=== PATIENT | female | born 1970 | race Caucasian/White ===

== ENCOUNTER 2020-04-19 13:46 | Emergency (ER) | payer OTHER, SELFPAY ==
[2020-04-19 15:34] VITALS: BP 130/84; PULSE 80; RESP 16; TEMP 36.7; O2SAT 99; BMI 40.0
--- NOTE | 2020-04-19 15:59 | ED.GENADULT ---
HPI - General Adult General Chief complaint: General Medical Stated complaint: covid symptoms Time Seen by Provider: 04/19/20 15:59 Source: patient Mode of arrival: ambulatory Limitations: no limitations History of Present Illness HPI narrative: 49-year-old female who presents the emergency room for evaluation of viral-like illness. The patient's son who is also a patient here in the emergency department tested positive for COVID-19 six days prior and received a result 2 days prior. She states she has been sick for approximately 2 days. She complains of right-sided chest pain which is worse with breathing, cough, diarrhea, headache, body aches. She states that she has shortness of breath mainly at night and some mild dyspnea on exertion. She states that she has been able to eat drink. Related Data Allergies Allergy/AdvReac Type Severity Reaction Status Date / Time No Known Allergies Allergy Unverified 01/10/20 16:09 [No Known Allergies*] Review of Systems Review of Systems: Yes all other systems are reviewed and are negative Constitutional: Constitutional: Reports as per HPI Eyes: Eyes: Reports as per HPI ENT: Reports as per HPI Cardiovascular: Cardiovascular: Reports as per HPI Respiratory: Respiratory: Reports as per HPI Gastrointestinal: Gastrointestinal: Reports as per HPI Genitourinary: Genitourinary: Reports as per HPI Musculoskeletal: Musculoskeletal: Reports as per HPI Integumentary/Breasts: Skin/Breast: Reports as per HPI Neurologic: Reports as per HPI and Reports Abnormal speech present Psychiatric: Psychiatric: Reports as per HPI Allergic/Immunologic: Allergic/Immunologic: Reports as per HPI [facility] Past Medical History Attestation statement: The following information was validated with the patient. [facility] Narrative: Patient has a history of hypertension, she states she had a myocardial infarction in the past approximately 10 years ago, she has hypothyroidism. She does smoke cigarettes, she denies alcohol drug use. Social History Social History Advance Directives: No Advance Directives Information Provided: No Physical Exam Vital Signs: Vital Signs: Last Vital Signs Temp 98.0 F 04/19/20 15:34 Pulse 80 04/19/20 15:34 Resp 16 04/19/20 15:34 BP 130/84 04/19/20 15:34 Pulse Ox 99 04/19/20 15:34 Body Mass Index 40.0 Const: General: cooperative and healthy appearing Nutritional Appearance: average body habitus Orientation/consciousness: oriented to person and oriented to place Limitations: no limitations HENMT: Head: Yes normal to inspection, Yes normocephalic and Yes atraumatic Ears: external ears normal General nose exam: Normal external nose present Face and sinus: Yes normal facial exam Mouth: Normal oral and palatal mucosa present Throat: Yes posterior oropharynx normal Eyes: General: appearance normal, both eyes and all related structures Alignment and Position: alignment normal Periorbital: periorbital findings normal Eyelids: Yes eyelids normal Conjunctivae: conjunctivae normal Sclerae: sclerae normal Pupils: Equal, round and reactive pupils present Direct Ophthalmoscopy: normal light reflex Neck: Neck: Yes normal visual inspection and Yes supple Thyroid: Thyroid normal Chest: Chest palpation & inspection: normal inspection of the chest and normal palpation of entire chest wall Resp: Effort & Inspection: normal respiratory effort and able to speak in complete sentences Auscultation: clear to auscultation bilaterally, no crackles, no rales and no rhonchi Cardio: Rate: regular rate Rhythm: regular rhythm Heart sounds: S1 normal heart sound present, S2 normal heart sound present and no murmurs GI: Inspection: Yes normal to inspection Palpation (GI): Soft to palpation, nontender and no guarding Auscultation: normal bowel sounds : General: Yes no CVA tenderness Back/Spine/Pelvis: Back: no CVA tenderness Cervical Spine: normal cervical lordosis Thoracic/Lumbar Spine: thoracic and lumbar spine normal to inspection Skin: General skin exam: no rashes or lesions noted Lesions: no lesions Rashes: no rashes Trauma: no lacerations or abrasions Neuro: General: oriented to person and oriented to place Cranial nerves: Yes CN's II-XII intact bilaterally and Yes Equal, round and reactive pupils present Cognition (Neuro): normal cognition Speech: Abnormal speech present Motor exam (neuro): 5/5 motor strength present throughout Extrem: General: Yes normal to inspection and Yes full ROM Psych: Appearance: grossly normal and well kempt Mental Status: mental status grossly normal Speech and movement: Normal speech and movement present Affect: normal affect Attitude: cooperative Thought process: Normal thought process present Thought content: Normal thought content present Insight: Good insight present (Psych) Judgement: Good judgement present (Psych) Course Course Course Narrative: 49-year-old female who presents emergency department with viral-like illness whose son tested COVID positive 2 days prior. The patient's vital signs reveal there is afebrile with a temperature of 98?, respiratory rate 16 and O2 saturation of 99% on room air. At this time, the patient's symptoms are consistent with COVID-19 infection but I do not think that she has a significant COVID-19 pneumonia or hypoxia and can continue to be managed as an outpatient. I did discuss this with the patient using a tea leaf reader. Discharge Plan Discharge Clinical Impression: COVID-19 virus infection Patient Disposition: Home, Self-Care Instructions: COVID-19 (Coronavirus Disease 2019) (ED) Additional Instructions: Your symptoms are consistent with COVID-19. You need to quarantine for 14 days. Take ibuprofen 200 mg pills, 3 pills every 6 hours as needed for pain. Take Tylenol (acetaminophen) 500 mg pills, 2 pills every 4 to 6 hours as needed for pain. Rest. Increase your fluid intake. Please return to emergency department if your symptoms get worse or if you develop any new symptoms that are concerning to you. Print Language: Korean
== END 2020-04-19 16:44 | disposition home or self-care (01) ==
PROVIDERS: Emergency Provider Emergency Medicine Emergency Medical Services
DX: B34.9 Viral infection, unspecified (principal); Z20.828 Contact with and (suspected) exposure to other viral communicable diseases; F17.210 Nicotine dependence, cigarettes, uncomplicated
CPT/HCPCS: 99283

== ENCOUNTER 2020-04-28 14:05 | Outpatient (REF) | payer OTHER, SELFPAY | END 2020-04-28 14:06 | disposition home or self-care (01) | LOC: HO.LAB 14:05 | PROVIDERS: Visit Provider Internal Medicine | DX: Z20.828 Contact with and (suspected) exposure to other viral communicable diseases (principal) | CPT/HCPCS: 36415; C9803; U0003 ==

== ENCOUNTER → 2020-05-20 10:51 | Outpatient (BNVA) | payer OTHER, SELFPAY | PROVIDERS: Visit Provider Orthopaedic Surgery | DX: M22.2X2 Patellofemoral disorders, left knee (principal); M54.16 Radiculopathy, lumbar region | CPT/HCPCS: 20610; 99212; J1040 ==

== ENCOUNTER → 2020-10-03 11:21 | Outpatient (BNVA) | payer OTHER, SELFPAY | PROVIDERS: Visit Provider Orthopaedic Surgery | DX: M22.2X2 Patellofemoral disorders, left knee (principal); M54.16 Radiculopathy, lumbar region | CPT/HCPCS: 99212; J1040 ==

== ENCOUNTER → 2021-06-09 09:39 | Outpatient (BNV) | payer MEDICAID, SELFPAY | PROVIDERS: PCP Family Medicine; Visit Provider Internal Medicine Medical Oncology | DX: D50.9 Iron deficiency anemia, unspecified (principal); N63.23 Unspecified lump in the left breast, lower outer quadrant; R23.3 Spontaneous ecchymoses | CPT/HCPCS: 99213; 99214 ==

== ENCOUNTER 2021-07-06 07:58 | Outpatient (REF) | payer MEDICAID, SELFPAY | END 2021-07-06 07:59 | disposition home or self-care (01) | LOC: HO.MDS 07:58 | PROVIDERS: PCP Family Medicine; Visit Provider Internal Medicine Medical Oncology | DX: D50.9 Iron deficiency anemia, unspecified (principal) | CPT/HCPCS: 96365; 96366; J1200; J1750; Q0163 ==

== ENCOUNTER 2021-07-09 13:33 | Outpatient (REF) | payer MEDICAID, SELFPAY ==
--- NOTE | ~2021-07-09 | MM_ITS ---
EXAMINATION: MM SCREENING DIGITAL BREAST TOMOSYNTHESIS, BILATERAL CLINICAL INFORMATION: Screening. Asymptomatic. The lifetime risk of breast cancer based on the Tyrer-Cuzick Model is 13%. COMPARISON: Mammography: 08/29/2017, 07/30/2016, 06/05/2015 TECHNIQUE: Digital mammography is performed in craniocaudal and mediolateral oblique views along with computer-aided detection (CAD). Digital breast tomosynthesis is performed in implant-displaced craniocaudal and implant-displaced mediolateral oblique views along with computer-aided detection (CAD). Synthesized 2D images are generated from the tomosynthesis. Additional implant displaced right MLO view is obtained. FINDINGS: There are scattered areas of fibroglandular density (ACR BI-RADS breast composition Category b). There are no significant masses, abnormal calcifications, or other abnormalities. There are bilateral implants. The implant contours are smooth and similar to prior studies. The parenchymal pattern is similar to prior exams. There is no developing density or interval architectural changes. No significant change from prior studies. MM/MM tomosynthesis screen imp BI IMPRESSION: No mammographic evidence of malignancy. ASSESSMENT: BI-RADS 1: Negative RECOMMENDATION: Routine annual mammography screening. This patient's information was entered into a reminder system with a target due date for their next mammogram.
== END 2021-07-09 13:34 | disposition home or self-care (01) ==
LOC: HO.MAMMO 13:33
PROVIDERS: Visit Provider Family Medicine
DX: Z12.31 Encounter for screening mammogram for malignant neoplasm of breast (principal)
CPT/HCPCS: 77063; 77067

== ENCOUNTER 2021-07-30 13:19 | Outpatient (REF) | payer MEDICAID, SELFPAY ==
--- NOTE | ~2021-07-30 | US_ITS ---
EXAMINATION: US THYROID CLINICAL INFORMATION: Nontoxic single thyroid nodule. COMPARISON: Thyroid ultrasound 01/30/2018. TECHNIQUE: Linear transducer grayscale and color Doppler examination with attention to the region of the thyroid. FINDINGS: SIZE: Measurements of the thyroid lobes and nodules are given in sagittal, anteroposterior and transverse dimensions respectively. Right Thyroid Lobe: 2.7 x 0.5 x 0.5 cm, volume 0.3 mL. Previously 3.3 x 1.0 x 0.8 cm, volume 1.4 mL. Parenchyma: The gland echotexture is homogeneous. Thyroid vascularity is normal. Left Thyroid Lobe: 2.5 x 0.8 x 1.0 cm, volume 1.0 mL. Previously 2.6 x 1.2 x 0.9 cm, volume 1.4 mL. Parenchyma: The gland echotexture is homogeneous. Thyroid vascularity is normal. Isthmus: 0.2 cm in maximum AP dimension. Previously 0.2 cm. Estimated total number of nodules greater than or equal to 1 cm: 0. Crusher And Binder Operator nodules are described as follows: 1. Location: Left lateral. Size: 0.3 x 0.4 x 0.5 cm, volume 0.03 mL. Previously: 0.3 x 0.2 x 0.3 cm, volume 0.001 mL. Nodule characteristics: Composition: Cystic(0). ACR TI-RADS total points: 0 ACR TI-RADS category: 1 Significant change in size (>/= 20% in 2 dimensions and minimal increase of 2 mm or 50% or greater increase in volume): No Change in features: No Change in ACR TI-RADS risk category: Not applicable NODES: No lymphadenopathy is seen in the tissue surrounding the thyroid gland. US/US thyroid IMPRESSION: Small thyroid gland. Stable small left thyroid nodule.. ACR TI-RADS RECOMMENDATION REFERENCE: Ultrasound-guided fine-needle aspiration, followup ultrasound, no further follow up. * TR1 (0 point) and TR 2 (2 points): No FNA or follow up * TR3 (3 points): FNA if more than or equal to 2.5 cm in maximum dimension, followup ultrasound in 1, 3 and 5 years if 1.5 to 2.4 cm in maximum dimension. * TR4 (4-6 points): FNA if more than or equal to 1.5 cm in maximum dimension, followup ultrasound in 1, 2, 3 and 5 years if 1 to 1.4 cm in maximum dimension. * TR5 (more than or equal to 7 points): FNA if more than or equal to 1 cm in maximum dimension, followup ultrasound every year for 5 years if 0.5 to 0.9 cm in maximum dimension. * TR3, TR4 or TR5 nodules that are below the size threshold for follow up receive no follow up.
== END 2021-07-30 13:20 | disposition home or self-care (01) ==
LOC: HO.US 13:19
PROVIDERS: Visit Provider Family Medicine
DX: E04.1 Nontoxic single thyroid nodule (principal)
CPT/HCPCS: 76536

== ENCOUNTER 2021-07-31 11:00 | Outpatient (RCR) | payer MEDICAID, SELFPAY | END 2021-09-09 14:39 | disposition home or self-care (01) | LOC: HO.PT 11:00 | PROVIDERS: PCP Family Medicine; Visit Provider Family Medicine | DX: Z98.890 Other specified postprocedural states (principal) | CPT/HCPCS: 97110; 97140; 97162; 97530 ==

== ENCOUNTER 2021-08-13 10:48 | Outpatient (REF) | payer MEDICAID, SELFPAY ==
--- NOTE | ~2021-08-13 | XR_ITS ---
EXAMINATION: XR lumbar spine 4V min CLINICAL INFORMATION: Reason for Exam OTHER SPONDYLOSIS, LUMBAR REGION COMPARISON: MR lumbar spine 02/12/2011 TECHNIQUE: 5 views of the lumbar spine XR/XR lumbar spine 4V min FINDINGS/IMPRESSION: Conventional lumbosacral anatomy with 5 nonrib-bearing lumbar-type vertebral bodies. Vertebral body heights are maintained. Levoconvex curvature of the lumbar spine. Grade 1 retrolisthesis of L3 on L4, new from prior. No pars defects. Lumbar disc space heights are maintained without significant degenerative change. There is mild degenerative disc disease visualized lower thoracic spine with mild loss of disc space height. Bilateral upper quadrant and right mid abdominal surgical clips.
--- NOTE | ~2021-08-13 | XR_ITS ---
EXAMINATION: XR knee LT 4V CLINICAL INFORMATION: Knee pain COMPARISON: Knee radiographs 03/14/2019 TECHNIQUE: 4 views of the knee XR/XR knee LT 4V FINDINGS/IMPRESSION: No acute fracture or dislocation. Moderate degenerative changes of the knee progressed from prior worst involving the medial compartment with there is loss of joint space with medial and patellofemoral compartment osteophytes. Question of an abandoned surgical screw tract through the medial tibial plateau. No joint effusion. Soft tissues are unremarkable.
== END 2021-08-13 10:49 | disposition home or self-care (01) ==
LOC: HO.XRAY 10:48
PROVIDERS: PCP Family Medicine; Visit Provider Physical Medicine & Rehabilitation
DX: M25.562 Pain in left knee (principal); M47.896 Other spondylosis, lumbar region; E66.01 Morbid (severe) obesity due to excess calories
CPT/HCPCS: 72110; 73564

== ENCOUNTER 2021-09-09 07:35 | Outpatient (REF) | payer MEDICAID, SELFPAY ==
[2021-09-09 09:05] LABS: MANUAL DIFF FLAG NO
[2021-09-09 10:20] LABS: Basophils Percent Auto 0.6 % (0-2); Eosinophils Absolute Auto 0.1 X10*3/uL (0.0-0.4); Eosinophils Percent Auto 1.3 % (0-4); Hematocrit 34.8 % (37.0-47.0); Imm Gran Abs Auto 0.02 X10*3/uL (0.00-0.03); Imm Gran Pct Auto 0.3 % (0.0-0.4); Lymphocytes Percent Auto 28.3 % (20-40); Mean Corpuscular HGB Conc 31.6 g/dl (31.0-35.0); Mean Corpuscular Hemoglobin 34.6 pg (27.0-33.0); Mean Corpuscular Volume 109.4 fL (80.0-98.0); Mean Platelet Volume 9.6 fL (9.4-12.3); Monocytes Absolute Auto 1.4 X10*3/uL (0.1-1.2); Monocytes Percent Auto 19.8 % (2-11); Neutrophils Absolute Auto 3.4 x10*3/uL (2.0-8.3); Neutrophils Percent Auto 49.7 % (45-73); Platelet Count 322 X10*3/uL (160-400); Red Blood Count 3.18 X10*6/uL (4.20-5.50); Red Cell Distribution Width 14.4 % (11.0-16.0); White Blood Count 6.9 X10*3/uL (4.8-10.8)
[2021-09-09 11:03] LABS: Alanine Aminotransferase 20 U/L (0-31); Albumin Level 4.1 g/dL (3.5-5.0); Alkaline Phosphatase 119 U/L (39-117); Anion Gap 11 (12-20); Aspartate Amino Transferase 20 U/L (5-31); Bilirubin Total 0.2 mg/dL (0.0-1.0); Blood Urea Nitrogen 23 mg/dL (9-16); Calcium 8.7 mg/dL (8.4-10.2); Carbon Dioxide 27 mmol/L (22-29); Chloride 105 mmol/L (96-108); Estimated Glomerular Filt Rate 58; Glucose Random 66 mg/dL (60-115); Iron 34 mcg/dL (30-160); Percent Iron Saturation 12 % (15-50); Potassium 4.3 mmol/L (3.3-5.1); Sodium 139 mmol/L (135-145); Total Iron Binding Capacity 291 mcg/dL (228-428); Total Protein 6.5 g/dL (6.5-8.0); Unsaturated Iron Binding 257 ug/dL
== END 2021-09-09 07:36 | disposition home or self-care (01) ==
LOC: HO.LAB 07:35
PROVIDERS: PCP Family Medicine; Referring Provider Family Medicine; Visit Provider Physician Assistant
DX: R10.13 Epigastric pain (principal); R11.2 Nausea with vomiting, unspecified; K59.09 Other constipation; K21.9 Gastro-esophageal reflux disease without esophagitis; Z86.010 Personal history of colon polyps
CPT/HCPCS: 36415; 80053; 83540; 85025; 99202

== ENCOUNTER 2021-09-11 10:46 | Outpatient (REF) | payer MEDICAID, SELFPAY ==
--- NOTE | ~2021-09-11 | CT_ITS ---
EXAMINATION: CT CHEST WITHOUT CONTRAST CLINICAL INFORMATION: Abnormal finding of lung field COMPARISON: Previous chest CTA June 2019 TECHNIQUE: Multidetector volumetric CT imaging of the chest was done. Axial MIP volume rendering provided. Sagittal and coronal reformatted images were obtained. This CT examination was performed using dose optimization techniques as appropriate, variously including the following: *Automated exposure control *Adjustment of mA and/or kV according to patient size (this includes techniques or standardized protocols for targeted exams where dose is matched to indication/reason for exam; i.e. extremities or head) *Use of iterative reconstruction technique DLP: 123 mGy-cm FINDINGS: MARKETING EDITOR: LUNGS: There is a 2 mm right upper lobe peripheral or subpleural nodule axial image series 7. There is a 3 mm peripheral or subpleural left lower lobe nodule axial image 354 series 7. The lungs are otherwise clear. No endobronchial or endotracheal lesion is seen. MEDIASTINUM: The mediastinum is normal. PLEURA: There is no pleural effusion. No pleural mass or thickening. AXILLA: Bilateral breast implants. No chest wall mass or enlarged axillary lymph nodes. UPPER ABDOMEN: There are postsurgical changes to the stomach. OSSEOUS STRUCTURES: Degenerative changes of the spine. CT/CT chest wo con IMPRESSION: Small pulmonary nodules probably representing peripheral or subpleural lymph nodes. These are not appreciated on previous June 2019 chest CTA. According to the UPDATED 2017 Fleischner Society recommendations, the advised follow-up imaging for less than 6 mm solid nodule: Low risk, no chest CT follow-up and high risk, optional chest CT follow-up in one year. Fleischner guidelines were followed.
== END 2021-09-11 10:47 | disposition home or self-care (01) ==
LOC: HO.CT 10:46
PROVIDERS: Visit Provider Family Medicine
DX: R91.8 Other nonspecific abnormal finding of lung field (principal)
CPT/HCPCS: 71250

== ENCOUNTER 2021-10-29 09:37 | Outpatient (REF) | payer MEDICAID, SELFPAY ==
--- NOTE | ~2021-10-29 | FL_ITS ---
EXAMINATION: FL BARIUM SWALLOW CLINICAL INFORMATION: Nausea with vomiting. COMPARISON: CT scan of the chest August 2021. Prior upper GI series with small bowel January 2019. TECHNIQUE: Barium swallow examination is performed using fluoroscopic evaluation in addition to multiple fluoroscopic spot views. The patient is imaged both upright and prone and using both thick and thin sulfate along with effervescent granules. FLUOROSCOPY TIME: 0.7 minutes IMAGES: 18 TOTAL: 18.201 mGy DAP: 5.465 Gy-cm2 FINDINGS: Findings consistent with prior gastric surgery. A hiatal hernia is noted as seen previously. No reflux. The swallowing mechanism appears normal. Normal passage of contrast through the esophagus with otherwise normal-appearing contraction. No filling defects or ulcerations or stricture. FL/FL barium swallow IMPRESSION: Persistent hiatal hernia without reflux. Additional findings are stable consistent with history of prior gastric surgery.
== END 2021-10-29 09:38 | disposition home or self-care (01) ==
LOC: HO.XRAY 09:37
PROVIDERS: PCP Family Medicine; Visit Provider Physician Assistant
DX: R10.13 Epigastric pain (principal); K21.9 Gastro-esophageal reflux disease without esophagitis; K59.09 Other constipation; R11.2 Nausea with vomiting, unspecified; Z98.84 Bariatric surgery status
CPT/HCPCS: 74220

== ENCOUNTER 2022-02-24 06:04 | Inpatient (IN) | payer MEDICAID, SELFPAY ==
[2022-02-24] VITALS (11 sets, daily range): BP systolic 95–118; BP diastolic 58–76; PULSE 76–108; RESP 15–28; TEMP 35.5–37.3; O2SAT 91–100; BMI 32.8
--- NOTE | ~2022-02-24 | XR_ITS ---
EXAMINATION: XR CHEST CLINICAL INFORMATION: Mental status change, rhonchi COMPARISON: 09/11/2021 TECHNIQUE: Frontal view of the chest was obtained. FINDINGS: The lungs are hypoinflated. Heterogeneous opacities are present in the suprahilar regions bilaterally. No appreciable pneumothorax or pleural effusion. The cardiomediastinal contour is unremarkable. No acute osseous findings are seen. XR/XR chest 1V IMPRESSION: Heterogeneous opacities in the suprahilar regions bilaterally, which could reflect pneumonia versus aspiration in the proper clinical setting.
[2022-02-24 06:12] LABS: Glucose, Whole Blood 197 mg/dL (60-115)
--- NOTE | 2022-02-24 06:16 | ECG_ITS ---
Test Reason : UNRESPONSIVE Blood Pressure : / mmHG Vent. Rate : 106 BPM Atrial Rate : 106 BPM P-R Int : 148 ms QRS Dur : 094 ms QT Int : 374 ms P-R-T Axes : 062 -05 039 degrees QTc Int : 496 ms Sinus tachycardia Otherwise normal ECG When compared with ECG of 12-JUL-2019 10:06, No significant change was found Heart rate has increased Referred By: John Sandy Electronically Signed By:PREETI CURIEL MD
--- NOTE | 2022-02-24 06:16 | ED.AMS ---
HPI - Altered Mental Status General Chief Complaint: Overdose Stated Complaint: unresponsive Time Seen by Provider: 02/24/22 06:15 Source: patient and EMS Mode of arrival: EMS Limitations: no limitations (Speaks some Maori, 1st language is Tamazight, vocational training instructor used.) and altered mental status History of Present Illness HPI narrative: 51-year-old female who presents emergency department for evaluation of altered mental status. According to the paramedics, the family was unable to wake the patient up this morning and they called 911. According to paramedics, the police were on the scene 1st in were assisting the patient's respirations with a bag-valve mask. Paramedics noted pinpoint pupils and the patient was given Narcan with little effect. However the patient did open her eyes but was nonverbal. In the emergency department she was able to tell me her name but did appear to be lethargic. She was given Narcan 2 mg IV in became awake and more responsive. The patient stated that she was anxious last night and her friend gave her till which she was told was lorazepam. The patient denies drug use. Related Data Home Medications Medication Instructions Recorded Confirmed amlodipine 10 mg tablet 1 tab PO DAILY 06/09/21 11/16/21 aspirin 81 mg tablet,delayed 1 tab PO DAILY 06/09/21 11/16/21 release carvedilol 3.125 mg tablet 1 tab PO BID 06/09/21 11/16/21 docusate sodium 100 mg capsule 2 cap PO DAILY PRN constipation 06/09/21 11/16/21 duloxetine 30 mg capsule,delayed 1 cap PO DAILY 06/09/21 11/16/21 release ferrous sulfate 325 mg (65 mg 1 tab PO TID 06/09/21 11/16/21 iron) tablet (FeroSul) furosemide 20 mg tablet 1 tab PO DAILY 06/09/21 11/16/21 isosorbide mononitrate 30 mg 1 tab PO QPM 06/09/21 09/09/21 tablet,extended release 24 hr meclizine 25 mg tablet 1 tab PO Q8H PRN dizziness 06/09/21 11/16/21 nitroglycerin 0.4 mg sublingual 0.4 mg sublingual NEEDED PRN 06/09/21 09/09/21 tablet Chest Pain sertraline 25 mg tablet 1 tab PO DAILY 06/09/21 11/16/21 levothyroxine 150 mcg tablet 1 tab PO DAILY 11/16/21 11/16/21 Previous Rx's Medication Instructions Recorded pantoprazole 20 mg tablet,delayed 20 mg PO BID 30 days #60 tabs 09/09/21 release polyethylene glycol 3350 17 17 g PO DAILY #510 grams 09/09/21 gram/dose oral powder (Miralax) sucralfate 1 gram tablet 1 g PO QID #90 tabs 11/24/21 Allergies Allergy/AdvReac Type Severity Reaction Status Date / Time No Known Allergies Allergy Unverified 06/09/21 09:54 [No Known Allergies*] Review of Systems Review of Systems: Yes Unobtainable due to mental status PMFSH Past Medical History Medical History Depression HTN (hypertension) Hx of chest pain Hyperlipidemia Iron deficiency anemia Osteoarthritis Surgical History History of knee surgery History of Ceci-en-Y gastric bypass (~2004) Hx of appendectomy Hx of colonoscopy Hx of esophagogastroduodenoscopy (~02/2018) Status post laparoscopic cholecystectomy Status post tonsillectomy Family History Family History Sister Breast cancer Social History Social History Household Members: None Housing: House Are you a primary insurance healthcare consultant to a significant other at home: No Do you presently have visiting nurse or other home services: No Patient Tobacco Use Status: Never used Tobacco Second Hand Smoke Exposure: No Advance Directives: No Advance Directives Information Provided: No service: No Current occupational status: employed Current occupation: daycare provider Physical Exam ED Vital Signs: Vital Signs - 24 hr 02/24/22 06:11 Temperature 95.9 F L Pulse Rate 108 H Respiratory Rate 28 H Blood Pressure 115/76 Pulse Oximetry 100 Oxygen Delivery Method Nasal Cannula BMI result Body Mass Index 32.8 Const Other: Lethargic but arousable, patient was much more responsive after receiving Narcan 2 mg IV HENMT Head: Yes normal to inspection, Yes normocephalic and Yes atraumatic Ears: external ears normal General nose exam: Normal external nose present Face and sinus: Yes normal facial exam Mouth: Normal oral and palatal mucosa present Throat: Yes posterior oropharynx normal Eyes General: appearance normal, both eyes and all related structures Neck Neck: Yes normal visual inspection, Yes no lymphadenopathy, Yes trachea midline and Yes supple Chest Chest palpation & inspection: normal inspection of the chest and normal palpation of entire chest wall Resp Auscultation: rhonchi (Diffuse rhonchorous sounds, no wheezing, no rales) Cardio Rate: regular rate Rhythm: regular rhythm Heart sounds: S1 normal heart sound present, S2 normal heart sound present and no murmurs GI Inspection: Yes normal to inspection Palpation (GI): Soft to palpation, nontender and no guarding Auscultation: normal bowel sounds General: Yes no CVA tenderness Back/Spine/Pelvis Back: no CVA tenderness Skin General skin exam: no rashes or lesions noted Neuro Other: Oriented to person, lethargic but more arousable after receiving Narcan, moves all extremities symmetrically, oriented to person and place Extrem General: Yes normal to inspection Psych Appearance: grossly normal Course Course Course Narrative: 51-year-old female who was unarousable this morning, her family was unable to wake her up in the called 911. Police and 1st responders and felt that the patient was not breathing appropriately and they assisted her breathing with a bag-valve mask. When the paramedics arrived in of patient's pupils were pinpoint and did give the patient Narcan with some improvement of her mental status. Emergency department she was given Narcan 2 mg IV with significant improvement of her mental status. She did tell us that a friend the 1st day for a pill last night for anxiety which she believes was lorazepam. She took this pill at around 21:00 hours. Patient's initial vital signs revealed elevated heart rate 108, elevated respiratory 28, hypothermia with a temperature of 95.9 degrees, O2 saturation was 100% on 4 L via nasal cannula. The patient's lung exam did reveal diffuse rhonchorous sounds. The patient had a another episode of lethargy or she became hypoxic requiring oxygen via OxyMask. I ordered a laboratory evaluation to include CBC, CMP, lipase COVID-19, urine drug screen, alcohol level, influenza, lactic acid, PT/INR, PTT, blood cultures x2. Patient was ordered to get another dose of Narcan 2 mg IV and Zosyn 4.5 g IV for possible aspiration pneumonia. In reviewing her previous tox screens from 07/12/2019 and 11/05/2019 she was positive for opiates, benzodiazepines, cocaine and cannabinoids. 0729: The patient's became somnolent again and required a 3rd dose of Narcan 2 mg IV. The patient's chest x-ray is consistent with bilateral aspiration pneumonia versus pulmonary edema. [place] [address] . She has a macrocytic anemia with an H&H of 11.737 with an MCV of 108.5-this is chronic. Elevated lactic acid 3.2. EKG did reveal a prolonged QTC interval of 496 milliseconds which could be secondary to long-acting opiates such as methadone or other medications. I will start the patient on a Narcan drip and discuss admission with covering asp net mvc developer. 0750: I did discuss the patient's present with the covering asp net mvc developer, Dr. Chairez who will come to the emergency department evaluate the patient. He agreed with starting the Narcan drip. He recommended the patient get a Mccord catheter, ABG, BNP, CK and troponin. Patient's laboratory evaluation is pending at shift, therefore the patient's care was turned over to my colleague, Dr. Linh Haney [facility] - Altered Mental Status Medical Records Attestation: I reviewed the patient's medical records. Lab Data Attestation: I reviewed the patient's lab results. Result diagrams: 02/24/22 07:20 02/24/22 07:20 Labs: Lab Results 02/24/22 02/24/22 02/24/22 Range/Units 06:08 06:58 06:58 WBC (4.8-10.8) X10*3/uL RBC (4.20-5.50) X10*6/uL Hgb (12.0-16.0) g/dl Hct (37.0-47.0) % MCV (80.0-98.0) fL MCH (27.0-33.0) pg MCHC (31.0-35.0) g/dl RDW (11.0-16.0) % Plt Count (160-400) X10*3/uL MPV (9.4-12.3) fL Immature Gran % (Auto) (0.0-0.4) % Neut % (Auto) (45-73) % Lymph % (Auto) (20-40) % [place] % (Auto) (2-11) % Eos % (Auto) (0-4) % Baso % (Auto) (0-2) % Lymph # (Auto) (1.2-4.9) X10*3/uL [place] # (Auto) (0.1-1.2) X10*3/uL Eos # (Auto) (0.0-0.4) X10*3/uL Baso # (Auto) (0.0-0.2) X10*3/uL Abs Immat Gran (auto) (0.00-0.03) X10*3/uL Absolute Neuts (auto) (2.0-8.3) x10*3/uL Absolute Nucleated RBC (0.0-0.012) X10*3/uL Nucleated RBC % (auto) (0.0-0.2) /100WBC PT (10.0-13.1) SEC INR (0.9-1.1) APTT (26.0-36.4) SEC Sodium (135-145) mmol/L Potassium (3.3-5.1) mmol/L Chloride (96-108) mmol/L Carbon Dioxide (22-29) mmol/L Anion Gap (12-20) BUN (9-16) mg/dL Creatinine (0.5-1.4) mg/dL Estim Creat Clear Calc Estimated GFR POC Glucose 197 H (60-115) mg/dL Random Glucose (60-115) mg/dL Lactic Acid 3.2 H* (0.5-2.0) mmol/L Calcium (8.4-10.2) mg/dL AST (5-31) U/L ALT (0-31) U/L Alkaline Phosphatase (39-117) U/L Total Protein (6.5-8.0) g/dL Albumin (3.5-5.0) g/dL Lipase (8-78) U/L COVID-19 (BRISA) Negative (Negative) COVID-19 Clin Com See Note 02/24/22 02/24/22 02/24/22 Range/Units 07:20 07:20 07:20 WBC 15.3 H (4.8-10.8) X10*3/uL RBC 3.41 L (4.20-5.50) X10*6/uL Hgb 11.7 L (12.0-16.0) g/dl Hct 37.0 (37.0-47.0) % MCV 108.5 H (80.0-98.0) fL MCH 34.3 H (27.0-33.0) pg MCHC 31.6 (31.0-35.0) g/dl RDW 14.2 (11.0-16.0) % Plt Count 357 (160-400) X10*3/uL MPV 9.1 L (9.4-12.3) fL Immature Gran % (Auto) 0.7 H (0.0-0.4) % Neut % (Auto) 86.1 H (45-73) % Lymph % (Auto) 3.3 L (20-40) % [place] % (Auto) 9.5 (2-11) % Eos % (Auto) 0.2 (0-4) % Baso % (Auto) 0.2 (0-2) % Lymph # (Auto) 0.5 L (1.2-4.9) X10*3/uL [place] # (Auto) 1.5 H (0.1-1.2) X10*3/uL Eos # (Auto) 0.0 (0.0-0.4) X10*3/uL Baso # (Auto) 0.0 (0.0-0.2) X10*3/uL Abs Immat Gran (auto) 0.11 H (0.00-0.03) X10*3/uL Absolute Neuts (auto) 13.2 H (2.0-8.3) x10*3/uL Absolute Nucleated RBC 0.000 (0.0-0.012) X10*3/uL Nucleated RBC % (auto) 0.0 (0.0-0.2) /100WBC PT 9.7 L (10.0-13.1) SEC INR 0.9 (0.9-1.1) APTT 25.8 L (26.0-36.4) SEC Sodium 138 (135-145) mmol/L Potassium 4.2 (3.3-5.1) mmol/L Chloride 104 (96-108) mmol/L Carbon Dioxide 19 L (22-29) mmol/L Anion Gap 19 (12-20) BUN 32 H (9-16) mg/dL Creatinine 1.29 (0.5-1.4) mg/dL Estim Creat Clear Calc 54.1 Estimated GFR 44 POC Glucose (60-115) mg/dL Random Glucose 68 (60-115) mg/dL Lactic Acid (0.5-2.0) mmol/L Calcium 8.7 (8.4-10.2) mg/dL AST 30 D (5-31) U/L ALT 24 (0-31) U/L Alkaline Phosphatase 119 H (39-117) U/L Total Protein 7.0 (6.5-8.0) g/dL Albumin 4.6 (3.5-5.0) g/dL Lipase 33 (8-78) U/L COVID-19 (BRISA) (Negative) COVID-19 Clin Com ECG Data ECG #1: Attestation: I personally reviewed and interpreted this ECG as follows: Interpretation: 0623: Sinus tachycardia with a rate of 106, normal LA interval, normal QRS interval with a prolonged QTC of [address] segment elevation, no ST segment depression, no PACs, no PVCs, no significant T-wave abnormalities Critical Care Time Critical Care Time Critical Care Time: Yes Total Critical Care Time: 45 Attestation: Critical Care: The patient was critically ill with a high probability of imminent or life threatening deterioration. I spent greater than 30 minutes of discontinuous time evaluating the patient,delivering critical care at the bedside, discussing and evaluating pertinent data with consultants. Critical care time does not include time spent performing separately billable procedures or teaching. Total time spent performing critical care was 45 minutes. Discharge Plan Discharge Clinical Impression: Opiate overdose, Hypoxia, Aspiration pneumonia Prescriptions: No Action sucralfate 1 gram tablet 1 g PO QID Qty: 90 0RF levothyroxine 150 mcg tablet 1 tab PO DAILY isosorbide mononitrate 30 mg tablet extended release 24 hr 1 tab PO QPM aspirin 81 mg tablet,delayed release (DR/EC) 1 tab PO DAILY carvedilol 3.125 mg tablet 1 tab PO BID meclizine 25 mg tablet 1 tab PO Q8H PRN (Reason: dizziness) amlodipine 10 mg tablet 1 tab PO DAILY ferrous sulfate [FeroSul] 325 mg (65 mg iron) tablet 1 tab PO TID nitroglycerin 0.4 mg tablet, sublingual 0.4 mg sublingual NEEDED PRN (Reason: Chest Pain) docusate sodium 100 mg capsule 2 cap PO DAILY PRN (Reason: constipation) sertraline 25 mg tablet 1 tab PO DAILY furosemide 20 mg tablet 1 tab PO DAILY duloxetine 30 mg capsule,delayed release(DR/EC) 1 cap PO DAILY pantoprazole 20 mg tablet,delayed release (DR/EC) 20 mg PO BID 30 Days Qty: 60 6RF polyethylene glycol 3350 [Miralax] 17 gram/dose powder 17 g PO DAILY Qty: 510 2RF
[2022-02-24] MEDS: Naloxone HCl 2 MG/2 ML SYRINGE IVPUSH ×2 (06:25→07:23)
--- NOTE | 2022-02-24 06:28 | PC.NURSE ---
heating blanket on pt.
--- NOTE | 2022-02-24 06:36 | PC.NURSE ---
pt placed on 100% non rebreather due to o2 dropped to 80's pt became sleepy difficult to arrouse. provider at bedside resp on their way. hob elevated. xray at bedside lungs sound wet.
[2022-02-24] MEDS: Piperacillin Sodium/Tazobactam 4.5 GM in 0.9 % Sodium Chloride 100 ML IV (07:25)
[2022-02-24 07:26] LABS: MANUAL DIFF FLAG NO
[2022-02-24 07:28] LABS: Basophils Percent Auto 0.2 % (0-2); Eosinophils Percent Auto 0.2 % (0-4); Hemoglobin 11.7 g/dl (12.0-16.0); Imm Gran Abs Auto 0.11 X10*3/uL (0.00-0.03); Imm Gran Pct Auto 0.7 % (0.0-0.4); Lymphocytes Absolute Auto 0.5 X10*3/uL (1.2-4.9); Lymphocytes Percent Auto 3.3 % (20-40); Mean Corpuscular HGB Conc 31.6 g/dl (31.0-35.0); Mean Corpuscular Hemoglobin 34.3 pg (27.0-33.0); Mean Corpuscular Volume 108.5 fL (80.0-98.0); Mean Platelet Volume 9.1 fL (9.4-12.3); Monocytes Absolute Auto 1.5 X10*3/uL (0.1-1.2); Monocytes Percent Auto 9.5 % (2-11); Neutrophils Absolute Auto 13.2 x10*3/uL (2.0-8.3); Neutrophils Percent Auto 86.1 % (45-73); Platelet Count 357 X10*3/uL (160-400); Red Blood Count 3.41 X10*6/uL (4.20-5.50); Red Cell Distribution Width 14.2 % (11.0-16.0); White Blood Count 15.3 X10*3/uL (4.8-10.8)
[2022-02-24 07:34] LABS: Lactic Acid 3.2 mmol/L (0.5-2.0)
[2022-02-24 07:34] LABS: INTERNATIONAL NORM RATIO 0.9 (0.9-1.1); Prothrombin Time 9.7 SEC (10.0-13.1)
[2022-02-24 07:37] LABS: Partial Thromboplastin Time 25.8 SEC (26.0-36.4)
[2022-02-24 07:43] LABS: COVID-19 Test Negative (Negative); IDNOW Serial# 16C4AD1C
[2022-02-24 07:46] LABS: Alanine Aminotransferase 24 U/L (0-31); Albumin Level 4.6 g/dL (3.5-5.0); Alkaline Phosphatase 119 U/L (39-117); Anion Gap 19 (12-20); Aspartate Amino Transferase 30 U/L (5-31); Blood Urea Nitrogen 32 mg/dL (9-16); Calcium 8.7 mg/dL (8.4-10.2); Carbon Dioxide 19 mmol/L (22-29); Chloride 104 mmol/L (96-108); Creatinine Clr Calc Pharmacy 54.1; Estimated Glomerular Filt Rate 44; Glucose Random 68 mg/dL (60-115); Lipase 33 U/L (8-78); Potassium 4.2 mmol/L (3.3-5.1); Sodium 138 mmol/L (135-145)
[2022-02-24 07:49] LABS: IDNOW Serial# 16C4AD1C; Influenza A Negative (Negative); Influenza B2 Negative (Negative)
[2022-02-24 07:52] LABS: Ethanol < 10 mg/dL
[2022-02-24 07:55] LABS: Bilirubin Total < 0.2 mg/dL (0.0-1.0)
[2022-02-24 08:38] LABS: ABG Base Excess -6.8 mmol/L; ABG HCO3 18 mmol/L (22-26); ABG pCO2 34 mmHg (32-45); ABG pH 7.32 (7.35-7.45); ABG pO2 68 mmHg (83-108)
[2022-02-24 09:04] LABS: Reflex Lactate? Lactic Acid Added
[2022-02-24 09:09] LABS: Appearance Urine Clear; Color Urine Yellow; Glucose Urine UA Negative (Negative); Leukocyte Esterase Urine Negative (Negative); Nitrite Urine Negative (Negative); PH 5.5 (5.0-9.0); UMIC TRIGGER UACC YES; Urine Blood Negative (Negative); Urine Ketones 15 mg/dL (Negative); Urine Protein 30 (1+) mg/dL (Neg-Trace)
[2022-02-24 09:12] LABS: Amphetamine Screen Urine Not Detected (Not Detect); Barbiturates, Urine Not Detected (Not Detect); Benzodiazepines Screen Urine Not Detected (Not Detect); Cannabinoid Screen Urine Not Detected (Not Detect); Cocaine Screen Urine POSITIVE (Not Detect); Fentanyl, urine POSITIVE (Not Detect); Opiate Screen Urine POSITIVE (Not Detect); Phencyclidine Screen Urine Not Detected (Not Detect)
[2022-02-24 09:19] LABS: B Type Natriuretic Peptide 35 pg/mL (<100); Troponin-I High Sensitivity 12.9 ng/L (<3.5-17.0)
[2022-02-24 09:22] LABS: Bacteria Urine None Seen (None Seen); RBC Urine 0-2 /HPF (0-2); WBC Urine 0-5 /HPF (0-5)
--- NOTE | 2022-02-24 09:28 | PHA.MEDREC ---
Pharmacy Consult ? Medication Reconciliation Pharmacy has completed the medication reconciliation. Unable to speak with patient.Claim history used for med rec
--- NOTE | 2022-02-24 09:58 | P.CONCC_ITS ---
History of Present Illness Data of Consult Service Date: 02/24/22 Requesting physician: John Sandy Primary Care Provider: [facility] Reason for consult: Altered mental status 51-year-old female moderately obese but status post gastric bypass surgery in the past with background of COVID-19 infection a year and half ago and history of polysubstance abuse who was found by family to be 89 this morning no apparent witnessed seizure activity but unarousable with pinpoint pupils and him having partial responses to transnasal Narcan and was called to come see her because of changes on chest x-ray with hypoxemic respiratory failure and when we saw her she was sleeping quietly with respiratory rate of 21 good tidal volumes clinically comfortable end-tidal CO2 oxygen saturation compensated at 95% chest x-ray consistent with interstitial edema certainly could not rule out the possibility of outpatient aspiration but in all likelihood noncardiogenic pulmonary edema and then sure enough the toxicology screen revealed fentanyl opiates and cocaine take her choices as far as the lung findings are concerned with normal BNP normal troponin and normal 12 lead EKG and a bedside echo showing globally normal systolic wall motion of the left ventricle without primary valve or pericardial disease and normal right ventricular size and dimension and function No respiratory distress no use of accessory muscles no diaphragmatic effort On blood gas there was a negative base excess of 6.8 but a lactate level of only 3.2 so it was a mixed metabolic acidosis which was mild with a pH of 7.3 to and I do not believe this all to be a septic mechanism I believe this is just ref lecting circulatory in adequacy which currently looks again better compensated and at this point needs to have a Mccord catheter in to demonstrate urine output as a feature of a recovered circulation Review of Systems Review of Systems: Yes Unobtainable due to mental status PMFSH Past Medical History Medical History (Updated 02/24/22 @ 10:07 by Say Chairez MD) Cocaine abuse Depression Fentanyl use disorder, severe HTN (hypertension) Hx of chest pain Hyperlipidemia Iron deficiency anemia Osteoarthritis Family History Family History Sister Breast cancer Surgical History Surgical History History of knee surgery History of Ceci-en-Y gastric bypass (~2004) Hx of appendectomy Hx of colonoscopy Hx of esophagogastroduodenoscopy (~02/2018) Status post laparoscopic cholecystectomy Status post tonsillectomy Social History Social History Household Members: None Housing: House Are you a primary health careers instructor to a significant other at home: No Do you presently have visiting nurse or other home services: No Patient Tobacco Use Status: Never used Tobacco Second Hand Smoke Exposure: No Advance Directives: No Advance Directives Information Provided: No service: No Current occupational status: employed Current occupation: daycare provider Meds Allergies Allergy/AdvReac Type Severity Reaction Status Date / Time No Known Allergies Allergy Unverified 06/09/21 09:54 [No Known Allergies*] Active Medications: Current Medications Naloxone HCl 5 mg/ Dextrose 100 mls @ 40 mls/hr IV .Q2H30M SHIRA Lactated Ringer's (Lr) 1,000 mls @ 125 mls/hr IV .Q8H SHIRA Stop: 02/24/22 12:56 Pharmacy Consult (Consult Rx Perform Med Rec) 1 each MISCELLANE ONCE PRN PRN Reason: Consult order Home Medications Medication Instructions Recorded Confirmed Last Taken Type amlodipine 10 mg tablet 1 tab PO DAILY 06/09/21 02/24/22 Unknown History aspirin 81 mg tablet,delayed 1 tab PO DAILY 06/09/21 02/24/22 Unknown History release carvedilol 3.125 mg tablet 1 tab PO BID 06/09/21 02/24/22 Unknown History docusate sodium 100 mg capsule 2 cap PO DAILY PRN constipation 06/09/21 02/24/22 Unknown History furosemide 20 mg tablet 1 tab PO DAILY 06/09/21 02/24/22 Unknown History isosorbide mononitrate 30 mg 1 tab PO QPM 06/09/21 02/24/22 Unknown History tablet,extended release 24 hr nitroglycerin 0.4 mg sublingual 0.4 mg sublingual Q5M PRN Chest 06/09/21 02/24/22 Unknown History tablet Pain levothyroxine 150 mcg tablet 1 tab PO DAILY@0630 11/16/21 02/24/22 Unknown History buspirone 7.5 mg tablet 1 tab PO TID 02/24/22 02/24/22 Unknown History diclofenac potassium 50 mg tablet 1 tab PO BID PRN moderate pain 02/24/22 02/24/22 Unknown History duloxetine 60 mg capsule,delayed 1 cap PO DAILY 02/24/22 02/24/22 Unknown History release fluoxetine 20 mg capsule 1 cap PO DAILY 02/24/22 02/24/22 Unknown History hydroxyzine pamoate 25 mg capsule 1 cap PO TID PRN Anxiety 02/24/22 02/24/22 Unknown History lidocaine 5 % topical patch 1 patch topical DAILY PRN PAIN 02/24/22 02/24/22 Unknown History (Lidoderm) pantoprazole 20 mg tablet,delayed 20 mg PO BID@0630,1630 02/24/22 02/24/22 Unknown History release sucralfate 1 gram tablet 1 tab PO QID 02/24/22 02/24/22 Unknown History tramadol 50 mg tablet 1 tab PO Q8H PRN pain 02/24/22 02/24/22 Unknown History trazodone 50 mg tablet 1 tab PO BEDTIME PRN insomnia 02/24/22 02/24/22 Unknown History Physical Exam Vital Signs: Vital Signs: Last Vital Signs Temp 99.1 F 02/24/22 08:47 Pulse 95 02/24/22 08:47 Resp 19 02/24/22 08:47 BP 97/59 L 02/24/22 08:47 Pulse Ox 95 02/24/22 08:47 O2 Del Method 02/24/22 08:47 O2 Flow Rate 7 02/24/22 08:47 Oxygen Flow Rate 5 02/24/22 06:11 BMI result Body Mass Index 32.8 Currently sleeping arousable to painful stimuli Bedside echo demonstrates class 1 LV function and RV function Lungs without adventitious sounds Abdomen soft without organomegaly Skin and peripheral no acrocyanosis no livedo warm well perfused mildly hypothermic Results Labs CBC & Chem 7: 02/24/22 07:20 02/24/22 07:20 Labs: Short CBC 02/24/22 Range/Units 07:20 WBC 15.3 H (4.8-10.8) X10*3/uL Hgb 11.7 L (12.0-16.0) g/dl Hct 37.0 (37.0-47.0) % Plt Count 357 (160-400) X10*3/uL BMP 02/24/22 07:20 Sodium 138 Potassium 4.2 Chloride 104 Carbon Dioxide 19 L BUN 32 H Creatinine 1.29 Calcium 8.7 Cardiac Enzymes 02/24/22 Range/Units 07:20 Total Creatine Kinase 170 H (26-140) U/L Liver Function 02/24/22 Range/Units 07:20 Total Bilirubin < 0.2 (0.0-1.0) mg/dL AST 30 D (5-31) U/L ALT 24 (0-31) U/L Alkaline Phosphatase 119 H (39-117) U/L Albumin 4.6 (3.5-5.0) g/dL Urine 02/24/22 Range/Units 08:42 Urine Color Yellow Urine Appearance Clear Urine pH 5.5 (5.0-9.0) Ur Specific [place] 1.020 (1.005-1.025) Urine Protein 30 (1+) H (Neg-Trace) mg/dL Urine Glucose (UA) Negative (Negative) mg/dL Assessment and Plan (1) Cocaine abuse: Status: Acute (2) Fentanyl use disorder, severe: Status: Acute (3) History of Ceci-en-Y gastric bypass: Status: Acute (4) Aspiration pneumonia: Status: Acute (5) Hypoxia: Status: Acute (6) Opiate overdose: Status: Acute (7) Acid reflux: Status: Acute (8) COVID-19 virus infection: Status: Acute (9) Pulmonary edema: Status: Acute Plan So we have a polysubstance abuser who did it again and comes in with altered mental status but no features of delirium or agitation currently sleeping quietly with adequate respiration arousable the no to painful stimuli who therefore does not require a Narcan drip breathing comfortably presumably the LV airway protection and the appearance of chest x-ray is that of a noncardiogenic form of pulmonary edema and take you pick of which 1 of the above drugs on her all the above in combination causing it which should all spontaneously resolve and the elevated lactate in all likelihood when she was in the more depressed state before the fluid in the Narcan etc. and she was given probably represented a feature of circulatory inadequacy I do not believe that this is a septic individual
[2022-02-24] MEDS: Lactated Ringers 1,000 ML 125 ML IV (10:06)
--- NOTE | 2022-02-24 10:10 | PC.NURSE ---
PT ON SHIFT CHANGE THIS MORNING, UNRESPONSIVE EXCEPT PAINFUL STIMULATION. HYPOXIC, HYPOTHERMIC, ON OXYMASK AND BEAR HUGGER. GIVEN 2MG IV NARCAN BECAME SLIGHTLY RESPONSIVE QUICKLY FELL BACK TO SLEEP. ED PROVIDER CONSULTED ICU PROVIDER, ADDITIONAL LABS OBTAINED TEMP PARTH PLACED. CURRENTLY PT IS RESPONSIVE AWAKE AND TALKING WITH FAMILY MEMBER.
[2022-02-24 10:44] LABS: ~Lactic Acid-LAB USE ONLY 0.5 mmol/L (0.5-2.0)
[2022-02-24 11:24] LABS: VBG Base Excess -8.4 mmol/L; VBG HCO3 16 mmol/L (22-26); VBG pCO2 33 mmHg; VBG pO2 94 mmHg
[2022-02-24 11:25] LABS: Venous Blood Gas Refer to POC result
[2022-02-24 11:34] LABS: Lactic Acid 0.5 mmol/L (0.5-2.0)
--- NOTE | 2022-02-24 11:54 | P.HPHOSP_ITS ---
History of Present Illness Date of Service: 02/24/22 Attending physician on admission: Andreea Crocker Chief Complaint: unresponsive, opiate OD 51 year old female with history of history polysubstance abuse including cocaine, depression, hypertension, hyperlipidemia, chest pain with negative cardiac cath, iron deficiency anemia, h/o gastric bypass, and osteoarthritis presented to the ED this am via EMS after being found unresponsive, unarousable, by her family. According to paramedics, the police were on the scene 1st in were assisting the patient's respirations with a bag-valve mask.? Paramedics noted pinpoint pupils and the patient was given Narcan with little effect.? However the patient did open her eyes but was nonverbal.? In the emergency department initially oriented to self only but lethargic.? She was given Narcan 2 mg IV in became awake and more responsive. Patient has two subsequent episodes of lethargy requiring IV narcan. Pt has WBC 15,000, chronic stable anemia. Renal function baseline. Electrolytes nrmal except for CO2 19. VBG with pH 7.30, HCO3 16. ABG pH 7.32, HCO3 18, pO2 68. Place on xymask at 3L. Lactic acid initially elevated 3.2, improved to 0.5. Temp on arrival 95.9, placed under bear hugger improved to 99.0. Initially tachy to 108 with RR 28. EKG showed prolonged QTc. Glue Specialty Supervisor advised rodriguez catheter which was placed. CXR showed bilateral aspiration pneumonia va pulmonary edema. Bedside echo performed showing normal systolic LV function, no valvular or pericardial disease. Case discussed with Dr. Ramirez in intensive care. narcan drip initially considered but patient clinically improving breathing comfortably. The patient states that she has had uncontrolled pain r/t her arthritis and purchased [address] and took 1/2 tab yesterday afternoon and a full tab last night. However has told ED staff it was a Lorazepam from a friend because she was anxious. She states she is not a regular illicit drug user and hazel any ongoing cocaine abuse. UTox positive for fentanyl, opiates, cocaine. She states that Tuesday was the one yeat anniversary of her brothers and has felt more depressed as a result but denies any SI/HI. Given IV zosyn and LR. Pt to be admitted for acute hypoxemic respiratory failure following opiate overdose with aspiration pneumonia. Review of Systems Review of Systems: General: +generalized weakness. No fevers, malaise, unintentional weight loss Cardiovascular: +left sided chest pain. No palpitations, or leg edema Respiratory: No shortness of breath, wheezing, cough GI: No abdominal pain, nausea, vomiting, diarrhea, constipation, melena, hematochezia : No dysuria, hematuria, increased urinary frequency MSK: +hip and knee pain Neuro: +headache. No weakness, paresthesias Skin: No rashes or lesions [facility] Medical History (Updated 02/24/22 @ 12:33 by SOFI Slade) Cocaine abuse Depression Fentanyl use disorder, severe Fibromyalgia HTN (hypertension) Hx of chest pain Hyperlipidemia Iron deficiency anemia Osteoarthritis Family History Sister Breast cancer Father Alzheimer disease Mother HTN (hypertension) Brother Respiratory failure Surgical History History of knee surgery History of Ceci-en-Y gastric bypass (~2004) Hx of appendectomy Hx of colonoscopy Hx of esophagogastroduodenoscopy (~02/2018) Status post laparoscopic cholecystectomy Status post tonsillectomy Social History Household Members: None Housing: House Are you a primary director career services to a significant other at home: No Do you presently have visiting nurse or other home services: No Patient Tobacco Use Status: Never used Tobacco Second Hand Smoke Exposure: No Advance Directives: No Advance Directives Information Provided: No service: No Current occupational status: employed Current occupation: daycare provider Meds Allergies Allergy/AdvReac Type Severity Reaction Status Date / Time No Known Allergies Allergy Unverified 06/09/21 09:54 [No Known Allergies*] Active Medications: Current Medications Naloxone HCl 5 mg/ Dextrose 100 mls @ 40 mls/hr IV [facility] Last Admin: 02/24/22 10:39 Dose: Not Given Lactated Ringer's (Lr) 1,000 mls @ 125 mls/hr IV [facility]8H [facility] Stop: 02/24/22 12:56 Last Admin: 02/24/22 10:06 Dose: 125 mls/hr Pharmacy Consult (Consult Rx Perform Med Rec) 1 each MISCELLANE ONCE PRN PRN Reason: Consult order Home Medications Medication Instructions Recorded Confirmed Last Taken Type amlodipine 10 mg tablet 1 tab PO DAILY 06/09/21 02/24/22 Unknown History aspirin 81 mg tablet,delayed 1 tab PO DAILY 06/09/21 02/24/22 Unknown History release carvedilol 3.125 mg tablet 1 tab PO BID 06/09/21 02/24/22 Unknown History docusate sodium 100 mg capsule 2 cap PO DAILY PRN constipation 06/09/21 02/24/22 Unknown History furosemide 20 mg tablet 1 tab PO DAILY 06/09/21 02/24/22 Unknown History isosorbide mononitrate 30 mg 1 tab PO QPM 06/09/21 02/24/22 Unknown History tablet,extended release 24 hr nitroglycerin 0.4 mg sublingual 0.4 mg sublingual Q5M PRN Chest 06/09/21 02/24/22 Unknown History tablet Pain levothyroxine 150 mcg tablet 1 tab PO DAILY@0630 11/16/21 02/24/22 Unknown History buspirone 7.5 mg tablet 1 tab PO TID 02/24/22 02/24/22 Unknown History diclofenac potassium 50 mg tablet 1 tab PO BID PRN moderate pain 02/24/22 02/24/22 Unknown History duloxetine 60 mg capsule,delayed 1 cap PO DAILY 02/24/22 02/24/22 Unknown History release fluoxetine 20 mg capsule 1 cap PO DAILY 02/24/22 02/24/22 Unknown History hydroxyzine pamoate 25 mg capsule 1 cap PO TID PRN Anxiety 02/24/22 02/24/22 Unknown History lidocaine 5 % topical patch 1 patch topical DAILY PRN PAIN 02/24/22 02/24/22 Unknown History (Lidoderm) pantoprazole 20 mg tablet,delayed 20 mg PO BID@0630,1630 02/24/22 02/24/22 Unknown History release sucralfate 1 gram tablet 1 tab PO QID 02/24/22 02/24/22 Unknown History tramadol 50 mg tablet 1 tab PO Q8H PRN pain 02/24/22 02/24/22 Unknown History trazodone 50 mg tablet 1 tab PO BEDTIME PRN insomnia 02/24/22 02/24/22 Unknown History Physical Exam Vital Signs and Narrative: Vital Signs: Last Vital Signs Temp 99.1 F 02/24/22 10:32 Pulse 97 02/24/22 10:32 Resp 18 02/24/22 10:32 BP 95/58 L 02/24/22 10:32 Pulse Ox 96 02/24/22 10:32 O2 Del Method 02/24/22 10:32 O2 Flow Rate 3 02/24/22 10:32 Oxygen Flow Rate 5 02/24/22 06:11 BMI result Body Mass Index 32.8 Constitutional - Awake and lethargic, No apparent distress Eyes - PERRLA, EOMI Cardiovascular - S1S2, RRR, No edema Respiratory - BIlateral lower love rhonchi. Normal lung expansion, Normal respiratory effort, No respiratory distress Gastrointestinal - NT / ND; +BS; No rebound or guarding - rodriguez catheter draining yellow urine Extremities - no calf tenderness bilaterally, no swelling Skin - Warm/Dry Neurological - Alert & oriented x3, CN II-Xii in tact, 5/5 strength BUE and BLE Psychological - depressed mood Results Labs CBC and Chem 7: 02/24/22 07:20 02/24/22 07:20 Labs: Laboratory Results - last 24 hr 02/24/22 02/24/22 02/24/22 06:08 06:58 06:58 MCV MCH MCHC RDW Plt Count MPV Immature Gran % (Auto) Neut % (Auto) Lymph % (Auto) [place] % (Auto) Eos % (Auto) Baso % (Auto) Lymph # (Auto) [place] # (Auto) Eos # (Auto) Baso # (Auto) Abs Immat Gran (auto) Absolute Neuts (auto) Absolute Nucleated RBC Nucleated RBC % (auto) PT INR APTT O2 Saturation ABG pH at Pt Temp ABG pCO2 at Pt Temp ABG pO2 at Pt Temp ABG HCO3 ABG Base Excess (Actual) VBG pH VBG pCO2 VBG pO2 VBG HCO3 VBG O2 Saturation VBG Base Excess Anion Gap Estim Creat Clear Calc Estimated GFR POC Glucose 197 H Random Glucose Lactic Acid 3.2 H* Lactic Acid F/U @ 2Hr Calcium Total Bilirubin AST ALT Alkaline Phosphatase Total Creatine Kinase Troponin I High Sens B-Natriuretic Peptide Total Protein Albumin Lipase Urine Color Urine Appearance Urine pH Ur Specific [place] Urine Protein Urine Glucose (UA) Urine Ketones Urine Blood Urine Nitrite Ur Leukocyte Esterase Urine RBC Urine WBC Ur Squamous Epith Cells Urine Bacteria Hyaline Casts Urine Opiates Screen Urine Fentanyl Screen Ur Barbiturates Screen Ur Phencyclidine Scrn Ur Amphetamines Screen U Benzodiazepines Scrn Urine Cocaine Screen U Marijuana (THC) Screen Ethyl Alcohol COVID-19 (BRISA) Negative COVID-19 Clin Com See Note Influenza Type A (KATARINA) Influenza Type B (KATARINA) Influenza A & B Note 02/24/22 02/24/22 02/24/22 07:20 07:20 07:20 MCV 108.5 H MCH 34.3 H MCHC 31.6 RDW 14.2 Plt Count 357 MPV 9.1 L Immature Gran % (Auto) 0.7 H Neut % (Auto) 86.1 H Lymph % (Auto) 3.3 L [place] % (Auto) 9.5 Eos % (Auto) 0.2 Baso % (Auto) 0.2 Lymph # (Auto) 0.5 L [place] # (Auto) 1.5 H Eos # (Auto) 0.0 Baso # (Auto) 0.0 Abs Immat Gran (auto) 0.11 H Absolute Neuts (auto) 13.2 H Absolute Nucleated RBC 0.000 Nucleated RBC % (auto) 0.0 PT 9.7 L INR 0.9 APTT 25.8 L O2 Saturation ABG pH at Pt Temp ABG pCO2 at Pt Temp ABG pO2 at Pt Temp ABG HCO3 ABG Base Excess (Actual) VBG pH VBG pCO2 VBG pO2 VBG HCO3 VBG O2 Saturation VBG Base Excess Anion Gap 19 Estim Creat Clear Calc 54.1 Estimated GFR 44 POC Glucose Random Glucose 68 Lactic Acid Lactic Acid F/U @ 2Hr Calcium 8.7 Total Bilirubin < 0.2 AST 30 D ALT 24 Alkaline Phosphatase 119 H Total Creatine Kinase 170 H Troponin I High Sens B-Natriuretic Peptide Total Protein 7.0 Albumin 4.6 Lipase 33 Urine Color Urine Appearance Urine pH Ur Specific [place] Urine Protein Urine Glucose (UA) Urine Ketones Urine Blood Urine Nitrite Ur Leukocyte Esterase Urine RBC Urine WBC Ur Squamous Epith Cells Urine Bacteria Hyaline Casts Urine Opiates Screen Urine Fentanyl Screen Ur Barbiturates Screen Ur Phencyclidine Scrn Ur Amphetamines Screen U Benzodiazepines Scrn Urine Cocaine Screen U Marijuana (THC) Screen Ethyl Alcohol COVID-19 (BRISA) COVID-19 Clin Com Influenza Type A (KATARINA) Influenza Type B (KATARINA) Influenza A & B Note 02/24/22 02/24/22 02/24/22 07:21 07:37 08:33 MCV MCH MCHC RDW Plt Count MPV Immature Gran % (Auto) Neut % (Auto) Lymph % (Auto) [place] % (Auto) Eos % (Auto) Baso % (Auto) Lymph # (Auto) [place] # (Auto) Eos # (Auto) Baso # (Auto) Abs Immat Gran (auto) Absolute Neuts (auto) Absolute Nucleated RBC Nucleated RBC % (auto) PT INR APTT O2 Saturation 90.0 ABG pH at Pt Temp 7.32 L ABG pCO2 at Pt Temp 34 ABG pO2 at Pt Temp 68 L ABG HCO3 18 L ABG Base Excess (Actual) -6.8 VBG pH VBG pCO2 VBG pO2 VBG HCO3 VBG O2 Saturation VBG Base Excess Anion Gap Estim Creat Clear Calc Estimated GFR POC Glucose Random Glucose Lactic Acid Lactic Acid F/U @ 2Hr Calcium Total Bilirubin AST ALT Alkaline Phosphatase Total Creatine Kinase Troponin I High Sens B-Natriuretic Peptide Total Protein Albumin Lipase Urine Color Urine Appearance Urine pH Ur Specific [place] Urine Protein Urine Glucose (UA) Urine Ketones Urine Blood Urine Nitrite Ur Leukocyte Esterase Urine RBC Urine WBC Ur Squamous Epith Cells Urine Bacteria Hyaline Casts Urine Opiates Screen Urine Fentanyl Screen Ur Barbiturates Screen Ur Phencyclidine Scrn Ur Amphetamines Screen U Benzodiazepines Scrn Urine Cocaine Screen U Marijuana (THC) Screen Ethyl Alcohol < 10 COVID-19 (BRISA) COVID-19 Clin Com Influenza Type A (KATARINA) Negative Influenza Type B (KATARINA) Negative Influenza A & B Note See Note 02/24/22 02/24/22 02/24/22 08:42 08:42 08:42 MCV MCH MCHC RDW Plt Count MPV Immature Gran % (Auto) Neut % (Auto) Lymph % (Auto) [place] % (Auto) Eos % (Auto) Baso % (Auto) Lymph # (Auto) [place] # (Auto) Eos # (Auto) Baso # (Auto) Abs Immat Gran (auto) Absolute Neuts (auto) Absolute Nucleated RBC Nucleated RBC % (auto) PT INR APTT O2 Saturation ABG pH at Pt Temp ABG pCO2 at Pt Temp ABG pO2 at Pt Temp ABG HCO3 ABG Base Excess (Actual) VBG pH VBG pCO2 VBG pO2 VBG HCO3 VBG O2 Saturation VBG Base Excess Anion Gap Estim Creat Clear Calc Estimated GFR POC Glucose Random Glucose Lactic Acid Lactic Acid F/U @ 2Hr Calcium Total Bilirubin AST ALT Alkaline Phosphatase Total Creatine Kinase Troponin I High Sens 12.9 B-Natriuretic Peptide 35 Total Protein Albumin Lipase Urine Color Yellow Urine Appearance Clear Urine pH 5.5 Ur Specific [place] 1.020 Urine Protein 30 (1+) H Urine Glucose (UA) Negative Urine Ketones 15 Urine Blood Negative Urine Nitrite Negative Ur Leukocyte Esterase Negative Urine RBC 0-2 Urine WBC 0-5 Ur Squamous Epith Cells 3-5 Urine Bacteria None Seen Hyaline Casts 6-10 Urine Opiates Screen POSITIVE H Urine Fentanyl Screen POSITIVE H Ur Barbiturates Screen Not Detected Ur Phencyclidine Scrn Not Detected Ur Amphetamines Screen Not Detected U Benzodiazepines Scrn Not Detected Urine Cocaine Screen POSITIVE H U Marijuana (THC) Screen Not Detected Ethyl Alcohol COVID-19 (BRISA) COVID-19 Clin Com Influenza Type A (KATARINA) Influenza Type B (KATARINA) Influenza A & B Note 02/24/22 02/24/22 02/24/22 09:51 11:16 11:19 MCV MCH MCHC RDW Plt Count MPV Immature Gran % (Auto) Neut % (Auto) Lymph % (Auto) [place] % (Auto) Eos % (Auto) Baso % (Auto) Lymph # (Auto) [place] # (Auto) Eos # (Auto) Baso # (Auto) Abs Immat Gran (auto) Absolute Neuts (auto) Absolute Nucleated RBC Nucleated RBC % (auto) PT INR APTT O2 Saturation ABG pH at Pt Temp ABG pCO2 at Pt Temp ABG pO2 at Pt Temp ABG HCO3 ABG Base Excess (Actual) VBG pH 7.30 L VBG pCO2 33 VBG pO2 94 VBG HCO3 16 L VBG O2 Saturation 95.0 VBG Base Excess -8.4 Anion Gap Estim Creat Clear Calc Estimated GFR POC Glucose Random Glucose Lactic Acid 0.5 Lactic Acid F/U @ 2Hr 0.5 Calcium Total Bilirubin AST ALT Alkaline Phosphatase Total Creatine Kinase Troponin I High Sens B-Natriuretic Peptide Total Protein Albumin Lipase Urine Color Urine Appearance Urine pH Ur Specific [place] Urine Protein Urine Glucose (UA) Urine Ketones Urine Blood Urine Nitrite Ur Leukocyte Esterase Urine RBC Urine WBC Ur Squamous Epith Cells Urine Bacteria Hyaline Casts Urine Opiates Screen Urine Fentanyl Screen Ur Barbiturates Screen Ur Phencyclidine Scrn Ur Amphetamines Screen U Benzodiazepines Scrn Urine Cocaine Screen U Marijuana (THC) Screen Ethyl Alcohol COVID-19 (BRISA) COVID-19 Clin Com Influenza Type A (KATARINA) Influenza Type B (KATARINA) Influenza A & B Note Imaging Radiologist's Impressions: Impressions Chest X-Ray 02/24/22 06:40 IMPRESSION: Heterogeneous opacities in the suprahilar regions bilaterally, which could reflect pneumonia versus aspiration in the proper clinical setting. Assessment and Plan (1) Acute hypoxemic respiratory failure: Status: Acute (2) Opiate overdose: Status: Acute (3) Aspiration pneumonia: Status: Acute (4) Pulmonary edema: Status: Acute Plan 51 year old female with history of hsitory polysubstance abuse including cocaine, depression, hypertension, hyperlipidemia, chest pain with negative cardiac cath, iron deficiency anemia, h/o gastric bypass, and osteoarthritis admitted to the hospital for an accidental opiate overdose with acute hypoxemic respiratory failure and aspiration pneumonia. #Acute hypoxemic respiratory failure secondary to opiate overdose -Required 6mg narcan total with improvement in breathing though still somewhat lethargic -Mixed metabolic acidosis. See below -Evaluated by identity access management architect. Not felt to require higher level of care -Continue supplemental O2 -Admit to telemetry. #Opiate overdose -Reports purchasing [address] and took 1/2 tab yesterday afternoon and 1 tab yesterday evening -Denies recurrent use -Tox screen positive for fentanyl, opiates, cocaine -Received 6mg total narcan -Addiction consult placed #Acute aspiration pneumonia vs pulmonary edema -Per identity access management architect, possible noncardiogrenic pulmonary edema which should resolve spontaneously -IV unasyn to cover for aspiration pneumonia -No severe sepsis. Hypothermia, tachycardia, tachypnea, elevated lactic acid secondary to circulatory compromise from combination of drugs #Mixed metabolic acidosis -ABG with pH 7.32, HCO3 18, pO2 68 -Reflects circulatory inadequacy following combination of drugs ingested per UTox screen. Not severe sepsis -Clinically appears to be compensating -Follow VBG #History cocaine abuse -Denies recent use -Addiction consult #Depression- not well controlled -Care team consult -Denies SI/HI -Overdose was unintentional -Continue home meds #Htn-bp soft -Hold home meds at this time #HLD -continue statin #Chest pain -Reporting atypical left-sided chest pain, similar to prior episodes -EKG mildly prolonged QTC 496 with Sinus tachycardia, rate 106, no st/t wave abnormalities -Troponin negative -Bedside echo normal #BETZAIDA -continue ferrous sulfate -Fibromyalgia/chronic pain -Hold tramadol at this time d/t overdose -Continue nsaids and lidocaine patch DVT prophylaxis- lovenox Full code Pt requires inpt stay at least 2 midnights due to acute hypoxemic respiratory failure following opiate overdose requiring supplemental O2 and close monitoring to prevent further cardiopulmonary decompensation. Quality Stroke Does the patient have a stroke diagnosis?: No VTE Prior VTE?: No VTE Risk Level:: Medical - moderate - high VTE Device Contraindication: Treatment Not Indicated VTE Drug Contraindication: N/A - Med Ordered
[2022-02-24] MEDS: Ampicillin Sodium/Sulbactam Na 3 GM in 0.9 % Sodium Chloride 100 ML IV ×2 (13:31→20:27)
[2022-02-24] MEDS: Enoxaparin Sodium 40 MG/0.4 ML SYRINGE SUBCUT (13:32)
[2022-02-24] MEDS: busPIRone HCl 5 MG TABLET 7.5 MG PO ×2 (13:32→21:21)
[2022-02-24] MEDS: Acetaminophen 325 MG TABLET 650 MG PO (13:34)
[2022-02-24] MEDS: Sucralfate 1 GM TABLET PO ×3 (13:34→20:27)
[2022-02-24] MEDS: 0.9 % Sodium Chloride Flush 3 ML SYRINGE IVFLUSH ×2 (17:17→20:29)
--- NOTE | 2022-02-24 17:18 | HO.ADDICT_ITS ---
History of Present Illness Date of Service: 02/24/2022 Chief Complaint: opiate OD, respiratory failure, aspiration pneumon Reason for Consult: opioid overdose HPI Narrative: Patient is a Croatian speaking female currently medically admitted after presenting to ED via EMS following opioid overdose. Patient seen in room 4 of ED while she is awaiting transfer to medical floor. Patient awake, engaged in interview. Reporting that she does not usually use illicit opioids however, she was having worsening pain and had asked a fried to buy her percocet. She took two pills PO (now known to be pressed pills) and she woke up here . She initially denied any previous use, then stated that she had used yesterday. She denies any history of withdrawal sx, including anxiety, restlessness, chills, nausea. Review of Systems Constitutional: Reports as per HPI and Reports no additional constitutional complaints Diagnostics Vital Signs (24Hr): Vital Signs - 24 hr 02/24/22 06:11 02/24/22 08:47 02/24/22 10:32 Temperature 95.9 F L 99.1 F 99.1 F Pulse Rate 108 H 95 97 Respiratory Rate 28 H 19 18 Blood Pressure 115/76 97/59 L 95/58 L Pulse Oximetry 100 95 96 Oxygen Delivery Method Nasal Cannula Oxymask Oxymask Oxygen Flow Rate 7 3 02/24/22 12:26 02/24/22 14:07 02/24/22 14:23 Temperature 99.0 F 98.7 F Pulse Rate 93 83 Respiratory Rate 20 15 Blood Pressure 98/60 105/59 L Pulse Oximetry 98 94 94 Oxygen Delivery Method Oxymask Oxymask Room Air Oxygen Flow Rate 3 3 BMI result Body Mass Index 32.8 Labs Results: 02/25/22 05:54 02/25/22 05:54 Labs: Laboratory Results - last 48 hr 02/24/22 02/24/22 02/24/22 06:08 06:58 06:58 WBC RBC Hgb Hct MCV MCH MCHC RDW Plt Count MPV Immature Gran % (Auto) Neut % (Auto) Lymph % (Auto) [place] % (Auto) Eos % (Auto) Baso % (Auto) Lymph # (Auto) [place] # (Auto) Eos # (Auto) Baso # (Auto) Abs Immat Gran (auto) Absolute Neuts (auto) Absolute Nucleated RBC Nucleated RBC % (auto) PT INR APTT O2 Saturation ABG pH at Pt Temp ABG pCO2 at Pt Temp ABG pO2 at Pt Temp ABG HCO3 ABG Base Excess (Actual) VBG pH VBG pCO2 VBG pO2 VBG HCO3 VBG O2 Saturation VBG Base Excess Sodium Potassium Chloride Carbon Dioxide Anion Gap BUN Creatinine Estim Creat Clear Calc Estimated GFR POC Glucose 197 H Random Glucose Lactic Acid 3.2 H* Lactic Acid F/U @ 2Hr Calcium Total Bilirubin AST ALT Alkaline Phosphatase Total Creatine Kinase Troponin I High Sens B-Natriuretic Peptide Total Protein Albumin Lipase Urine Color Urine Appearance Urine pH Ur Specific [place] Urine Protein Urine Glucose (UA) Urine Ketones Urine Blood Urine Nitrite Ur Leukocyte Esterase Urine RBC Urine WBC Ur Squamous Epith Cells Urine Bacteria Hyaline Casts Urine Opiates Screen Urine Fentanyl Screen Ur Barbiturates Screen Ur Phencyclidine Scrn Ur Amphetamines Screen U Benzodiazepines Scrn Urine Cocaine Screen U Marijuana (THC) Screen Ethyl Alcohol COVID-19 (BRISA) Negative COVID-19 Clin Com See Note Influenza Type A (KATARINA) Influenza Type B (KATARINA) Influenza A & B Note 02/24/22 02/24/22 02/24/22 07:20 07:20 07:20 WBC 15.3 H RBC 3.41 L Hgb 11.7 L Hct 37.0 MCV 108.5 H MCH 34.3 H MCHC 31.6 RDW 14.2 Plt Count 357 MPV 9.1 L Immature Gran % (Auto) 0.7 H Neut % (Auto) 86.1 H Lymph % (Auto) 3.3 L [place] % (Auto) 9.5 Eos % (Auto) 0.2 Baso % (Auto) 0.2 Lymph # (Auto) 0.5 L [place] # (Auto) 1.5 H Eos # (Auto) 0.0 Baso # (Auto) 0.0 Abs Immat Gran (auto) 0.11 H Absolute Neuts (auto) 13.2 H Absolute Nucleated RBC 0.000 Nucleated RBC % (auto) 0.0 PT 9.7 L INR 0.9 APTT 25.8 L O2 Saturation ABG pH at Pt Temp ABG pCO2 at Pt Temp ABG pO2 at Pt Temp ABG HCO3 ABG Base Excess (Actual) VBG pH VBG pCO2 VBG pO2 VBG HCO3 VBG O2 Saturation VBG Base Excess Sodium 138 Potassium 4.2 Chloride 104 Carbon Dioxide 19 L Anion Gap 19 BUN 32 H Creatinine 1.29 Estim Creat Clear Calc 54.1 Estimated GFR 44 POC Glucose Random Glucose 68 Lactic Acid Lactic Acid F/U @ 2Hr Calcium 8.7 Total Bilirubin < 0.2 AST 30 D ALT 24 Alkaline Phosphatase 119 H Total Creatine Kinase 170 H Troponin I High Sens B-Natriuretic Peptide Total Protein 7.0 Albumin 4.6 Lipase 33 Urine Color Urine Appearance Urine pH Ur Specific [place] Urine Protein Urine Glucose (UA) Urine Ketones Urine Blood Urine Nitrite Ur Leukocyte Esterase Urine RBC Urine WBC Ur Squamous Epith Cells Urine Bacteria Hyaline Casts Urine Opiates Screen Urine Fentanyl Screen Ur Barbiturates Screen Ur Phencyclidine Scrn Ur Amphetamines Screen U Benzodiazepines Scrn Urine Cocaine Screen U Marijuana (THC) Screen Ethyl Alcohol COVID-19 (BRISA) COVID-19 Clin Com Influenza Type A (KATARINA) Influenza Type B (KATARINA) Influenza A & B Note 02/24/22 02/24/22 02/24/22 07:21 07:37 08:33 WBC RBC Hgb Hct MCV MCH MCHC RDW Plt Count MPV Immature Gran % (Auto) Neut % (Auto) Lymph % (Auto) [place] % (Auto) Eos % (Auto) Baso % (Auto) Lymph # (Auto) [place] # (Auto) Eos # (Auto) Baso # (Auto) Abs Immat Gran (auto) Absolute Neuts (auto) Absolute Nucleated RBC Nucleated RBC % (auto) PT INR APTT O2 Saturation 90.0 ABG pH at Pt Temp 7.32 L ABG pCO2 at Pt Temp 34 ABG pO2 at Pt Temp 68 L ABG HCO3 18 L ABG Base Excess (Actual) -6.8 VBG pH VBG pCO2 VBG pO2 VBG HCO3 VBG O2 Saturation VBG Base Excess Sodium Potassium Chloride Carbon Dioxide Anion Gap BUN Creatinine Estim Creat Clear Calc Estimated GFR POC Glucose Random Glucose Lactic Acid Lactic Acid F/U @ 2Hr Calcium Total Bilirubin AST ALT Alkaline Phosphatase Total Creatine Kinase Troponin I High Sens B-Natriuretic Peptide Total Protein Albumin Lipase Urine Color Urine Appearance Urine pH Ur Specific [place] Urine Protein Urine Glucose (UA) Urine Ketones Urine Blood Urine Nitrite Ur Leukocyte Esterase Urine RBC Urine WBC Ur Squamous Epith Cells Urine Bacteria Hyaline Casts Urine Opiates Screen Urine Fentanyl Screen Ur Barbiturates Screen Ur Phencyclidine Scrn Ur Amphetamines Screen U Benzodiazepines Scrn Urine Cocaine Screen U Marijuana (THC) Screen Ethyl Alcohol < 10 COVID-19 (BRISA) COVID-19 Clin Com Influenza Type A (KATARINA) Negative Influenza Type B (KATARINA) Negative Influenza A & B Note See Note 02/24/22 02/24/22 02/24/22 08:42 08:42 08:42 WBC RBC Hgb Hct MCV MCH MCHC RDW Plt Count MPV Immature Gran % (Auto) Neut % (Auto) Lymph % (Auto) [place] % (Auto) Eos % (Auto) Baso % (Auto) Lymph # (Auto) [place] # (Auto) Eos # (Auto) Baso # (Auto) Abs Immat Gran (auto) Absolute Neuts (auto) Absolute Nucleated RBC Nucleated RBC % (auto) PT INR APTT O2 Saturation ABG pH at Pt Temp ABG pCO2 at Pt Temp ABG pO2 at Pt Temp ABG HCO3 ABG Base Excess (Actual) VBG pH VBG pCO2 VBG pO2 VBG HCO3 VBG O2 Saturation VBG Base Excess Sodium Potassium Chloride Carbon Dioxide Anion Gap BUN Creatinine Estim Creat Clear Calc Estimated GFR POC Glucose Random Glucose Lactic Acid Lactic Acid F/U @ 2Hr Calcium Total Bilirubin AST ALT Alkaline Phosphatase Total Creatine Kinase Troponin I High Sens 12.9 B-Natriuretic Peptide 35 Total Protein Albumin Lipase Urine Color Yellow Urine Appearance Clear Urine pH 5.5 Ur Specific [place] 1.020 Urine Protein 30 (1+) H Urine Glucose (UA) Negative Urine Ketones 15 Urine Blood Negative Urine Nitrite Negative Ur Leukocyte Esterase Negative Urine RBC 0-2 Urine WBC 0-5 Ur Squamous Epith Cells 3-5 Urine Bacteria None Seen Hyaline Casts 6-10 Urine Opiates Screen POSITIVE H Urine Fentanyl Screen POSITIVE H Ur Barbiturates Screen Not Detected Ur Phencyclidine Scrn Not Detected Ur Amphetamines Screen Not Detected U Benzodiazepines Scrn Not Detected Urine Cocaine Screen POSITIVE H U Marijuana (THC) Screen Not Detected Ethyl Alcohol COVID-19 (BRISA) COVID-19 Clin Com Influenza Type A (KATARINA) Influenza Type B (KATARINA) Influenza A & B Note 02/24/22 02/24/22 02/24/22 09:51 11:16 11:19 WBC RBC Hgb Hct MCV MCH MCHC RDW Plt Count MPV Immature Gran % (Auto) Neut % (Auto) Lymph % (Auto) [place] % (Auto) Eos % (Auto) Baso % (Auto) Lymph # (Auto) [place] # (Auto) Eos # (Auto) Baso # (Auto) Abs Immat Gran (auto) Absolute Neuts (auto) Absolute Nucleated RBC Nucleated RBC % (auto) PT INR APTT O2 Saturation ABG pH at Pt Temp ABG pCO2 at Pt Temp ABG pO2 at Pt Temp ABG HCO3 ABG Base Excess (Actual) VBG pH 7.30 L VBG pCO2 33 VBG pO2 94 VBG HCO3 16 L VBG O2 Saturation 95.0 VBG Base Excess -8.4 Sodium Potassium Chloride Carbon Dioxide Anion Gap BUN Creatinine Estim Creat Clear Calc Estimated GFR POC Glucose Random Glucose Lactic Acid 0.5 Lactic Acid F/U @ 2Hr 0.5 Calcium Total Bilirubin AST ALT Alkaline Phosphatase Total Creatine Kinase Troponin I High Sens B-Natriuretic Peptide Total Protein Albumin Lipase Urine Color Urine Appearance Urine pH Ur Specific [place] Urine Protein Urine Glucose (UA) Urine Ketones Urine Blood Urine Nitrite Ur Leukocyte Esterase Urine RBC Urine WBC Ur Squamous Epith Cells Urine Bacteria Hyaline Casts Urine Opiates Screen Urine Fentanyl Screen Ur Barbiturates Screen Ur Phencyclidine Scrn Ur Amphetamines Screen U Benzodiazepines Scrn Urine Cocaine Screen U Marijuana (THC) Screen Ethyl Alcohol COVID-19 (BRISA) COVID-19 Clin Com Influenza Type A (KATARINA) Influenza Type B (KATARINA) Influenza A & B Note Imaging Radiology Impressions: ITS Impressions Chest X-Ray 02/24/22 06:40 IMPRESSION: Heterogeneous opacities in the suprahilar regions bilaterally, which could reflect pneumonia versus aspiration in the proper clinical setting. Mental Status Exam Mental Status Exam Patient Appearance: Appropriate (NC, somewhat drowsy) Mood Description: Calm Affect Description: Calm Speech Pattern: Clear Judgement: Fair Medications Medications Current Medications Acetaminophen (Acetaminophen 325 Mg Tablet) 650 mg PO Q6H PRN PRN Reason: Pain, Mild, headache Last Admin: 02/24/22 13:34 Dose: 650 mg Aspirin (Aspirin Enteric Coated 81 Mg Tablet.) 81 mg PO DAILY [facility] Buspirone HCl (Buspirone Hcl 5 Mg Tablet) 7.5 mg PO TID SHIRA Last Admin: 02/24/22 13:32 Dose: 7.5 mg Diclofenac Sodium (Diclofenac Sodium Delayed Rel 50 Mg Tablet.) 50 mg PO BID PRN PRN Reason: Pain, Moderate (Pain Scale 4-6 Docusate Sodium (Docusate Sodium 100 Mg Capsule) 100 mg PO DAILY PRN PRN Reason: Constipation Duloxetine HCl (Duloxetine Hcl 60 Mg Capsule.) 60 mg PO DAILY [facility] Enoxaparin Sodium (Enoxaparin Sodium 40 Mg/0.4 Ml Syringe) 40 mg SUBCUT Q24H [facility] [place] Last Admin: 02/24/22 13:32 Dose: 40 mg Fluoxetine HCl (Fluoxetine Hcl 20 Mg Capsule) 20 mg PO DAILY [facility] [place] Hydroxyzine HCl (Hydroxyzine Hcl 25 Mg Tablet) 25 mg PO TID PRN PRN Reason: Anxiety Ampicillin Sodium/Sulbactam (Sodium 3 gm/ Sodium Chloride) 100 mls @ 200 mls/hr IV Q6H [facility] Stop: 02/28/22 01:29 EST Last Infusion: 02/24/22 17:13 Dose: Infused Levothyroxine Sodium (Levothyroxine Sodium 150 Mcg Tablet) 150 mcg PO DAILY@0600 [facility] Lidocaine (Lidocaine 4 % Patch Adh..Patch) 1 patch TRANSDERMA DAILY PRN PRN Reason: PAIN Omeprazole (Omeprazole 20 Mg Capsule.) 20 mg PO BID@0630,1630 [facility] Ondansetron HCl (Ondansetron Hcl 4 Mg/2 Ml Vial) 4 mg IVPUSH Q8H PRN PRN Reason: Nausea and Vomiting Pharmacy Consult (Consult Rx Perform Med Rec) 1 each MISCELLANE ONCE PRN PRN Reason: Consult order Polyethylene Glycol (Polyethylene Glycol 3350 17 Gm Powd.Pack) 17 gm PO DAILY [facility] Sodium Chloride (0.9 % Sodium Chloride Flush 3 Ml Syringe) 3 ml IVFLUSH QSHIFT [facility] [place] Last Admin: 02/24/22 17:17 Dose: 3 ml Sucralfate (Sucralfate 1 Gm Tablet) 1 gm PO QID [facility] [place] Last Admin: 02/24/22 13:34 Dose: 1 gm Trazodone HCl (Trazodone Hcl 50 Mg Tablet) 50 mg PO BEDTIME PRN PRN Reason: insomnia Allergies Allergies Allergy/AdvReac Type Severity Reaction Status Date / Time No Known Allergies Allergy Unverified 06/09/21 09:54 [No Known Allergies*] Assessment & Plan Assessment & Plan (1) Opiate overdose: Status: Inactive Code(s): T40.601A - Poisoning by unspecified narcotics, accidental (unintentional), initial encounter Assessment and Plan: * will follow up in AM * interested in overdose prevention education I spent __25____ minutes with the patient and/or on the patient floor today, greater than?50% of which was spent counseling/coordinating care. [facility] Past Medical History Medical History (Updated 03/05/22 @ 00:03 by Bambi Villa) Acid reflux Cocaine abuse COVID-19 virus infection Depression Fentanyl use disorder, severe Fibromyalgia HTN (hypertension) Hx of chest pain Hyperlipidemia Iron deficiency anemia Opiate overdose Osteoarthritis Family History Family History Sister Breast cancer Father Alzheimer disease Mother HTN (hypertension) Brother Respiratory failure Surgical History Surgical History History of knee surgery History of Ceci-en-Y gastric bypass (~2004) Hx of appendectomy Hx of colonoscopy Hx of esophagogastroduodenoscopy (~02/2018) Status post laparoscopic cholecystectomy Status post tonsillectomy Social History Social History Household Members: Family Housing: House Are you a primary child care sitter to a significant other at home: No Do you presently have visiting nurse or other home services: No Patient Tobacco Use Status: Never used Tobacco Second Hand Smoke Exposure: No service: No Current occupational status: employed Current occupation: daycare provider
[2022-02-24] MEDS: Omeprazole 20 MG CAPSULE.DR PO (17:32)
[2022-02-24] MEDS: Ketorolac Tromethamine 15 MG/ML VIAL IVPUSH (21:18)
[2022-02-25] MEDS: Ampicillin Sodium/Sulbactam Na 3 GM in 0.9 % Sodium Chloride 100 ML IV ×2 (01:54→05:54)
[2022-02-25] MEDS: Acetaminophen 325 MG TABLET 650 MG PO ×2 (02:10→09:16)
[2022-02-25 03:19] VITALS: BP 115/72; PULSE 78; RESP 14; TEMP 36.7; O2SAT 93
[2022-02-25] MEDS: Omeprazole 20 MG CAPSULE.DR PO (05:54)
[2022-02-25] MEDS: Levothyroxine Sodium 150 MCG TABLET PO (05:54)
[2022-02-25 06:42] LABS: MANUAL DIFF FLAG NO
[2022-02-25 06:47] LABS: Basophils Percent Auto 0.3 % (0-2); Eosinophils Absolute Auto 0.1 X10*3/uL (0.0-0.4); Hematocrit 26.8 % (37.0-47.0); Hemoglobin 8.7 g/dl (12.0-16.0); Imm Gran Abs Auto 0.05 X10*3/uL (0.00-0.03); Imm Gran Pct Auto 0.6 % (0.0-0.4); Lymphocytes Absolute Auto 1.5 X10*3/uL (1.2-4.9); Lymphocytes Percent Auto 17.7 % (20-40); Mean Corpuscular HGB Conc 32.5 g/dl (31.0-35.0); Mean Corpuscular Hemoglobin 34.5 pg (27.0-33.0); Mean Corpuscular Volume 106.3 fL (80.0-98.0); Mean Platelet Volume 9.4 fL (9.4-12.3); Monocytes Absolute Auto 0.7 X10*3/uL (0.1-1.2); Monocytes Percent Auto 8.5 % (2-11); Neutrophils Absolute Auto 6.2 x10*3/uL (2.0-8.3); Neutrophils Percent Auto 71.9 % (45-73); Platelet Count 259 X10*3/uL (160-400); Red Blood Count 2.52 X10*6/uL (4.20-5.50); Red Cell Distribution Width 14.6 % (11.0-16.0); White Blood Count 8.6 X10*3/uL (4.8-10.8)
[2022-02-25 07:12] LABS: Anion Gap 13 (12-20); Blood Urea Nitrogen 11 mg/dL (9-16); Carbon Dioxide 24 mmol/L (22-29); Chloride 109 mmol/L (96-108); Creatinine Clr Calc Pharmacy 131.8; Estimated Glomerular Filt Rate > 60; Glucose Random 94 mg/dL (60-115); Potassium 4.2 mmol/L (3.3-5.1); Sodium 142 mmol/L (135-145)
[2022-02-25 07:28] VITALS: BP 113/75; PULSE 89; RESP 20; TEMP 36.4; O2SAT 95
--- NOTE | 2022-02-25 08:35 | MHC.CM.PN ---
CM met with Patient at bedside. Patient lives in an apartment with her Brother and her and she is functionally independent and working. Home self care vs Care Team intervention r/t Polysubstance Abuse & Opiate Overdose is the tentative dc plan and CM has initiated and will follow for dc planning. Patient has received Covid/Moderna vax X2 and her PCP is from [facility].
[2022-02-25] MEDS: 0.9 % Sodium Chloride Flush 3 ML SYRINGE IVFLUSH (09:05)
[2022-02-25] MEDS: busPIRone HCl 5 MG TABLET 7.5 MG PO (09:05)
[2022-02-25] MEDS: Aspirin Enteric Coated 81 MG TABLET.DR PO (09:06)
[2022-02-25] MEDS: DULoxetine HCl 60 MG CAPSULE.DR PO (09:06)
[2022-02-25] MEDS: FLUoxetine HCl 20 MG CAPSULE PO (09:06)
[2022-02-25] MEDS: Sucralfate 1 GM TABLET PO ×2 (09:06→13:39)
--- NOTE | 2022-02-25 10:01 | P.DS_ITS ---
DS: Providers Provider Date of Service: 02/25/22 Date of admission: 02/24/22 12:42 Primary care physician: [facility] Consults: 02/24/22 12:43 Addiction Medicine Routine Consulting Provider: Addiction Covering Reason for consultation: opiate overdose, polysubstance use Consult to Care Team Routine Comment: Reason for consultation: depression (anniversay brother ), substance use DS: Diagnosis Discharge Diagnosis (1) Opiate overdose: Status: Acute (2) Aspiration pneumonia: Status: Acute DS: Summary Hospital Course Hospital Course: HPI: 51 year old female with history of history polysubstance abuse including cocaine, depression, hypertension, hyperlipidemia, chest pain with negative cardiac cath, iron deficiency anemia, h/o gastric bypass, and osteoarthritis presented to the ED this am via EMS after being found unresponsive, unarousable, by her family. According to paramedics, the police were on the scene 1st in were assisting the patient's respirations with a bag-valve mask.? Paramedics noted pinpoint pupils and the patient was given Narcan with little effect.? However the patient did open her eyes but was nonverbal.? In the emergency department initially oriented to self only but lethargic.? She was given Narcan 2 mg IV in became awake and more responsive. Patient has two subsequent episodes of lethargy requiring IV narcan.? Pt has WBC 15,000, chronic stable anemia. Renal function baseline. Electrolytes nrmal except for CO2 19. VBG with pH 7.30, HCO3 16. ABG pH 7.32, HCO3 18, pO2 68. Place on xymask at 3L. Lactic acid initially elevated 3.2, improved to 0.5. Temp on arrival 95.9, placed under bear hugger improved to 99.0. Initially tachy to 108 with RR 28. EKG showed prolonged QTc. Vertical Roll Operator advised rodriguez catheter which was placed. CXR showed bilateral aspiration pneumonia va pulmonary edema. Bedside echo performed showing normal systolic LV function, no valvular or pericardial disease. Case discussed with Dr. Ramirez in intensive care. narcan drip initially considered but patient clinically improving breathing comfortably. The patient states that she has had uncontrolled pain r/t her arthritis and purchased [address] and took 1/2 tab yesterday afternoon and a full tab last night. However has told ED staff it was a Lorazepam from a friend because she was anxious.? She states she is not a regular illicit drug user and hazel any ongoing cocaine abuse. UTox positive for fentanyl, opiates, cocaine. She states that Tuesday was the one yeat anniversary of her brothers and has felt more depressed as a result but denies any SI/HI. Given IV zosyn and LR. Pt to be admitted for acute hypoxemic respiratory failure following opiate overdose with aspiration pneumonia. Hospital course: Patient was admitted and initiated on empiric antibiotics for aspiration pneumonia. Oxygen was weaned down and patient was maintaining normal oxygen saturation on room air prior to discharge. The patient is stable to be discharged with p.o. antibiotics to complete antibiotic course. Addiction team consulted and saw the patient during hospital course Status at Discharge Functional status at discharge: independent ambulation Overall status at discharge: patient is back to baseline Time Spent with Patient Time attestation: Total time spent providing and/or coordinating discharge services: Discharge coordination time: Less than 30 minutes Quality: Safe Use of Opioids Does Pt have an Active Cancer Diagnosis on the Problem List?: No Quality: Stroke Does the patient have a stroke diagnosis?: No Physical Exam Vital Signs: Vital Signs: Last Vital Signs Temp 97.6 F 02/25/22 07:28 Pulse 89 02/25/22 07:28 Resp 20 02/25/22 07:28 BP 113/75 02/25/22 07:28 Pulse Ox 95 02/25/22 07:28 O2 Del Method 02/25/22 07:28 O2 Flow Rate 3 02/24/22 14:07 Oxygen Flow Rate 5 02/24/22 06:11 BMI result Body Mass Index 32.8 Middle-aged female lying in bed in no distress Neck supple, no JVD Regular rate and rhythm, S1-S2 heard Regular breath sounds bilaterally, no wheezing or crackles appreciated Abdomen soft nontender, no guarding, no rigidity Patient is awake, alert and oriented to self, place, time and person ; no focal motor deficit Psych: Normal mood No pedal edema DS: Data Data Completed and Pending Labs on day of discharge: Laboratory Results - last 24 hr 02/24/22 02/24/22 02/24/22 09:51 11:16 11:19 WBC RBC Hgb Hct MCV MCH MCHC RDW Plt Count MPV Immature Gran % (Auto) Neut % (Auto) Lymph % (Auto) [place] % (Auto) Eos % (Auto) Baso % (Auto) Lymph # (Auto) [place] # (Auto) Eos # (Auto) Baso # (Auto) Abs Immat Gran (auto) Absolute Neuts (auto) Absolute Nucleated RBC Nucleated RBC % (auto) VBG pH 7.30 L VBG pCO2 33 VBG pO2 94 VBG HCO3 16 L VBG O2 Saturation 95.0 VBG Base Excess -8.4 Sodium Potassium Chloride Carbon Dioxide Anion Gap BUN Creatinine Estim Creat Clear Calc Estimated GFR Random Glucose Lactic Acid 0.5 Lactic Acid F/U @ 2Hr 0.5 Calcium 02/25/22 02/25/22 05:54 05:54 WBC 8.6 RBC 2.52 L D Hgb 8.7 L D Hct 26.8 L D MCV 106.3 H MCH 34.5 H MCHC 32.5 RDW 14.6 Plt Count 259 D MPV 9.4 Immature Gran % (Auto) 0.6 H Neut % (Auto) 71.9 Lymph % (Auto) 17.7 L [place] % (Auto) 8.5 Eos % (Auto) 1.0 Baso % (Auto) 0.3 Lymph # (Auto) 1.5 [place] # (Auto) 0.7 Eos # (Auto) 0.1 Baso # (Auto) 0.0 Abs Immat Gran (auto) 0.05 H Absolute Neuts (auto) 6.2 Absolute Nucleated RBC 0.000 Nucleated RBC % (auto) 0.0 VBG pH VBG pCO2 VBG pO2 VBG HCO3 VBG O2 Saturation VBG Base Excess Sodium 142 Potassium 4.2 Chloride 109 H Carbon Dioxide 24 Anion Gap 13 BUN 11 D Creatinine 0.53 Estim Creat Clear Calc 131.8 Estimated GFR > 60 Random Glucose 94 Lactic Acid Lactic Acid F/U @ 2Hr Calcium 8.0 L D Preliminary micro results at discharge 02/24/22 07:37 Blood Culture - Preliminary Blood - Venous No growth after 24 hours. 02/24/22 07:21 Blood Culture - Preliminary Blood - Venous No growth after 24 hours. Imaging Chest x-ray: Radiologist's impression: ITS Impressions Chest X-Ray 02/24/22 06:40 IMPRESSION: Heterogeneous opacities in the suprahilar regions bilaterally, which could reflect pneumonia versus aspiration in the proper clinical setting. Discharge Plan Discharge Anticipated Discharge Date/Time: 02/25/22 11:08 Patient Disposition: Home, Self-Care Discharge Diagnosis: Aspiration PNA in the setting of opioid use disorder Referrals: [facility] [Primary Care Provider] - 1 Week Discharge Medications: New amoxicillin-pot clavulanate [Augmentin] 500-125 mg tablet 1 tab PO Q12H Qty: 8 0RF Continued levothyroxine 150 mcg tablet 1 tab PO DAILY@0630 trazodone 50 mg tablet 1 tab PO BEDTIME PRN (Reason: insomnia) tramadol 50 mg tablet 1 tab PO Q8H PRN (Reason: pain) lidocaine [Lidoderm] 5 % adhesive patch,medicated 1 patch topical DAILY PRN (Reason: PAIN) diclofenac potassium 50 mg tablet 1 tab PO BID PRN (Reason: moderate pain) buspirone 7.5 mg tablet 1 tab PO TID fluoxetine 20 mg capsule 1 cap PO DAILY hydroxyzine pamoate 25 mg capsule 1 cap PO TID PRN (Reason: Anxiety) duloxetine 60 mg capsule,delayed release(DR/EC) 1 cap PO DAILY sucralfate 1 gram tablet 1 tab PO QID pantoprazole 20 mg tablet,delayed release (DR/EC) 20 mg PO BID@0630,1630 isosorbide mononitrate 30 mg tablet extended release 24 hr 1 tab PO QPM aspirin 81 mg tablet,delayed release (DR/EC) 1 tab PO DAILY carvedilol 3.125 mg tablet 1 tab PO BID amlodipine 10 mg tablet 1 tab PO DAILY nitroglycerin 0.4 mg tablet, sublingual 0.4 mg sublingual Q5M PRN (Reason: Chest Pain) docusate sodium 100 mg capsule 2 cap PO DAILY PRN (Reason: constipation) polyethylene glycol 3350 [Miralax] 17 gram/dose powder 17 g PO DAILY Qty: 510 2RF Discontinued furosemide 20 mg tablet 1 tab PO DAILY Discharge Orders: Discharge Order (Routine); Ordered 02/25/22 Ordered By: Andreea Crocker Diet: Low salt diet Activity on Discharge: As tolerated Stand Alone Forms: Patient Portal Discharge page Care Plan Goals: Follow up with PCP in one week Health Concerns: Opioid use disorder Cocaine use disorder Plan of Treatment: Augmetin BID x 4 days Assessment: as per summary
--- NOTE | 2022-02-25 10:21 | MHC.CM.PN ---
Patient has been medically cleared for dc to home today, self care.
--- NOTE | 2022-02-25 10:48 | PC.NURSE ---
Mccord was removed at 9:[address] Crocker. Pt due to void [id number]. pt awared
[2022-02-25] MEDS: Naloxone HCl Nasal TAKE HOME 4 MG SPRAY NOSTRILALT (13:15)
== END 2022-02-25 14:10 | disposition home or self-care (01) | DRG 812 ==
LOC: HO.ED 07:20 → HO.EDOVER 13:03 → HO.IMC 14:22
PROVIDERS: Internal Medicine Cardiovascular Disease; Admitting Provider Physician Assistant; Emergency Provider Emergency Medicine Emergency Medical Services; PCP Family Medicine; Visit Provider Student in an Organized Health Care Education/Training Program
DX: T40.2X1A Poisoning by other opioids, accidental (unintentional), initial encounter (principal); J96.01 Acute respiratory failure with hypoxia; J69.0 Pneumonitis due to inhalation of food and vomit; E87.4 Mixed disorder of acid-base balance; F14.10 Cocaine abuse, uncomplicated; E66.9 Obesity, unspecified; D50.9 Iron deficiency anemia, unspecified; E78.5 Hyperlipidemia, unspecified; F32.A Depression, unspecified; I10 Essential (primary) hypertension; M79.7 Fibromyalgia; M19.90 Unspecified osteoarthritis, unspecified site; G89.29 Other chronic pain; Z20.822 Contact with and (suspected) exposure to COVID-19; Z68.32 Body mass index [BMI] 32.0-32.9, adult; Z86.16 Personal history of COVID-19; Z23 Encounter for immunization; Z98.84 Bariatric surgery status; Z79.82 Long term (current) use of aspirin; Z79.899 Other long term (current) drug therapy
CPT/HCPCS: 36415; 71045; 80048; 80053; 80307; 81001; 81003; 82077; 82550; 82803; 82947; 83605; 83690; 83880; 84484; 85025; 85610; 85730; 87040; 87502; 87635; 90686; 93005; 99285; C1758; J0295; J1650; J1885; J2543

== ENCOUNTER 2023-01-24 12:39 | Outpatient (REF) | payer MEDICAID, SELFPAY ==
--- NOTE | ~2023-01-24 | US_ITS ---
EXAMINATION: MM DIAGNOSTIC DIGITAL BREAST TOMOSYNTHESIS, BILATERAL US BREAST LIMITED, LEFT MAMMOGRAPHY: CLINICAL INFORMATION: Patient complaining of palpable focus of concern left breast at the 4:00 axis, but can no longer feel. Bilateral silicone implants in place. Patient also due for routine annual screening. COMPARISON: Mammography: 06/11/2021, 08/29/2017, 07/30/2016, 06/05/2015, 05/02/2014. MRI breasts bilateral 10/20/2012. TECHNIQUE: Digital mammography is performed in craniocaudal and mediolateral oblique views. Digital breast tomosynthesis is performed in implant-displaced craniocaudal and implant-displaced mediolateral oblique views. Synthesized 2D images are generated from the tomosynthesis. Computer-aided detection (CAD) is performed for this exam. A second right implant displaced 3-D MLO view was included. FINDINGS: There are scattered areas of fibroglandular density (ACR BI-RADS breast composition Category b). There are bilateral silicone implants in place, without definite complication. There is a 1.0 cm calcification abutting the mid to inferior left lateral silicone implant, likely within the pseudocapsule, which may be what the patient repeatedly is feeling. In reviewing the prior MRI, this could also be seen in the left breast in a cleft within the left implant. The patient may be feeling this calcification on the surface of the implant and moving it around. Otherwise, There are no suspicious masses, suspicious grouped calcifications, or areas of architectural distortion. The parenchymal pattern is stable from prior exams. ULTRASOUND: CLINICAL INFORMATION: As above. COMPARISON: None contributory. TECHNIQUE: Targeted sonographic evaluation left breast was performed using a high frequency linear transducer. The patient could not currently locate the palpable focus, some of the breast was scanned spanning the 1:00 to 6:00 locations. Selected archived documentation. FINDINGS: LEFT BREAST: There is a mixture of fatty and fibroglandular tissue. No suspicious mass is seen. There is no pathologic acoustic shadowing. There is a macrocalcification abutting the fibrous capsule of the left implant seen on ultrasound series 1, image 1 of 10. This is likely the source of the palpable focus. Otherwise, no additional abnormalities seen. The implants have a somewhat wavy contour but are otherwise normal. US/US breast LT limited mamm only IMPRESSION: 1.0 cm macrocalcification on the surface of the left silicone implant, most likely accounting for the area of palpable concern, of which the patient is may be palpating and moving into different locations. This can be seen on prior exams and the prior MRI. Otherwise, no findings suspicious for malignancy in either breast. No additional explanation for palpable focus left breast at the 4:00 axis. No evidence of implant rupture. In light of these findings, recommend continued clinical management. Otherwise, recommend return to routine mammographic screening. OVERALL ASSESSMENT: Mammography: BI-RADS 2 - Benign Findings Ultrasound: BI-RADS 2 - Benign Findings RECOMMENDATION: 1. Patient should be managed based on the clinical impression. Decision to proceed with biopsy should be based on clinical grounds and degree of clinical concern. 2. Otherwise, routine annual screening mammography. This patient's information was entered into a reminder system with a target due date for their next mammogram.
== END 2023-01-24 12:40 | disposition home or self-care (01) ==
LOC: HO.MAMMO 12:39
PROVIDERS: Absent Provider Physical Medicine & Rehabilitation; PCP Family Medicine; Visit Provider Internal Medicine Medical Oncology
DX: R92.1 Mammographic calcification found on diagnostic imaging of breast (principal); N63.23 Unspecified lump in the left breast, lower outer quadrant; M25.561 Pain in right knee; M25.562 Pain in left knee
CPT/HCPCS: 73564; 76642; 77062; 77066

== ENCOUNTER → 2023-01-24 14:30 | Outpatient (BNV) | payer MEDICAID, SELFPAY | PROVIDERS: Absent Provider Physical Medicine & Rehabilitation; PCP Family Medicine; Visit Provider Radiology Diagnostic Radiology | DX: R92.323 Mammographic fibroglandular density, bilateral breasts (principal); R92.1 Mammographic calcification found on diagnostic imaging of breast; R92.312 Mammographic fatty tissue density, left breast; R92.322 Mammographic fibroglandular density, left breast | CPT/HCPCS: 76642; 77062; 77066 ==

== ENCOUNTER 2023-01-26 08:19 | Outpatient (REF) | payer MEDICAID, SELFPAY | END 2023-01-26 08:20 | disposition home or self-care (01) | LOC: HO.MDS 08:19 | PROVIDERS: Visit Provider Internal Medicine Medical Oncology | DX: D50.8 Other iron deficiency anemias (principal) | CPT/HCPCS: 96365; J1756 ==

== ENCOUNTER 2023-02-01 13:38 | Outpatient (AMB) | payer MEDICAID, SELFPAY ==
--- NOTE | 2023-02-01 13:40 | MHC.OFFVIS ---
Intake Vital Signs 02/01/23 13:51 Height 5 ft 2 in Weight 196 lb BMI 35.8 BP 139/80 Blood Pressure Location Lt brachial Position Sitting Pulse 77 Intake Visit Reasons: left breast pain/tenderness Intake Note: Patient is seen in office for evaluation and treatment of left breast pain and tenderness. Patient c/o: onset 3 months, started out as discomfort in the left breast, had breast augmentation on 2006, no prior breast infections or concerns, no breast feeding Flipping Machine Operator Required: Yes Flipping Machine Operator Language: Patient Ombudsperson Name: Elen LAZO Information Interpreted: non-clinical & clinical Machine Shop Inspector: Machine Shop Inspector Present Accompanied by: Self / Same As Patient Allergies No Known Allergies [No Known Allergies*] Allergy (Unverified 02/01/23 13:50) HPI HPI Comments History of Present Illness Details 52-year-old female patient presenting for evaluation of left breast pain. She has a previous history of bilateral breast augmentation with silicone implants performed at [facility] in 2006. She had an open wound on the right side which eventually closed without evidence of infection. She denies previous problems with her breast or other breast surgery. Her family history is significant for her sister developing breast cancer at the age of 42. She mainly complains of pain in the upper outer quadrant of the left breast. Subsequent mammogram and ultrasound performed on 01/24/2023 at the [facility] revealed a 1 cm benign calcification corresponding to the area of tenderness. This is directly adjacent to the silicone implant. [facility] Medical History Fibromyalgia Fentanyl use disorder, severe Cocaine abuse Opiate overdose Hx of chest pain Osteoarthritis Iron deficiency anemia Depression Hyperlipidemia HTN (hypertension) Acid reflux COVID-19 virus infection Surgical History History of knee surgery History of Ceci-en-Y gastric bypass (~2004) Hx of esophagogastroduodenoscopy (~02/2018) Hx of colonoscopy Status post laparoscopic cholecystectomy Status post tonsillectomy Hx of appendectomy Family History Sister Breast cancer, Onset Age: 42 Father Alzheimer disease Mother HTN (hypertension) Brother Respiratory failure Social History Household Members: Family Housing: House Are you a primary care manager to a significant other at home: No Do you presently have visiting nurse or other home services: No Patient Tobacco Use Status: Never used Tobacco Second Hand Smoke Exposure: No service: No Current occupational status: employed Current occupation: daycare provider Female Reproductive History Menstrual Age of Menarche: 14 Age of menopause: 42 Total pregnancies: 3 Number of Living Children: 3 Review of Systems Const All systems reviewed & are unremarkable except as noted in HPI and below Denies nipple discharge Skin/Breast Reports breast pain, Reports breast mass, Denies change in pigmentation and Denies nipple discharge Physical Exam Const General: cooperative and no acute distress Nutritional Appearance: well nourished Orientation/consciousness: patient oriented x3 Limitations: no limitations HEENT Head: Yes normocephalic and Yes atraumatic Ears: hearing grossly normal bilaterally Chest Other: Previous bilateral breast implants. Left breast: No skin change, no nipple retraction, no nipple discharge, faintly palpable nodule in the upper outer quadrant at approximately 02:00 o'clock location corresponding to the calcification seen on mammogram. This is the site of tenderness for patient. There are no enlarged lymph nodes. Right breast: No skin change, no nipple retraction, no nipple discharge, no palpable mass, no enlarged lymph nodes Resp Effort & Inspection: normal respiratory effort, no audible wheezes, no cough and no respiratory distress Cardio Jugular venous distension: no JVD GI Inspection: Yes normal to inspection Skin Other: Warm, dry, no rash Neuro General: patient oriented x3 Extrem General: Yes no clubbing, cyanosis or edema Assessment & Plan Assessment & Plan (1) Breast mass, left: Code(s): N63.20 - Unspecified lump in the left breast, unspecified quadrant Qualifiers: Breast mass location: upper outer quadrant Qualified Code(s): N63.21 - Unspecified lump in the left breast, upper outer quadrant Plan 52-year-old female patient with a strong family history of breast cancer found to have a palpable nodule in the left breast with tenderness at the upper outer quadrant. She has a prior history of breast implants and is noted to have a calcification corresponding to the palpable nodule in the left breast. This was previously seen on CT scan of the chest several years ago and has not changed significantly. The calcification appears to be directly adjacent to the implant and would be best left alone. I recommended follow-up examination in 6 months for clinical breast examination. She is welcome to call sooner for any new concerns. Coding Level of Care Code New Pt Level 4 (19567) Diagnoses Mass of upper outer quadrant of left breast N63.21 Breast mass location: upper outer quadrant
[2023-02-01 13:51] VITALS: BP 139/80; PULSE 77; BMI 35.8
== END 2023-02-01 14:06 | disposition home or self-care (01) ==
PROVIDERS: PCP Family Medicine; Referring Provider Internal Medicine Medical Oncology; Visit Provider Surgery
DX: N63.21 Unspecified lump in the left breast, upper outer quadrant (principal)
CPT/HCPCS: 99204

== ENCOUNTER → 2023-02-01 13:38 | Outpatient (BNVA) | payer MEDICAID, SELFPAY | PROVIDERS: PCP Family Medicine; Referring Provider Internal Medicine Medical Oncology; Visit Provider Surgery ==

== ENCOUNTER 2023-02-04 08:31 | Outpatient (REF) | payer MEDICAID, SELFPAY | END 2023-02-04 08:32 | disposition home or self-care (01) | LOC: HO.MDS 08:31 | PROVIDERS: Visit Provider Internal Medicine Medical Oncology | DX: D50.8 Other iron deficiency anemias (principal) | CPT/HCPCS: 96374; J1756 ==

== ENCOUNTER 2023-02-11 09:56 | Outpatient (REF) | payer MEDICAID, SELFPAY | END 2023-02-11 09:57 | disposition home or self-care (01) | LOC: HO.MDS 09:56 | PROVIDERS: Visit Provider Internal Medicine Medical Oncology | DX: D50.8 Other iron deficiency anemias (principal) | CPT/HCPCS: 96365; J1756 ==

== ENCOUNTER 2023-02-14 14:14 | Outpatient (AMB) | payer MEDICAID, SELFPAY ==
--- NOTE | 2023-02-14 14:20 | MHC.OFFVIS ---
Intake Vital Signs 02/14/23 14:21 Height 5 ft 2 in Weight 198 lb BMI 36.2 BP 114/70 Blood Pressure Location Lt brachial Position Sitting Pulse 79 Intake Visit Reasons: Follow up after Bar Swallow Intake Note: Patient follow up for Barium swallow and lab results. Patient cc: abdominal pain after eating , patient said she is feeling a little ball on her stomach, acid reflex with burning sensation, some dysphagia and constipation. Metal Annealer Required: Yes Accompanied by: Self / Same As Patient Allergies No Known Allergies [No Known Allergies*] Allergy (Verified 02/14/23 14:19) Medication List - Last Reconciled 02/14/23 by Vinita Jurado PA-C amlodipine 1 tab PO DAILY aspirin 1 tab PO DAILY buspirone 1 tab PO TID carvedilol 1 tab PO BID diclofenac potassium 1 tab PO BID PRN docusate sodium (Colace) 200 mg (2 x 100 mg) PO BEDTIME PRN duloxetine 1 cap PO DAILY fluoxetine 1 cap PO DAILY hydroxyzine pamoate 1 cap PO TID PRN isosorbide mononitrate ER 1 tab PO QPM levothyroxine 1 tab PO DAILY@0630 lidocaine 5% (Lidoderm) 1 patch topical DAILY PRN nitroglycerin 0.4 mg sublingual Q5M PRN pantoprazole 20 mg PO QAM 30 days polyethylene glycol 3350 (Miralax) 17 grams PO DAILY tramadol 1 tab PO Q8H PRN trazodone 1 tab PO BEDTIME PRN HPI HPI Comments History of Present Illness Details A 52-year-old female follows up after her barium swallow from October. She has since been scheduled for a colonoscopy for polyp surveillance in which she admits she did not show for. She presents today acid reflux, she had undergone EGD previously with Dr. Barksdale back in 2018 showed esophageal dysmotility recommended barium swallow to follow-up. Pantoprazole for acid reflux is fairly good response however she has not had any refills Reviewed imaging report She complains mostly of constipation has been ongoing she does not follow a regimen typically had been taking MiraLax as well as Colace however she ran out has been able to buy it. She does have a good appetite She has no nausea, vomiting, hematemesis, hematochezia fever chills . [facility] Medical History (Updated 02/14/23 @ 15:00 by Vinita Jurado PA-C) Acid reflux Fibromyalgia Fentanyl use disorder, severe Cocaine abuse Opiate overdose Hx of chest pain Osteoarthritis Iron deficiency anemia Depression Hyperlipidemia HTN (hypertension) COVID-19 virus infection Surgical History History of knee surgery History of Ceci-en-Y gastric bypass (~2004) Hx of esophagogastroduodenoscopy (~02/2018) Hx of colonoscopy Status post laparoscopic cholecystectomy Status post tonsillectomy Hx of appendectomy Family History Sister Breast cancer, Onset Age: 42 Father Alzheimer disease Mother HTN (hypertension) Brother Respiratory failure Social History Household Members: Family Housing: House Are you a primary college and career counselor to a significant other at home: No Do you presently have visiting nurse or other home services: No Patient Tobacco Use Status: Never used Tobacco Second Hand Smoke Exposure: No service: No Current occupational status: employed Current occupation: daycare provider Female Reproductive History Menstrual Age of Menarche: 14 Review of Systems Const All systems reviewed & are unremarkable except as noted in HPI and below ENT Denies dysphagia Card Denies chest pain and Denies dyspnea Resp Denies dyspnea GI Denies abdominal pain, Denies hematochezia, Reports constipation, Denies dysphagia, Reports heartburn, Denies nausea and Denies vomiting Physical Exam Vital Signs: Last Vital Signs Pulse 79 02/14/23 14:21 BP 114/70 02/14/23 14:21 BMI result Body Mass Index 36.2 Const General: cooperative, healthy appearing, comfortable and no acute distress Limitations: no limitations Resp Effort & Inspection: normal respiratory effort and able to speak in complete sentences Skin General skin exam: no rashes or lesions noted Extrem General: Yes full ROM Psych Appearance: grossly normal Mental Status: mental status grossly normal Speech and movement: Normal speech and movement present Affect: normal affect Attitude: cooperative Thought process: Normal thought process present Thought content: Normal thought content present Results Reviewed Results Reviewed: FINDINGS: Findings consistent with prior gastric surgery. A hiatal hernia is noted as seen previously. No reflux. The swallowing mechanism appears normal. Normal passage of contrast through the esophagus with otherwise normal-appearing contraction. No filling defects or ulcerations or stricture. FL/FL barium swallow IMPRESSION: Persistent hiatal hernia without reflux. Additional findings are stable consistent with history of prior gastric surgery. Assessment & Plan Assessment & Plan (1) Hiatal hernia: Code(s): K44.9 - Diaphragmatic hernia without obstruction or gangrene Plan: Reviewed precautions Small portions Remain upright after eating (2) History of colon polyps: Comment: Due for polyp surveillance however constipation needs to be resolved to ensure an adequate prep Code(s): Z86.010 - Personal history of colonic polyps Plan: Consistent bowel regimen Hopefully successful will schedule colonoscopy next next visit (3) Acid reflux: Comment: pantoprazole 20 mg reflux precautions Barium swallow-reviewed hiatal hernia Code(s): K21.9 - Gastro-esophageal reflux disease without esophagitis (4) Chronic constipation: Comment: Consistent bowel regimen Code(s): K59.09 - Other constipation Plan Consistent bowel regimen Maintain high-fiber diet Reflux precautions reviewed PPI Will follow-up for progress and schedule for colonoscopy Medications: New docusate sodium (Colace) 200 mg (2 x 100 mg) PO BEDTIME PRN 60 caps 5RF constipation pantoprazole 20 mg PO QAM 30 tabs 6RF 30 days Refilled polyethylene glycol 3350 (Miralax) 17 grams PO DAILY 510 grams 2RF Patient Instructions: Consistent bowel regimen Maintain high-fiber diet Reflux precautions reviewed PPI Encouraged to call questions or concerns Follow-up 1 month for progress Coding Level of Care Code Est Pt Level 3 (31012) Diagnoses Hiatal hernia K44.9 History of colon polyps Z86.010 Acid reflux K21.9 Chronic constipation K59.09 Time Spent (min) 25 Comment Metal Annealer
[2023-02-14 14:21] VITALS: BP 114/70; PULSE 79; BMI 36.2
== END 2023-02-14 14:48 | disposition home or self-care (01) ==
PROVIDERS: PCP Family Medicine; Visit Provider Physician Assistant
DX: K44.9 Diaphragmatic hernia without obstruction or gangrene (principal); Z86.010 Personal history of colon polyps; K21.9 Gastro-esophageal reflux disease without esophagitis; K59.09 Other constipation
CPT/HCPCS: 99213

== ENCOUNTER → 2023-02-14 14:14 | Outpatient (BNVA) | payer MEDICAID, SELFPAY | PROVIDERS: PCP Family Medicine; Visit Provider Physician Assistant | DX: K59.09 Other constipation (principal); K21.9 Gastro-esophageal reflux disease without esophagitis; K44.9 Diaphragmatic hernia without obstruction or gangrene; Z86.010 Personal history of colon polyps | CPT/HCPCS: 99212 ==

== ENCOUNTER 2023-02-18 10:22 | Outpatient (REF) | payer MEDICAID, SELFPAY ==
[2023-02-18 10:59] LABS: MANUAL DIFF FLAG NO
[2023-02-18 11:05] LABS: Basophils Percent Auto 0.7 % (0-2); Eosinophils Absolute Auto 0.1 X10*3/uL (0.0-0.4); Eosinophils Percent Auto 3.1 % (0-4); Hemoglobin 11.4 g/dl (12.0-16.0); Imm Gran Abs Auto 0.03 X10*3/uL (0.00-0.03); Imm Gran Pct Auto 0.7 % (0.0-0.4); Lymphocytes Absolute Auto 1.1 X10*3/uL (1.2-4.9); Lymphocytes Percent Auto 24.7 % (20-40); Mean Corpuscular HGB Conc 32.6 g/dl (31.0-35.0); Mean Corpuscular Hemoglobin 32.1 pg (27.0-33.0); Mean Corpuscular Volume 98.6 fL (80.0-98.0); Mean Platelet Volume 8.8 fL (9.4-12.3); Monocytes Absolute Auto 0.7 X10*3/uL (0.1-1.2); Monocytes Percent Auto 14.3 % (2-11); Neutrophils Absolute Auto 2.6 x10*3/uL (2.0-8.3); Neutrophils Percent Auto 56.5 % (45-73); Platelet Count 314 X10*3/uL (160-400); Red Blood Count 3.55 X10*6/uL (4.20-5.50); Red Cell Distribution Width 14.5 % (11.0-16.0); White Blood Count 4.5 X10*3/uL (4.8-10.8)
[2023-02-18 11:40] LABS: Ferritin 146 ng/mL (10-250)
== END 2023-02-18 10:23 | disposition home or self-care (01) ==
LOC: HO.MDS 10:22
PROVIDERS: Visit Provider Internal Medicine Medical Oncology
DX: D50.8 Other iron deficiency anemias (principal)
CPT/HCPCS: 36415; 82728; 85025; 96365; J1756

== ENCOUNTER 2023-02-25 10:45 | Outpatient (REF) | payer MEDICAID, SELFPAY | END 2023-02-25 10:46 | disposition home or self-care (01) | LOC: HO.MDS 10:45 | PROVIDERS: Visit Provider Internal Medicine Medical Oncology | DX: D50.8 Other iron deficiency anemias (principal) | CPT/HCPCS: 96365; J1756 ==

== ENCOUNTER 2023-03-04 11:47 | Outpatient (REF) | payer MEDICAID, SELFPAY | END 2023-03-04 11:48 | disposition home or self-care (01) | LOC: HO.MDS 11:47 | PROVIDERS: Visit Provider Internal Medicine Medical Oncology | DX: D50.8 Other iron deficiency anemias (principal) | CPT/HCPCS: 96365; J1756 ==

== ENCOUNTER 2023-03-11 11:42 | Outpatient (REF) | payer MEDICAID, SELFPAY | END 2023-03-11 11:43 | disposition home or self-care (01) | LOC: HO.MDS 11:42 | PROVIDERS: Visit Provider Internal Medicine Medical Oncology | DX: D50.8 Other iron deficiency anemias (principal) | CPT/HCPCS: 96365; J1756 ==

== ENCOUNTER 2023-03-16 13:11 | Outpatient (REF) | payer MEDICAID, SELFPAY ==
[2023-03-16 14:33] LABS: Basophils Absolute Auto 0.1 X10*3/uL (0.0-0.2); Basophils Percent Auto 0.9 % (0-2); Eosinophils Absolute Auto 0.1 X10*3/uL (0.0-0.4); Eosinophils Percent Auto 2.3 % (0-4); Hematocrit 34.7 % (37.0-47.0); Hemoglobin 11.3 g/dl (12.0-16.0); Imm Gran Abs Auto 0.01 X10*3/uL (0.00-0.03); Imm Gran Pct Auto 0.2 % (0.0-0.4); Lymphocytes Absolute Auto 1.6 X10*3/uL (1.2-4.9); Lymphocytes Percent Auto 29.3 % (20-40); MANUAL DIFF FLAG SCAN; Mean Corpuscular HGB Conc 32.6 g/dl (31.0-35.0); Mean Corpuscular Hemoglobin 31.7 pg (27.0-33.0); Mean Corpuscular Volume 97.2 fL (80.0-98.0); Monocytes Absolute Auto 0.7 X10*3/uL (0.1-1.2); Monocytes Percent Auto 11.8 % (2-11); Neutrophils Absolute Auto 3.1 x10*3/uL (2.0-8.3); Neutrophils Percent Auto 55.5 % (45-73); PLT CLUMP 1; Red Blood Count 3.57 X10*6/uL (4.20-5.50); Red Cell Distribution Width 13.5 % (11.0-16.0); SCAN SMEAR FLAG 1
[2023-03-16 14:57] LABS: White Blood Count 5.6 X10*3/uL (4.8-10.8)
[2023-03-16 14:58] LABS: Platelet Count 237 X10*3/uL (160-400); SLIDE REVIEW VERIFIED
[2023-03-16 15:01] LABS: Ferritin 263 ng/mL (10-250)
== END 2023-03-16 13:12 | disposition home or self-care (01) ==
LOC: HO.MDS 13:11
PROVIDERS: Visit Provider Internal Medicine Medical Oncology
DX: D50.8 Other iron deficiency anemias (principal)
CPT/HCPCS: 36415; 82728; 85025; 96365; J1756

== ENCOUNTER 2023-08-03 12:25 | Outpatient (REF) | payer MEDICAID, SELFPAY ==
[2023-08-03 14:24] LABS: B Type Natriuretic Peptide 12 pg/mL (<100)
[2023-08-03 14:35] LABS: Anion Gap 10 (12-20); Blood Urea Nitrogen 19 mg/dL (9-16); Calcium 8.4 mg/dL (8.4-10.2); Carbon Dioxide 27 mmol/L (22-29); Chloride 108 mmol/L (96-108); Estimated Glomerular Filt Rate > 60; Glucose Random 92 mg/dL (60-115); Potassium 4.4 mmol/L (3.3-5.1); Sodium 141 mmol/L (135-145)
== END 2023-08-03 12:26 | disposition home or self-care (01) ==
LOC: HO.HHCL 12:25
PROVIDERS: Visit Provider Internal Medicine Cardiovascular Disease
DX: M79.89 Other specified soft tissue disorders (principal)
CPT/HCPCS: 36415; 80048; 83880

== ENCOUNTER 2024-07-24 09:38 | Outpatient (REF) | payer MEDICAID, SELFPAY ==
--- OUTSIDE RECORDS SUMMARY | 2024-07-24 10:59 | XMS_ITS | Patient Health Record ---
Author Organization [facility] Address [address] [place] [id number] Care Team Providers Care Federal Java Developer Name Role Phone Mallory Sprague MD Primary Care Provider Jim Beavers Jr Unavailable Allergies No Known Allergies Reason For Referral No Information Medications Medication SIG (Take, Route, Frequency, Duration) Notes Start Date End Date Status GaviLAX 17 GM/SCOOP TAKE 17 GM MIXED IN 8 OUNCES OF WATER, COFFEE OR TEA ONCE DAILY Oral for 30 Active Docusate Sodium 100 MG TAKE 2 CAPSULES B Y MOUTH EVERY DAY NEEDED FOR CONSTIPATION Oral for 30 Active Aspirin Low Dose 81 MG TAKE 1 TABLET BY MOUTH EVERY DAY Oral for 30 Active B12 5000 MCG as directed Sublingual 09/23/2021 Active MiraLax (colon prep) 17 GM/SCOOP mixed with Gatorade or Crystal Light Orally begin at 5:00 p.m. the day before the procedure for 1 day 09/25/2021 Active Isosorbide Mononitrate ER 30 MG TAKE 1 TABLET BY MOUTH EVERY EVENING Diagnosis Unavailable Oral for 30 Active amLODIPine Besylate 10 MG TAKE 1 TABLET BY MOUTH EVERY DAY Oral for 30 Active Furosemide 20 MG TAKE 1 TABLET BY MALCOM TH EVERY DAY Oral for 30 Active Carvedilol 3.125 MG TAKE 1 TABLET BY MALCOM TH TWICE DAILY WITH FOOD Oral for 90 Active Pantoprazole Sodium 20 MG TAKE 1 TABLET BY MOUTH TWICE DAILY Oral for 30 Active Sucralfate 1 GM TAKE 1 TABLET BY MALCOM TH FOUR TIMES DAILY, BEFORE MEALS AND AT BEDTIME Oral for 23 Active Levothyroxine Sodium 150 MCG TAKE 1 TABLET BY MOUTH EVERY DAY Oral for 30 Active Immunizations Vaccine Route Administration Date Status Comme nts Influenza Unknown 03/09/2021 Administered Social History Tobacco Use: Social History Observation Description Date Details (start date - stop date) Never Smoker NA - NA Tobacco Use/Smoking Question Answer Notes Patient is a nonsmoker Alcohol Screen Question Answer Notes Did you have a drink containing alcohol in the p ast year? No Points 0 Interpretation Negative Problems Problem Type SNOMED Code ICD Code Onset Dates Problem Status W/U Status Risk Notes Problem [id number] Iron deficiency anemia, unspecified iron deficiency anemia type (D50.9) Active confirmed Plan Of Treatment Future Test Test Name Order Date UPPER GI ENDOSCOPY 09/25/2021 COLONOSCOPY 09/25/2021 Insurance Providers Payer Name Payer Address Payer Phone Subscriber Number Group Number Insured Name Patient Relationship to Insured Coverage Start Date Coverage End Date [facility]ICA[facility] [address] [place] [phone] [id number] KATHERINE REICH Self - patient is the insured Medical (General) History Medical History History ICD Code Hypertension Hyperlipidemia Chest pain with negative car diac catheterization 05/14, question microvascular disease or coronary spasm Depression Iron deficiency anemia Osteoarthritis EGD 03/12 mild gastritis, no H. pylori, surgical changes from Ceci-en-Y LGB Surgical History Surgery Date(Month/Year) Appendectomy Tubal ligation Laparoscopic gastric bypassLiza 2004 Augmentation mammoplasty Abdominoplasty
--- OUTSIDE RECORDS SUMMARY | 2024-07-24 11:00 | XMS_ITS | Encounter Summary ---
Author Organization [facility] Address [address] [place] [address] [address] [place] [address] Care Team Providers Care Attending Urologist Name Role Phone Mallory Sprague MD Primary Care Provider [phone] Mahendra Schilling MD Unavailable [phone] Ness Chauhan DO Unavailable [phone] Reason for Visit * Reason Comments Med Refill Encounter Details Date Type Department Care Team (Late st Contact Info) Description 11/25/2022 Refill [facility] [address] [place] [address] [facility] [address] [place] [address] Social History Tobacco Use Types Packs/Day Years Used Date Smoking Tobacco: Never Smokeless Tobacco: Never Depression Answer Date Recorded Patient Health Questionnaire-9 Score 0 05/26/2022 Depression Answer Date Recorded Patient Health Questionnaire-2 Score 0 05/26/2022 Comments Unknown Sex and Gender Information Value Date Recorded Sex Assigned at Female 02/22/2022 10:15 AM EDT Legal Sex Female 10:15 AM EDT Gender Identity Choose not to disclose 10:15 AM EDT Sexual Orientation Choose not to disclose 2021 10:15 AM EDT documented as of this encounter Plan of Treatment Not on file documented as of this encounter Visit Diagnoses Not on filedocumented in this encounter Additional Health Concerns Assessment Noted Time PHQ-9 Depression Total Score: 0 05/26/19 23 10:56 AM EST documented as of this encounter Care Teams Attending Urologist Relationship Specialty Start Date End Date Mallory Sprague MD [address] [place] [address] PCP - General Family Medicine 04/25/18 Mahendra Schilling MD [address] [place] [address] Cardiology 05/16/24 Ness Chauhan DO [address] [place] [id number] Orthopaedic Surgery 05/16/[address] [facility] Psychiatry 05/16/24 documented as of this encounter
--- OUTSIDE RECORDS SUMMARY | 2024-07-24 11:00 | XMS_ITS | Clinical Summary ---
Author Organization [employer] Address [address] [place] [address] [address] [place] [address] Care Team Providers [facility] Worker Name Role Phone Mallory Sprague MD Primary Care Provider [phone] Mahendra Schilling MD Unavailable [phone] Ness Chauhan DO Unavailable Allergies No known active allergies Medications lidocaine (Lidoderm) 5 % patchIndications:C hronic pain of left knee Apply 1 patch topically in the morning. Remove & discard patch within 12 hours or as directed by MD. 30 patch 5 06/27/19 23 Active albuterol 108 (90 Base) MCG/ACT inhalerIndications :COVID-19 Inhale 2 puffs every 6 (six) hours if needed for wheezing. 18 g 11 07/22/19 23 Active pantoprazole (ProtoNix) 20 MG EC tabletIndications: Dyspepsia Take 1 tablet (20 mg) by mouth 2 times daily. 60 tablet 07/22/19 23 Active estradiol (Climara) 0.05 MG/24HRIndications :Menopause APPLY ONE PATCH TRANSDERMALLY ONCE A WEEK 12 patch 3 03/13/20 24 Active levothyroxine (Synthroid, Levoxyl) 150 MCG tabletIndications: Other specified hypothyroidism TAKE 1 TABLET BY MOUTH EVERY DAY 90 tablet 05/01/19 25 Active Tirzepatide-Weight Management (Zepbound) 2.5 MG/0.5ML solution auto-injectorIndic ations:Obesity Inject 0.5 mL (2.5 mg) under the skin 1 (one) time per week. Start 5.5 mg weekly x 4 weeks, then increased to 5 mg x 4 weeks, then increase to 7.5 mg weekly 2 mL 1 05/16/19 25 Active traMADol (Ultram) 50 MG tabletIndications: Left knee pain, unspecified chronicity Take by mouth. Per ortho Active pregabalin (Lyrica) 150 MG capsuleIndications :Fibromyalgia Take 150 mg by mouth 2 times daily. Per ortho Active loratadine (Claritin) 10 MG tabletIndications: Seasonal allergies Take 1 tablet (10 mg) by mouth Once per day. 30 tablet 05/16/19 25 026 Active polyethylene glycol, PEG, 3350 (GaviLAX) 17 GM/SCOOP powderIndications: Chronic constipation 17 grams in 8 oz liquid po daily prn constipation 520 g 2 05/16/19 25 Active busPIRone (Buspar) 30 MG tabletIndications: Moderate major depression (CMS/HCC) Take 1 tablet by mouth 2 times daily. 05/04/19 25 Active carvedilol (Coreg) 6.25 MG tabletIndications: History of non-ST elevation myocardial infarction (NSTEMI) Take 6.25 mg by mouth with breakfast and with evening meal. 02/28/20 24 Active amLODIPine (Norvasc) 10 MG tabletIndications: History of non-ST elevation myocardial infarction (NSTEMI) Take by mouth Once per day. Patient followed at [facility] with Dr. Petros Schilling DO. Active aspirin 81 MG EC tabletIndications: History of non-ST elevation myocardial infarction (NSTEMI) Take 81 mg by mouth Once per day. Patient followed at [facility] with Dr. Petros Schilling DO. Active DULoxetine (Cymbalta) [address] capsuleIndications :Moderate major depression (CMS/HCC) Take 20 mg by mouth 2 times daily. Do not crush or chew. Dr. Duran Active docusate sodium (Colace) 100 MG capsuleIndications :Chronic constipation Take 1 tab po bid prn constipation 180 capsule 05/16/19 25 Active LORazepam (Ativan) 0.5 MG tabletIndications: Moderate major depression (CMS/HCC) Take by mouth. Activ e isosorbide mononitrate ER (Imdur) 30 MG 24 hr tabletIndications: History of non-ST elevation myocardial infarction (NSTEMI) Take 30 mg by mouth Once per day. Do not crush or chew. Active furosemide (Lasix) 20 MG tabletIndications: History of non-ST elevation myocardial infarction (NSTEMI) Take by mouth. Activ e Active Problems Problem Noted Date Diagnosed Date Encounter for screening mamm ogram for malignant neoplasm of breast 05/16/2024 Overview (05/16/2024): Mammogram with soft tissue US 01/24/23 IMPRESSION: 1.0 cm macrocalcification on the surface of the left silicone implant, most likely accounting for the area of palpable concern, of which the patient is may be palpating and moving into different locations. This can be seen on prior exams and the prior MRI. Otherwise, no findings suspicious for malignancy in either breast. No additional explanation for palpable focus left breast at the 4:00 axis. No evidence of implant rupture. In light of these findings, recommend continued clinical management. Otherwise, recommend return to routine mammographic screening. Due 01/25/24 -ordered mammogram 05/16/24 Assessment & Plan (05/16/2024 4:21 PM EST): Mammogram with soft tissue US 01/24/23 IMPRESSION: 1.0 cm macrocalcification on the surface of the left silicone implant, most likely accounting for the area of palpable concern, of which the patient is may be palpating and moving into different locations. This can be seen on prior exams and the prior MRI. Otherwise, no findings suspicious for malignancy in either breast. No additional explanation for palpable focus left breast at the 4:00 axis. No evidence of implant rupture. In light of these findings, recommend continued clinical management. Otherwise, recommend return to routine mammographic screening. Due 01/25/24 -ordered mammogram 05/16/24 BMI 37.0-37.9, adult 05/16/2024 Overview (07/02/2024): Baseline weight: 206 05/16/24 -given BMI >30kg/m2 or >27kg/m2 with one or more weight related comorbidities (OA knees, hypertension, dyslipidemia) pt is a candidate for glucagon-like peptide- 1s (GLP-1) to assist with weight loss -pt has attempted > 3 months of dietary changes and increased physical activity without significant reduction in weight including bariatric surgery -patient counseled this medication is to be used in combination with reduced calorie diet and increased physical activity -Contraindication to phentermine: uncontrolled hypertension and history of drug abuse -Reviewed w/ pt side effects of GLP1 and how to mitigate incl eating small portions and do not eat through sensation of fullness. No personal or family h/o papillary thyroid cancer. No personal h/o pancreatitis. Does/does not have retinopathy. Refrigerate but do not freeze. -For Zepbound (tirzepatide) Start 2.5mg subcutaneously q week x 1 month, then 5mg subcutaneously q week. May increased by 2.5mg q 4 weeks with max 15mg/wk -as of 07/02/24 she has not heard, will check on status of med Assessment & Plan (07/02/2024 12:25 PM EDT): Baseline weight: 206 05/16/24 -given BMI >30kg/m2 or >27kg/m2 with one or more weight related comorbidities (OA knees, hypertension, dyslipidemia) pt is a candidate for glucagon-like peptide- 1s (GLP-1) to assist with weight loss -pt has attempted > 3 months of dietary changes and increased physical activity without significant reduction in weight including bariatric surgery -patient counseled this medication is to be used in combination with reduced calorie diet and increased physical activity -Contraindication to phentermine: uncontrolled hypertension and history of drug abuse -Reviewed w/ pt side effects of GLP1 and how to mitigate incl eating small portions and do not eat through sensation of fullness. No personal or family h/o papillary thyroid cancer. No personal h/o pancreatitis. Does/does not have retinopathy. Refrigerate but do not freeze. -For Zepbound (tirzepatide) Start 2.5mg subcutaneously q week x 1 month, then 5mg subcutaneously q week. May increased by 2.5mg q 4 weeks with max 15mg/wk -as of 07/02/24 she has not heard, will check on status of med Assessment & Plan (05/16/2024 4:01 PM EST): Baseline weight: 206 05/16/24 -given BMI >30kg/m2 or >27kg/m2 with one or more weight related comorbidities (OA knees, hypertension, dyslipidemia) pt is a candidate for glucagon-like peptide- 1s (GLP-1) to assist with weight loss -pt has attempted > 3 months of dietary changes and increased physical activity without significant reduction in weight including bariatric surgery -patient counseled this medication is to be used in combination with reduced calorie diet and increased physical activity -Contraindication to phentermine: uncontrolled hypertension and history of drug abuse -Reviewed w/ pt side effects of GLP1 and how to mitigate incl eating small portions and do not eat through sensation of fullness. No personal or family h/o papillary thyroid cancer. No personal h/o pancreatitis. Does/does not have retinopathy. Refrigerate but do not freeze. -For Zepbound (tirzepatide) Start 2.5mg subcutaneously q week x 1 month, then 5mg subcutaneously q week. May increased by 2.5mg q 4 weeks with max 15mg/wk Dietary counseling 05/16/2024 Assessment & Plan (05/16/2024 4:02 PM EST): Dietary Recommendations: Fruits, vegetables, whole grains, protein foods, and fat-free or low-fat dairy products are healthy choices. Eat different types of protein foods in your diet. This can include seafood, lean meats, poultry, beans, peas, lentils, nuts, seeds, soy products, and eggs. Limit foods and beverages higher in added sugars, saturated fat, and sodium. Exercise counseling 05/16/2024 Assessment & Plan (05/16/2024 4:02 PM EST): Exercise Recommendations: At least 150 minutes of moderate-intensity physical activity per week, or an equivalent combination of moderate- and vigorous-intensity activity Perimenopause 03/29/2023 Overview (03/29/2023): -05/2022 pt reported not able to sleep from hot flashes, symtoms interfer with functioning. Risk of heart attack, possible increase risk of cancer and blood clots. She would like to pursue hormone therapy and agrees to do lowest dose for least amount of time. -estradiol (Climara) 0.05 MG/24HR started 05/2022 Assessment & Plan (03/29/2023 2:23 PM EST): -05/2022 pt reported not able to sleep from hot flashes, symtoms interfer with functioning. Risk of heart attack, possible increase risk of cancer and blood clots. She would like to pursue hormone therapy and agrees to do lowest dose for least amount of time. -estradiol (Climara) 0.05 MG/24HR started 05/2022 Positive urine drug screen 03/29/2023 Overview (03/29/2023): -Toxicology report in ER 10/2019 showed urine was positive for: Opiates, Cocaine and Benzos. -Toxicology in ER 10/2021 positive for benzos, cannabis, and cocaine. -Hospitalized 02/25/22 for unintentional opioid overdose, she had aspiration pneumonia. Her urine tox was positive for cocaine, fentanyl, opioid, and cannabis. -Guarded about use. Assessment & Plan (03/30/2023 9:20 AM EST): -Toxicology report in ER 10/2019 showed urine was positive for: Opiates, Cocaine and Benzos. -Toxicology in ER 10/2021 positive for benzos, cannabis, and cocaine. -Hospitalized 02/25/22 for unintentional opioid overdose, she had aspiration pneumonia. Her urine tox was positive for cocaine, fentanyl, opioid, and cannabis. -Guarded about use. Other specified health status 09/07/2022 Overview (05/16/2024): -next comprehensive annual evaluation due after 05/16/25 -eye care facilitated by [facility] seen 07/2022 -[facility] care proxy given and filed 05/16/24 Assessment & Plan (05/16/2024 3:51 PM EST): -next comprehensive annual evaluation due after 05/16/25 -eye care facilitated by [facility] seen 07/2022 -dental home is [facility] care proxy given and filed 05/16/24 Colon cancer screening 05/26/2022 Overview (05/16/2024): -Referred for Colon Cancer screening on 06/10/21 -At visit 08/2021 Vinita Jurado PA-C report pt had multiple GI concerns and colonoscopy to be discussed at next visit. -GI notes 01/2023 states colonoscopy to be scheduled -Re-referred to GI for colonoscopy 05/16/24 Assessment & Plan (05/16/2024 4:00 PM EST): -Referred for Colon Cancer screening on 06/10/21 -At visit 08/2021 Vinita Jurado PA-C report pt had multiple GI concerns and colonoscopy to be discussed at next visit. -GI notes 01/2023 states colonoscopy to be scheduled -Re-referred to GI for colonoscopy 05/16/24 Assessment & Plan (03/30/2023 9:20 AM EST): -Referred for Colon Cancer screening on 06/10/21 -At visit 08/2021 Vinita Jurado PA-C report pt had multiple GI concerns and colonoscopy to be discussed at next visit. -GI notes 01/2023 states colonoscopy to be scheduled H/O: hysterectomy 05/26/2022 Iron deficiency anemia 05/26/2022 Overview (05/16/2024): Lab Results Component Value Date HGB 12.3 06/08/2022 HGB 10.4 (L) 06/10/2021 HEMATOCRIT 36.4 06/08/2022 HEMATOCRIT 30.8 (L) 06/10/2021 -Followed by [facility], Dr. Devries -hematology note from 09/23/23 reviewed Assessment & Plan (03/30/2023 9:13 AM EST): Lab Results Component Value Date HGB 12.3 06/08/2022 HGB 10.4 (L) 06/10/2021 HEMATOCRIT 36.4 06/08/2022 HEMATOCRIT 30.8 (L) 06/10/2021 -Saw Hematology on 06/09/21 for iron transfustion -Had Hysterectomy in 2014. -hematology note 12/2022 reviewed Other specified hypothyroidism 05/26/2022 Overview (05/16/2024): Lab Results Component Value Date TSH 9.52 (H) 06/08/2022 -hx gastric bypass. -continue levothyroxine 175mcg daily -not taking med daiy, advise take same time daily on empty stomach -ordered repeat TSH 05/16/24 Assessment & Plan (05/16/2024 4:19 PM EST): Lab Results Component Value Date TSH 9.52 (H) 06/08/2022 -hx gastric bypass. -continue levothyroxine 175mcg daily -not taking med daiy, advise take same time daily on empty stomach -ordered repeat TSH 05/16/24 Assessment & Plan (03/30/2023 9:13 AM EST): Lab Results Component Value Date TSH 9.52 (H) 06/08/2022 -hx gastric bypass. -continue levothyroxine 175mcg daily -not taking med daiy, advise take same time daily on empty stomach and recheck 4 weeks 06/30/2021 she did not have her thyroid labs done. History of gastric bypass 05/24/2022 Assessment & Plan (05/24/2022 12:12 PM EST): PT continues to loose weight. She is followed by [facility] . Status post left knee surgery 05/24/2022 Assessment & Plan (05/24/2022 12:13 PM EST): Pt had surgery for left knee in [place] 01/2021 Right upper lobe pulmonary infiltrate 05/24/2022 Overview (03/29/2023): Patient reports she had a CT scan of the lungs in [place]. She reports this was done to evaluate for COVID and she was told she has spots on her lungs . The report in [place] says infiltrate in the posterior upper right lobe. CTA done 06/2019 after [place] reported No evidence of pulmonary embolism. Interval resolution of the previously seen airspace opacities within the lower lobes bilaterally. No aortic aneurysm or dissection. CT done 09/11/2021 Small pulmonary nodules probably representing peripheral or subpleural lymph nodes. These are not appreciated on previous June 2019 chest CTA. According to the UPDATED 2017 Fleischner Society recommendations, the advised follow-up imaging for less than 6 mm solid nodule: Low risk, no chest CT follow-up and high risk, optional chest CT follow-up in one year. Pt is low risk with mammo and thyroid US up to date. No further imaging at this time. Assessment & Plan (03/30/2023 9:18 AM EST): Patient reports she had a CT scan of the lungs in [place]. She reports this was done to evaluate for COVID and she was told she has spots on her lungs . The report in [place] says infiltrate in the posterior upper right lobe. CTA done 06/2019 after [place] reported No evidence of pulmonary embolism. Interval resolution of the previously seen airspace opacities within the lower lobes bilaterally. No aortic aneurysm or dissection. CT done 09/11/2021 Small pulmonary nodules probably representing peripheral or subpleural lymph nodes. These are not appreciated on previous June 2019 chest CTA. According to the UPDATED 2017 Fleischner Society recommendations, the advised follow-up imaging for less than 6 mm solid nodule: Low risk, no chest CT follow-up and high risk, optional chest CT follow-up in one year. Pt is low risk with mammo and thyroid US up to date. No further imaging at this time. Assessment & Plan (05/26/2022 11:49 AM EST): Patient reports she had a CT scan of the lungs in [place]. She reports this was done toe valuate for COVID and she was told she has spots on her lungs . The report in [place] says infiltrate in the posterior upper right lobe. Will check CT scan to evaluate for nodules. CTA done06/2019 after [place] reported No evidence of pulmonary embolism. Interval resolution of the previously seen airspace opacities within the lower lobes bilaterally. No aortic aneurysm or dissection. Left knee pain 05/24/2022 Overview (05/16/2024): - Pt was seen by [facility] 04/27/2022 for knee pain and she received an injection. -last note reviewed 07/2022 -Seen by [facility] on 02/16/24. Had bilateral knee steroid injections on 01/10/24 and again on 02/16/24. X-rays reviewed. Assessment & Plan (05/16/2024 4:03 PM EST): - Pt was seen by [facility] 04/27/2022 for knee pain and she received an injection. -last note reviewed 07/2022 -Seen by [facility] on 02/16/24. Had bilateral knee steroid injections on 01/10/24 and again on 02/16/24. X-rays reviewed. Assessment & Plan (03/30/2023 9:18 AM EST): - Pt was seen by [facility] 04/27/2022 for knee pain and she received an injection. -last note reviewed 07/2022 Assessment & Plan (05/24/2022 12:14 PM EST): Chronic left knee pain with osteoarthritis, no improvement with injection x2 and physical therapy. She calls requesting a second opinion. We reviewed that her course of care has been consistent with standard of care. I declined opiates given h/o divergent behavior in the past and abnormal urine/drug screens. Will refer as patient requested. Chronic midline low back pain without sciatica 0 05/24/2022 Overview (05/16/2024): - Followed by Orthopedics with Dr. Chauhan on 08/12/21 -Seen by [facility] on 02/16/24. Underwent midline L5- S1 interlaminar epidural steroid injection on 01/30/24. Continues using Tramadol PRN for pain. Lumbar MRI reviewed. Assessment & Plan (05/16/2024 4:03 PM EST): - Followed by Orthopedics with Dr. Chauhan on 08/12/21 -Seen by [facility] on 02/16/24. Underwent midline L5- S1 interlaminar epidural steroid injection on 01/30/24. Continues using Tramadol PRN for pain. Lumbar MRI reviewed. Assessment & Plan (03/30/2023 9:19 AM EST): - Followed by Orthopedics with Dr. Chauhan on 08/12/21 Family history of malignant neoplasm of breast 0 05/24/2022 History of non-ST elevation myocardial infarctio n (NSTEMI) 05/24/2022 Overview (05/16/2024): Pt saw Dr. Tam . Although pt is labeled with NSTEMI in 05/2010, coronary angiogram was normal. The rise of troponin, which was intermediate, is unclear. Continue to optimize risk factors. She was hospitalized 05/2011 for chest pain, ruled out VA with enzymes and EKGs, stress test recommended as outpatient. Pt saw Dr. Pardo but did not have stress test. Er precautions given. If concern for cardiac disease, [facility]. - continues on carvedilol and lasix but does not have formal Dx of hypertension - stress test on 04/08/2022 that was unremarkable with an EF of 54%. She was seen by cardiology 04/22/22 and echocardiogram was ordered. -echo 06/2022 unremarkable with EF 55-60% with Dr. Tam -Patient followed at [facility] with Dr. Petros Schilling DO. Note from 09/01/23 reviewed, no changes Assessment & Plan (07/02/2024 12:24 PM EDT): Pt saw Dr. Tam . Although pt is labeled with NSTEMI in 05/2010, coronary angiogram was normal. The rise of troponin, which was intermediate, is unclear. Continue to optimize risk factors. She was hospitalized 05/2011 for chest pain, ruled out VA with enzymes and EKGs, stress test recommended as outpatient. Pt saw Dr. Pardo but did not have stress test. Er precautions given. If concern for cardiac disease, will refer to [facility] for possible stress test. - continues on carvedilol and lasix but does not have formal Dx of hypertension - stress test on 04/08/2022 that was unremarkable with an EF of 54%. She was seen by cardiology 04/22/22 and echocardiogram was ordered. -echo 06/2022 unremarkable with EF 55-60% with Dr. Tam -Patient followed at [facility] with Dr. Petros Schilling DO. Note from 09/01/23 reviewed, no changes Assessment & Plan (05/16/2024 4:08 PM EST): Pt saw Dr. Tam . Although pt is labeled with NSTEMI in 05/2010, coronary angiogram was normal. The rise of troponin, which was intermediate, is unclear. Continue to optimize risk factors. She was hospitalized 05/2011 for chest pain, ruled out VA with enzymes and EKGs, stress test recommended as outpatient. Pt saw Dr. Pardo but did not have stress test. Er precautions given. If concern for cardiac disease, [facility] - continues on carvedilol and lasix but does not have formal Dx of hypertension - stress test on 04/08/2022 that was unremarkable with an EF of 54%. She was seen by cardiology 04/22/22 and echocardiogram was ordered. -echo 06/2022 unremarkable with EF 55-60% with Dr. Tam -Patient followed at [facility] with Dr. Petros Schilling DO. Note from 09/01/23 reviewed, no changes Assessment & Plan (03/30/2023 9:19 AM EST): Pt saw Dr. Tam . Although pt is labeled with NSTEMI in 05/2010, coronary angiogram was normal. The rise of troponin, which was intermediate, is unclear. Continue to optimize risk factors. She was hospitalized 05/2011 for chest pain, ruled out VA with enzymes and EKGs, stress test recommended as outpatient. Pt saw Dr. Pardo but did not have stress test. Er precautions given. If concern for cardiac disease, [facility]. - continues on carvedilol and lasix but does not have formal Dx of hypertension - stress test on 04/08/2022 that was unremarkable with an EF of 54%. She was seen by cardiology 04/22/22 and echocardiogram was ordered. -echo 06/2022 unremarkable with EF 55-60% with Dr. Tam -cardiology notes from 07/2022 reveiwed Assessment & Plan (05/26/2022 11:43 AM EST): Pt saw Dr. Tam . Although pt is labeled with NSTEMI in 05/2010, coronary angiogram was normal. The rise of troponin, which was intermediate, is unclear. Continue to optimize risk factors. She was hospitalized 05/2011 for chest pain, ruled out VA with enzymes and EKGs, stress test recommended as outpatient. Pt saw Dr. Pardo but did not have stress test. Er precautions given. If concern for cardiac disease, will refer to [facility] for possible stress test. She continues on carvedilol and lasix but does not have formal Dx of HTN Thyroid nodule 05/24/2022 Overview (03/29/2023): Small nodule noted on 01/30/2018 Location: Left Inferior. Size: 0.3 x 0.2 x 0.3 cm. Nodule characteristics: Hypoechoic, smooth margin, no calcification and no intranodular flow. -Repeat US done 07/30/2021 showed no change in features no lymphadenopathy. -Stable small left thyroid nodule. Assessment & Plan (03/30/2023 9:19 AM EST): Small nodule noted on 01/30/2018 Location: Left Inferior. Size: 0.3 x 0.2 x 0.3 cm. Nodule characteristics: Hypoechoic, smooth margin, no calcification and no intranodular flow. -Repeat US done 07/30/2021 showed no change in features no lymphadenopathy. -Stable small left thyroid nodule. Assessment & Plan (05/26/2022 11:43 AM EST): Small nodule noted on 01/30/2018 Location: Left Inferior. Size: 0.3 x 0.2 x 0.3 cm. Nodule characteristics: Hypoechoic, smooth margin, no calcification and no intranodular flow. Repeat US was ordered twice, but the study was not done Reordered 05/2021 and strongly encouraged to go. History of breast implant 05/24/2022 Moderate major depression 06/10/2021 Overview (05/16/2024): worsened depression with mixed anxiety after recent passing of her mother 03/2024 -continue cymbalta -advised [facility] of medication. -denies SI/HI -follows with psychiatrist at [facility] Assessment & Plan (03/30/2023 9:17 AM EST): ->6 months depression with mixed anxiety, continue cymbalta -advised [facility] of medication. -denies SI/HI -referred to [facility] for psychotherapy. Assessment & Plan (05/24/2022 12:11 PM EST): >6 months depression with mixed anxiety, continue cymbalta advised [facility]'s of medication. denies SI/HI referred to [facility] for psychotherapy. Fibromyalgia 06/10/2021 Overview (05/16/2024): Not controlled. Likely exacerbated by untreated depression complicated by poor follow though with treatment and plan. No MARTIN. Tika has difficulty distinguishing between noxious stimulus, suffering and psychosocial factors. She also seems to have a low pain threshold, possibly due to previous narcotic use. I continue to decline prescribing chronic narcotics, including Tramadol which were prescribed by multiple providers in the past for multiple reasons. No improvement with gabapentin. Lyrica was as not covered. + Utox in ER 10/2021 but guarded about use. -continue Cymbalta -continue exercise as tolerated at her [employer] Assessment & Plan (03/30/2023 9:18 AM EST): Not controlled. Likely exacerbated by untreated depression complicated by poor follow though with treatment and plan. No MARTIN. Tika has difficulty distinguishing between noxious stimulus, suffering and psychosocial factors. She also seems to have a low pain threshold, possibly due to previous narcotic use. I continue to decline prescribing chronic narcotics, including Tramadol which were prescribed by multiple providers in the past for multiple reasons. No improvement with gabapentin. Lyrica was as not covered. + Utox in ER but guarded about use. -continue Cymbalta - continue exercise as tolerated at her [employer] Assessment & Plan (05/24/2022 12:12 PM EST): Not controlled. Likely exacerbated by untreated depression complicated by poor follow though with treatment and plan. No MARTIN. Tika has difficulty distinguishing between noxious stimulus, suffering and psychosocial factors. She also seems to have a low pain threshold, possibly due to previous narcotic use. I continue to decline prescribing chronic narcotics, including Tramadol which were prescribed by multiple providers in the past for multiple reasons. No improvement with gabapentin. Lyrica was as not covered. + Utox in ER but guarded about use. -continue Cymbalta - continue exercise as tolerated at her gym, [employer] Cobalamin deficiency 01/13/2012 Dyslipidemia 01/13/2012 Overview (05/16/2024): Lab Results Component Value Date TRIG 106 06/08/2022 -continue lifestyle modification -ordered FLP and HFP 05/16/24 Assessment & Plan (05/16/2024 4:22 PM EST): Lab Results Component Value Date TRIG 106 06/08/2022 -continue lifestyle modification -ordered FLP and HFP 05/16/24 Assessment & Plan (03/30/2023 9:12 AM EST): Lab Results Component Value Date TRIG 106 06/08/2022 -continue lifestyle modifications Resolved Problems Problem Noted Date Diagnosed Date Resolved Date Headache, frequent episodic tension-type 03/30/2023 09/26/2023 Overview (03/30/2023): likely sequela of fibromyalgia given severity of symptoms neuro referral placed 03/30/23 Assessment & Plan (03/30/2023 10:15 AM EST): likely sequela of fibromyalgia given severity of symptoms neuro referral placed 03/30/23 Episodic memory loss 03/30/2023 024 Overview (03/30/2023): likely sequela of fibromyalgia given severity of symptoms neuro referral placed 03/30/23 Assessment & Plan (03/30/2023 10:15 AM EST): likely sequela of fibromyalgia given severity of symptoms neuro referral placed 03/30/23 COVID 12/10/2022 03/29/2023 Assessment & Plan (12/10/2022 3:39 PM EDT): Paxlovid script written for full dose, given normal kidney function ER warning precautions Continue to monitor O2 saturations daily supportive care with steam, lozenges, honey, Tylenol/Motrin Menopause 05/26/2022 03/29/2023 Assessment & Plan (05/26/2022 11:46 AM EST): Not able to sleep from hot flashes, symtoms interfer with functioning. Risk of heart attack, possible increase risk of cancer and blood clots. She would like to pursue hormone therapy and agrees to do lowest dose for least amount of time. Hyperthyroidism 05/24/2022 05/26/2022 Blurry vision 05/24/2022 09/26/2023 Depressive disorder 10/14/2014 03/29/20 23 Knee pain 02/03/2012 09/26/2023 Anemia 01/13/2012 05/16/2024 Acute non-ST segment elevati on myocardial infarction 01/13/2012 03/29/2023 Encounters Date Type Department Care Team Description 07/06/2024 Population Health Risk Score [facility] () Department [address] [address] Provider, Population Health Generic 07/04/2024 Telephone [facility] [address] [place] [id number] Mallory Sprague MD Prior Authorization ( SOFI Request: Zepbound) 07/02/2024 11:15 AM EDT Telemedicine [address] [address] Mallory Sprague MD BMI 37.0-37.9, adult (Primary Dx); Dietary counseling; Exercise counseling; History of non-ST elevation myocardial infarction (NSTEMI) 07/02/2024 Travel 06/19/2024 Refill [facility] [address] [place] [id number] Mallory Sprague MD Other specified hypothyroidism; Chronic constipation 05/16/2024 4:00 PM EST Office Visit [address] [id number] Mallory Sprague MD Fibromyalgia (Primary Dx); Thyroid nodule; Other specified hypothyroidism; History of non-ST elevation myocardial infarction (NSTEMI); Anemia, unspecified type; Iron deficiency anemia, unspecified iron deficiency anemia type; Chronic midline low back pain without sciatica; Left knee pain, unspecified chronicity; Dyslipidemia; Moderate major depression (CMS/HCC); Dietary counseling; Exercise counseling; BMI 37.0-37.9, adult; Encounter for screening mammogram for malignant neoplasm of breast; Colon cancer screening; Encounter for immunization; Other specified health status; Seasonal allergies; History of gastric bypass; Screening mammogram for breast cancer; Chronic constipation 05/16/2024 Travel 05/15/2024 Telephone [facility] [address] [place], [place] [phone] Lydia Heath MA chartprep 05/01/2024 Refill [facility] [address] [place] [address] Mallory Sprague MD Other specified hypothyroidism from Last 3 Months Immunizations Name Administration Dates Next Due DTaP 03/21/1984, 9,11/10/1978,10/13 Hep B, adult 06/10/2021,01/21/2010,02/22/2000 Influenza injectable quadriv alent IIV4 with preservative 01/23/2018,06/02/2017,04/15/2016 Influenza injectable quadriv alent preservative free 03/30/2023,05/26/2022,02/24/2022,06/10,05/08/2019,01/17/2019,03/07/2017 ,03/27/2015 Influenza, IIV3, injectable 03/09/2021, 4,01/14/2011 Influenza, Split (incl. heather fied surface antigen) 12/29/2012,01/13/2012 Influenza, seasonal, injecta ble, preservative free 05/16/2024,02/20/2016 MMR 01/21/2010,10/13/1977 Moderna Covid-19 Vaccine 12+ 05/26/2022, 06/23/2021,06/24/2020,07/22 OPV, Trivalent 03/21/1984, 9,11/10/1978,10/13 Pneumococcal Conjugate PCV 20 05/26/2022 Pneumococcal Polysaccharide PPSV23 02/20/2016 TD (adult), 2 Lf tetanus tox oid, preservative free, adsorbed 01/22/2000 Td (adult), 5 Lf tetanus tox oid, preservative free, adsorbed 09/11/2013 Tdap 05/16/2024,01/13/2012 Zoster, Recombinant 08/05/2023,04/01/2023 Family History Medical History Relation Name Comments Diabetes Mother Relation Name Status Comments Mother Social History Tobacco Use Types Packs/Day Years Used Date Smoking Tobacco: Never Smokeless Tobacco: Never Tobacco Cessation:Counseling Given: Not Answered Depression Answer Date Recorded Patient Health Questionnaire-9 Score 14 05/16/2024 Patient Health Questionnaire-9 Score 14 05/16/2024 Last PHQ-9: Questionnaire Data Not on file 0 05/16/2024 Housing Stability Answer Date Recorded What is your housing situation today? I have chang islas 05/16/[address] you li ve. Do you have problems with any of the following? None of the above 05/16/2024 Food Insecurity Answer Date Recorded Within the past 12 months, y ou worried that your food would run out before you got money to buy more: Never True 05/16/2024 Within the past 12 months,th e food you bought just didn't last and you didn't have enough money to get more: Never True Transportation Answer Date Recorded In the past 12 months, has l ack of transportation kept you from medical appts, meetings, work or from getting things needed for daily living? No 05/16/2024 Utilities Answer Date Recorded In the past 12 months, has t he electric, gas, oil or water company threatened to shut off services in your home? No 05/16/2024 Depression Answer Date Recorded Patient Health Questionnaire-2 Score 6 05/16/2024 Internet Access Answer Date Recorded Internet Access Q1 No 05/16/2024 Internet Access Q2 I do not want or need it 04/26 Comments Unknown Sex and Gender Information Value Date Recorded Sex Assigned at Female 02/22/2022 10:15 AM EDT Legal Sex Female 10:15 AM EDT Gender Identity Choose not to disclose 10:15 AM EDT Sexual Orientation Choose not to disclose 2021 10:15 AM EDT Last Filed Vital Signs Vital Sign Reading Time Taken Comments Blood Pressure 120/80 05/16/2024 4:07 PM EST Pulse 84 05/16/2024 3:45 PM EST Temperature 36.4 ??C (97.6 ??F) 05/16/2024 3:45 PM ES T Respiratory Rate 20 05/16/2024 3:45 PM EST Oxygen Saturation 96% 05/16/2024 3:45 PM EST Inhaled Oxygen Concentration - - Weight 93.4 kg (206 lb) 05/16/2024 3:45 PM EST Height 157.5 cm (5' 2 ) 05/16/2024 3:45 PM EST Body Mass Index 37.68 05/16/2024 3:45 PM EST Plan of Treatment Health Maintenance Due Date Last Done Comments CT Colonography 1972 Colonoscopy 1972 FIT DNA/Cologuard 1972 FIT 1970 Sigmoidoscopy 1970 Colorectal Cancer Screening 07/11/2020 FOBT 07/11/2020 07/12/2019 Depression Monitoring (PHQ-9) 11/13/2024 05/16/2024, 05/16/2024 Mammogram 01/24/2025 01/24/2023, 06/23, 08/30/2017 Alcohol/Substance Use Screening 05/16/2025 05/16/2024 COVID-19 Vaccine ( season) 2025 05/26/2022, 06/23/2021, 06/24/2020, Additional history exists Postponed from 12/25/2023 (Patient Refused) Depression Screening 05/16/2025 05/16/2024, 05/16/19 Family Planning (PISQ) 05/16/2025 05/16/2024 SDOH Screening 05/16/2025 05/16/2024 Tobacco Screening 05/16/2025 05/16/2024 DTaP/Tdap/Td Vaccines (9 - Td or Tdap) 05/16/2034 05/16/2024, 09/11/2013, 01/13/2012, Additional history exists RSV Patients and Patients Aged 60 years or older (1 - 1-dose 75+ series) 10/05/2047 IPV Vaccines Completed 03/21/1984, 12/25, 11/10/1978, Additional history exists Hepatitis B Vaccines Completed 06/10/2021, 01/21/2010, 02/22/2000 Cervical Cancer Screening Discontinued HPV/Cotest Discontinued 07/10/2021, 01/09/2016 Pap Smear Discontinued 07/10/2021, 07/10/2021 Pneumococcal Vaccine: 50+ Years Completed 05/26/2022, 02/20/2016 HIV Screening Completed 06/08/2022 Hepatitis C Screening Completed 06/08/2022 Zoster Vaccines Completed 08/05/2023, 04/01/2023 Influenza Vaccine Completed 05/16/2024, , 05/26/2022, Additional history exists HIB Vaccines Aged Out No longer eligi ble based on patient's age to complete this topic HPV Vaccines Aged Out No longer eligi ble based on patient's age to complete this topic Hepatitis A Vaccines Aged Out No long er eligible based on patient's age to complete this topic Meningococcal Vaccine Aged Out No malinda randolph eligible based on patient's age to complete this topic RSV under 20 months Aged Out No longe r eligible based on patient's age to complete this topic Rotavirus Vaccines Aged Out No longer eligible based on patient's age to complete this topic Procedures Procedure Name Priority Date/Time Associated Diagnosis Comments BI US BREAST LIMITED LEFT Routine 01/24/2023 3:38 PM EDT HEPATITIS C AB W/REFL TO HCV RNA, QN, PCR Routine 06/08/2022 9:50 AM EST Seasonal allergies HIV 1/2 ANTIGEN/ANTIBODY, FOURTH GENERATION W/RFL Routine 06/08/2022 9:50 AM EST Seasonal allergies THINPREP IMAGING PAP AND HPV MRNA E6/E7, WITH CT/NG, TRICHOMONAS Routine 07/10/2021 11:50 AM EDT PAP SMEAR Routine 07/10/2021 12:00 AM EDT OCCULT BLOOD, FECAL, IMMUNOASSAY Routine 07/12/2019 5:08 AM EDT from Last 3 Months or Most Recently Relevant to Health Maintenance Results * BI US Breast Limited Left (01/24/2023 3:38 PM EDT) Anatomical Region Laterality Modality Breast Left Ultrasound 01/24/2023 3:38 PM EDT Narrative 01/24/2023 6:26 PM EDT ? [facility] ? [address] ?[place], [place] [address] ? Ultrasound Report ? Signed ? Patient: Tika Carcamo ?MR#: [id number] ?? [id number] ? : 1970 ?Acct:[id number] ? Age/Sex: 52 / F ?ADM Date: 01/24/23 ? Loc: HO.MAMMO ? Attending Dr: Del Devries MD ? Ordering Physician: Del Devries MD ?? Date of Service: 01/24/23 ?? Procedure(s): US breast LT limited mamm only ?? Accession Number(s): [id number] ? cc: Mallory Sprague MD; Del Devries MD ? EXAMINATION: ?? MM DIAGNOSTIC DIGITAL BREAST TOMOSYNTHESIS, BILATERAL ?? US BREAST LIMITED, LEFT ? MAMMOGRAPHY: ?? CLINICAL INFORMATION: ? Patient complaining of palpable focus of concern left breast at the ?? 4:00 axis, but can no longer feel. Bilateral silicone implants in ?? place. Patient also due for routine annual screening. ? COMPARISON: ?? Mammography: 06/11/2021, 08/29/2017, 07/30/2016, 06/05/2015, ?? 05/02/2014. ?? MRI breasts bilateral 10/20/2012. ? TECHNIQUE: ?? Digital mammography is performed in craniocaudal and mediolateral ?? oblique views. ??Digital breast tomosynthesis is performed in ?? implant-displaced craniocaudal and implant-displaced mediolateral ?? oblique views. Synthesized 2D images are generated from the ?? tomosynthesis. Computer-aided detection (CAD) is performed for this ?? exam. A second right implant displaced 3-D MLO view was included. ? FINDINGS: ?? There are scattered areas of fibroglandular density (ACR BI-RADS breast ?? composition Category b). ? There are bilateral silicone implants in place, without definite ?? complication. There is a 1.0 cm calcification abutting the mid to ?? inferior left lateral silicone implant, likely within the ?? pseudocapsule, which may be what the patient repeatedly is feeling. In ?? reviewing the prior MRI, this could also be seen in the left breast in ?? a cleft within the left implant. The patient may be feeling this ?? calcification on the surface of the implant and moving it around. ? Otherwise, There are no suspicious masses, suspicious grouped ?? calcifications, or areas of architectural distortion. The parenchymal ?? pattern is stable from prior exams. ? ULTRASOUND: ?? CLINICAL INFORMATION: ?? As above. ? COMPARISON: ?? None contributory. ? TECHNIQUE: ?? Targeted sonographic evaluation left breast was performed using a high ?? frequency linear transducer. The patient could not currently locate the ?? palpable focus, some of the breast was scanned spanning the 1:00 to ?? 6:00 locations. Selected archived documentation. ? FINDINGS: ? LEFT BREAST: There is a mixture of fatty and fibroglandular tissue. ??No ?? suspicious mass is seen. ??There is no pathologic acoustic shadowing. ?? There is a macrocalcification abutting the fibrous capsule of the left ?? implant seen on ultrasound series 1, image 1 of 10. This is likely the ?? source of the palpable focus. ? Otherwise, no additional abnormalities seen. The implants have a ?? somewhat wavy contour but are otherwise normal. ? US/US breast LT limited mamm only ?? IMPRESSION: ?? 1.0 cm macrocalcification on the surface of the left silicone implant, ?? most likely accounting for the area of palpable concern, of which the ?? patient is may be palpating and moving into different locations. This ?? can be seen on prior exams and the prior MRI. ? Otherwise, no findings suspicious for malignancy in either breast. No ?? additional explanation for palpable focus left breast at the 4:00 axis. ?? No evidence of implant rupture. ? In light of these findings, recommend continued clinical management. ? Otherwise, recommend return to routine mammographic screening. ? OVERALL ASSESSMENT: ?? Mammography: BI-RADS 2 - Benign Findings ?? Ultrasound: BI-RADS 2 - Benign Findings ? RECOMMENDATION: ?? 1. Patient should be managed based on the clinical impression. ?? Decision to proceed with biopsy should be based on clinical grounds and ?? degree of clinical concern. ? 2. Otherwise, routine annual screening mammography. ? This patient's information was entered into a reminder system with a ?? target due date for their next mammogram. ? Dictated By: ?Yoel Bang MD ? Signed By: ?<Electronically signed by Yoel Bang MD in OV> ?01/24/23 1821 ? DD/ 1538 ? TD/TT: ? Correctional Officer Sergeant: ? Procedure Note Dontomasariannater, Image - 01/24/2023 [facility] [address] [place] [address] Ultrasound Report Signed Patient: Tika Carcamo LMR#: [id number] : 1970Acct:[id number] Age/Sex: 52 / FADM Date: 01/24/23 Loc: HO.MAMMO Attending Dr: Del Devries MD Ordering Physician: Del Devries MD Date of Service: 01/24/23 Procedure(s): US breast LT limited mamm only Accession Number(s): [id number] cc: Mallory Sprague MD; Del Devries MD EXAMINATION: MM DIAGNOSTIC DIGITAL BREAST TOMOSYNTHESIS, BILATERAL US BREAST LIMITED, LEFT MAMMOGRAPHY: CLINICAL INFORMATION: Patient complaining of palpable focus of concern left breast at the 4:00 axis, but can no longer feel. Bilateral silicone implants in place. Patient also due for routine annual screening. COMPARISON: Mammography: 06/11/2021, 08/29/2017, 07/30/2016, 06/05/2015, 05/02/2014. MRI breasts bilateral 10/20/2012. TECHNIQUE: Digital mammography is performed in craniocaudal and mediolateral oblique views. Digital breast tomosynthesis is performed in implant-displaced craniocaudal and implant-displaced mediolateral oblique views. Synthesized 2D images are generated from the tomosynthesis. Computer-aided detection (CAD) is performed for this exam. A second right implant displaced 3-D MLO view was included. FINDINGS: There are scattered areas of fibroglandular density (ACR BI-RADS breast composition Category b). There are bilateral silicone implants in place, without definite complication. There is a 1.0 cm calcification abutting the mid to inferior left lateral silicone implant, likely within the pseudocapsule, which may be what the patient repeatedly is feeling. In reviewing the prior MRI, this could also be seen in the left breast in a cleft within the left implant. The patient may be feeling this calcification on the surface of the implant and moving it around. Otherwise, There are no suspicious masses, suspicious grouped calcifications, or areas of architectural distortion. The parenchymal pattern is stable from prior exams. ULTRASOUND: CLINICAL INFORMATION: As above. COMPARISON: None contributory. TECHNIQUE: Targeted sonographic evaluation left breast was performed using a high frequency linear transducer. The patient could not currently locate the palpable focus, some of the breast was scanned spanning the 1:00 to 6:00 locations. Selected archived documentation. FINDINGS: LEFT BREAST: There is a mixture of fatty and fibroglandular tissue. No suspicious mass is seen. There is no pathologic acoustic shadowing. There is a macrocalcification abutting the fibrous capsule of the left implant seen on ultrasound series 1, image 1 of 10. This is likely the source of the palpable focus. Otherwise, no additional abnormalities seen. The implants have a somewhat wavy contour but are otherwise normal. US/US breast LT limited mamm only IMPRESSION: 1.0 cm macrocalcification on the surface of the left silicone implant, most likely accounting for the area of palpable concern, of which the patient is may be palpating and moving into different locations. This can be seen on prior exams and the prior MRI. Otherwise, no findings suspicious for malignancy in either breast. No additional explanation for palpable focus left breast at the 4:00 axis. No evidence of implant rupture. In light of these findings, recommend continued clinical management. Otherwise, recommend return to routine mammographic screening. OVERALL ASSESSMENT: Mammography: BI-RADS 2 - Benign Findings Ultrasound: BI-RADS 2 - Benign Findings RECOMMENDATION: 1. Patient should be managed based on the clinical impression. Decision to proceed with biopsy should be based on clinical grounds and degree of clinical concern. 2. Otherwise, routine annual screening mammography. This patient's information was entered into a reminder system with a target due date for their next mammogram. Dictated By: Yoel Bang MD Signed By: <Electronically signed by Yoel Bang MD in OV> 01/24/23 1821 DD/ 1538 TD/TT: Correctional Officer Sergeant: [facility] External Provider IMG US PROCEDURES Final Result * Hepatitis C Antibody with Reflex to HCV, RNA, Quantitative, Real-Time PCR (06/08/2022 9:50 AM EST) Hepatitis C Antibody NON-REACT YAMILET NON-REACT YAMILET [facility] [place] [employer] Index 0.03 <1.00 [facility] Comment: HCV antibody was non-reactive. There is no laboratory evidence of HCV infection. In most cases, no further action is required. However, if recent HCV exposure is suspected, a test for HCV RNA (test code 53004) is suggested. For additional information please refer to http://education.[employer]/faq/QXJ41n9 (This link is being provided for informational/ educational purposes only.) Blood Venous blood specimen / Unknown 06/08/2022 9:50 AM EST 06/08/2022 9:51 AM EST Narrative [facility] - 06/11/2022 2:03 PM EST FASTING:YES FASTING: YES Result [facility] Mallory Sprague MD LAB BLOOD ORDERABLES Final Result [facility] [address] [facility], [place] [address] [facility] [place] [facility] [address] [facility], ([address]) [place] [address] * HIV-1/2 Antigen and Antibodies, Fourth Generation, with Reflexes (06/08/2022 9:50 AM EST) HIV Antigen/Antibody, 4th Generation NON-REAC TIVE NON-REAC TIVE [facility] [place] [facility] Comment: HIV-1 antigen and HIV-1/HIV-2 antibodies were not detected. There is no laboratory evidence of HIV infection. PLEASE NOTE: This information has been disclosed to you from records whose confidentiality may be protected by state law. ??If your state requires such protection, then the state law prohibits you from making any further disclosure of the information without the specific written consent of the person to whom it pertains, or as otherwise permitted by law. A general authorization for the release of medical or other information is NOT sufficient for this purpose. ?? For additional information please refer to http://[employer].co.[employer]/faq/AOO179 (This link is being provided for informational/ educational purposes only.) The performance of this assay has not been clinically validated in patients less than 2 years old. Blood Venous blood specimen / Unknown 06/08/2022 9:50 AM EST 06/08/2022 9:51 AM EST Narrative [facility] - 06/11/2022 2:03 PM EST FASTING:YES FASTING: YES Mallory Sprague MD LAB BLOOD ORDERABLES Final Result [facility] [address], [place] [address] [facility] [place] [employer] [address] [facility], ([address]) [place] [address] * THINPREP TIS PAP AND HPV mRNA E6/E7, CT/NG, TRICH (07/10/2021 11:50 AM EDT) Chlamydia trachomatis RNA, TMA, Urogenital NOT DETECTED NOT DETECTED [facility] Clinical Information: None given [facility] COMMENT SEE COMMENT [facility] Comment: The analytical performance characteristics of this assay, when used to test SurePath(TM) specimens have been determined by [facility]. The modifications have not been cleared or approved by the FDA. This assay has been validated pursuant to the CLIA regulations and is used for clinical purposes. ?? For additional information, please refer to https://Adhesive.co.[employer]/faq/OJG966 (This link is being provided for information/ educational purposes only.) ?? COMMENT SEE COMMENT [facility] Comment: EXPLANATORY NOTE: ? The Pap is a screening test for cervical cancer. It is ?? not a diagnostic test and is subject to false negative ?? and false positive results. It is most reliable when a ?? satisfactory sample, regularly obtained, is submitted ?? with relevant clinical findings and history, and when ?? the Pap result is evaluated along with historic and ?? current clinical information. ?? COMMENT: This Pap test has been evaluated with computer assisted technology. [employer] [facility] Law Reporter: SEE COMMENT [facility] Comment: CMG, CT(ASCP) CT screening location: [address] ??[address] HPV nRNA E6/E7 Not Detected Not Detected [employer] [facility] Comment: Methodology: Folder Tier-Mediated Amplification This assay detects E6/E7 viral messenger RNA (mRNA) from 14 high-risk HPV types (16,18,31,33,35,39,45,51,52,56,58,59,66,68). ? The analytical performance characteristics of this assay have been determined by [employer]. The modifications have not been cleared or approved by the FDA. This assay has been validated pursuant to the CLIA regulations and is used for clinical purposes. ?? For additional information, please refer to http://[employer]/faq/ICC673f7 (This link if provided for information/ educational purposes only.) Interpretation/Res ult: SEE COMMENT [facility] Comment: Negative for intraepithelial lesion or malignancy. Atrophic pattern; predominantly parabasal cells LMP: NONE GIVEN [facility] Neisseria gonorrhoeae RNA, TMA, Urogenital NOT DETECTED NOT DETECTED [facility] Prev. BX: NONE [facility] Prev. PAP: NONE [facility] SOURCE: None given [facility] Statement Of Adequacy: SATISFACTORY FOR EVALUATION [employer] [facility] Trichomonas vaginalis, QL, TMA, PAP Vial NOT DETECTED NOT DETECTED [employer] [facility] SYSTEM Comment: The analytical performance characteristics of this assay have been determined by [employer]. The modifications have not been cleared or approved by the FDA. This assay has been validated pursuant to the CLIA regulations and is used for clinical purposes. ?? For additional information, please refer to http://education.[employer]/ faq/Trichomonastma (This link is being provided for information/ educational purposes only.) ?? 07/10/2021 11:5 0 AM EDT Mallory Sprague MD LAB PATHOLOGY ORDERABLES F inal Result Performing Organization Address [facility]/ZIP Co de Phone Number [facility] [address] * Pap Smear (07/10/2021 12:00 AM EDT) Swab Historical Provider LAB CYTOLOGY ORDERABLES F inal Result Performing Organization Address City/[facility] Co de Phone Number IMAGING * OCCULT BLOOD STOOL (07/12/2019 5:08 AM EDT) OCCULT BLOOD STOOL NEG NEG [facility] 07/12/2019 5:08 AM EDT Historical Provider LAB BODY FLUIDS AND STOOL S ORDERABLES Final Result Performing Organization Address City/[facility]/ZIP Co de Phone Number [facility] [address] from Last 3 Months or Most Recently Relevant to Health Maintenance Insurance [facility] C3 Care Teams Community Center Worker Relationship Specialty Start Date End Date [place], [place] Mallory [address] [place], [place] PCP - General Family Medicine 04/25/18 Mahendra Schilling MD [address] [place], [place] Cardiology 05/16/24 Ness Chauhan DO [address] [place] [phone] Orthopaedic Surgery 05/16/24 Dr. Duran [facility] Psychiatry 05/16/24
--- OUTSIDE RECORDS SUMMARY | 2024-07-24 11:00 | XMS_ITS | Encounter Summary ---
Author Organization [employer] [facility] Address [address] [place] [address] 7t [place] [address] Care Team Providers Care Meter/Relay Craftsman Name Role Phone Mallory Sprague MD Primary Care Provider [phone] Mahendra Schilling MD Unavailable [phone] Ness Chauhan DO Unavailable [phone] Encounter Details Date Type Department Care Team (Late st Contact Info) Description 06/22/2022 Abstract [facility] MEDICINE [address] [place] [address] Mallory Sprague MD [address] [place] [address] Social History Tobacco Use Types Packs/Day Years [...] not to disclose 2021 10:15 AM EDT COVID-19 Exposure Response Date Recorded In the last 10 days, have yo u been in contact with someone who was confirmed or suspected to have Coronavirus/COVID-19? No / Unsure 05/26/2022 10:39 AM EST documented as of this encounter Plan of Treatment Not on file documented as of this encounter Visit Diagnoses Not on filedocumented in this encounter Additional Health Concerns Assessment Noted Time PHQ-9 Depression Total Score: 0 05/26/19 23 10:56 AM EST documented as of this encounter Care Teams Meter/Relay Craftsman Relationship Specialty Start Date End Date Mallory Sprague MD [address] [place] [address] PCP - General Family Medicine 04/25/18 Mahendra Schilling MD [address] [place] [address] Cardiology 05/16/24 Ness Chauhan DO [address] [place] [phone] Orthopaedic Surgery 05/16/24 Dr. Roger Fajardo [facility] Psychiatry 05/16/24 documented as of this encounter
--- OUTSIDE RECORDS SUMMARY | 2024-07-24 11:00 | XMS_ITS | Encounter Summary ---
Author Organization [employer] Address [address] [facility] 7t [place] [address] Care Team Providers Care Router Operator Name Role Phone Mallory Sprague MD Primary Care Provider [phone]- [phone] Mahendra Schilling MD Unavailable [phone] Ness Chauhan DO Unavailable [phone] Reason for Visit * Reason Onset Date Comments Med Refill 02/18/2023 Encounter Details Date Type Department Care Team ([facility] st Contact Info) Description 02/18/2023 Telephone [facility] MEDICINE [address] [place], [place] [phone] Mallory Sprague MD [address] [place], [place] [phone] Med Refill Social History Tobacco Use Types Packs/Day Years Used Date Smoking Tobacco: Never Smokeless Tobacco: Never Depression Answer Date Recorded Patient Health Questionnaire-9 Score 0 05/26/2022 Housing Stability Answer Date Recorded What is your housing situation today? I have chang islas 02/16/[address] you li ve. Do you have problems with any of the following? None of the above 02/16/2023 Food Insecurity Answer Date Recorded Within the past 12 months, y ou worried that your food would run out before you got money to buy more: Never True 02/16/2023 Within the past 12 months,th e food you bought just didn't last and you didn't have enough money to get more: Never True Transportation Answer Date Recorded In the past 12 months, has l ack of transportation kept you from medical appts, meetings, work or from getting things needed for daily living? No 02/16/2023 Utilities Answer Date Recorded In the past 12 months, has t he electric, gas, oil or water company threatened to shut off services in your home? No 02/16/2023 Depression Answer Date Recorded Patient Health Questionnaire-2 Score 0 05/26/2022 Comments Unknown Sex and Gender Information Value Date Recorded Sex Assigned at Female 02/22/2022 10:15 AM EDT Legal Sex Female 10:15 AM EDT Gender Identity Choose not to disclose 10:15 AM EDT Sexual Orientation Choose not to disclose 2021 10:15 AM EDT documented as of this encounter Miscellaneous Notes * Telephone Encounter - Nelly Car LPN - 02/18/2023 11:01 AM EDT Cymbalta is prescribed by Ness Chauhan and Levothyroxine has been pended to provider. * Telephone Encounter - Laendra Segundo - 02/18/2023 10:55 AM EDT Tc from pt requesting med refill on; DULoxetine (Cymbalta) [address] capsule levothyroxine (Synthroid, Levoxyl) 150 MCG tablet documented in this encounter Plan of Treatment Not on file documented as of this encounter Visit Diagnoses Not on filedocumented in this encounter Additional Health Concerns Assessment Noted Time PHQ-9 Depression Total Score: 0 05/26/19 23 10:56 AM EST documented as of this encounter Care Teams Router Operator Relationship Specialty Start Date End Date Mallory Sprague MD [address] [place] [address] PCP - General Family Medicine 04/25/18 Mahendra Schilling MD [address] [place] [address] Cardiology 05/16/24 Ness Chauhan DO [address] [place] [phone] Orthopaedic Surgery 05/16/24 Dr. Duran [facility] Psychiatry 05/16/24 documented as of this encounter
--- OUTSIDE RECORDS SUMMARY | 2024-07-24 11:00 | XMS_ITS | Encounter Summary ---
Author Organization [employer] Address 75 [facility] 7t [place] [address] Care Team Providers Care Psych Coordinator Name Role Phone Mallory Sprague MD Primary Care Provider [phone] Mahendra Schilling MD Unavailable [phone] Ness Chauhan DO Unavailable [phone] Reason for Visit * Reason Comments Med Refill Encounter Details Date Type Department Care Team (Late st Contact Info) Description 06/19/2024 Refill [facility] MEDICINE [address] [place] [address] Mallory Sprague MD [address] [place], [place] [phone] Other specified hypothyroidism; Chronic constipation Social History Tobacco Use Types Packs/Day Years [...] encounter Miscellaneous Notes * Telephone Encounter - Mallory Sprague MD - 07/02/2024 11:09 AM EDT Ep bound was sent 05/16/24 with the contraindications to phentermine. Pt has not heard.Do you know if this was denied or if PA was done? Can you please let the pt know as well. I will do a PA if needed. Thank you. documented in this encounter Plan of Treatment Not on file documented as of this encounter Visit Diagnoses Diagnosis Other specified hypothyroidism Chronic constipation Unspecified constipation documented in this encounter Additional Health Concerns Assessment Noted Time PHQ-9 Depression Total Score: 14 025 3:48 PM EST documented as of this encounter Care Teams Psych Coordinator Relationship Specialty Start Date End Date Mallory Sprague MD [address] [place] [address] PCP - General Family Medicine 04/25/18 Mahendra Schilling MD [address] [place] [address] Cardiology 05/16/24 Ness Chauhan DO [address] [place] [phone] Orthopaedic Surgery 05/16/24 Dr. Duran [facility] Psychiatry 05/16/24 documented as of this encounter
[2024-07-24 11:27] LABS: MANUAL DIFF FLAG NO
[2024-07-24 11:32] LABS: Eosinophils Absolute Auto 0.1 X10*3/uL (0.0-0.4); Eosinophils Percent Auto 1.7 % (0-4); Hematocrit 35.7 % (37.0-47.0); Hemoglobin 11.1 g/dl (12.0-16.0); Imm Gran Abs Auto 0.01 X10*3/uL (0.00-0.03); Imm Gran Pct Auto 0.2 % (0.0-0.4); Lymphocytes Absolute Auto 1.4 X10*3/uL (1.2-4.9); Lymphocytes Percent Auto 34.4 % (20-40); Mean Corpuscular HGB Conc 31.1 g/dl (31.0-35.0); Mean Corpuscular Hemoglobin 31.2 pg (27.0-33.0); Mean Corpuscular Volume 100.3 fL (80.0-98.0); Mean Platelet Volume 9.8 fL (9.4-12.3); Monocytes Absolute Auto 0.5 X10*3/uL (0.1-1.2); Monocytes Percent Auto 12.6 % (2-11); Neutrophils Percent Auto 50.1 % (45-73); Platelet Count 318 X10*3/uL (160-400); Red Blood Count 3.56 X10*6/uL (4.20-5.50); Red Cell Distribution Width 13.7 % (11.0-16.0)
[2024-07-24 11:45] LABS: Estimated Average Glucose 94 mg/dL; Hemoglobin A1C 91.6565 umol/L; Hemoglobin A1c % 4.9 % (<6.0)
[2024-07-24 12:07] LABS: Alanine Aminotransferase 14 U/L (0-31); Albumin Level 4.2 g/dL (3.5-5.0); Alkaline Phosphatase 95 U/L (39-117); Anion Gap 9 (12-20); Aspartate Amino Transferase 20 U/L (5-31); Bilirubin Direct 0.1 mg/dL (0.0-0.5); Bilirubin Total 0.3 mg/dL (0.0-1.0); Blood Urea Nitrogen 15 mg/dL (9-16); Carbon Dioxide 23 mmol/L (22-29); Chloride 113 mmol/L (96-108); Cholesterol 209 mg/dL (<200); Estimated Glomerular Filt Rate > 60; Ferritin 51 ng/mL (10-250); Glucose Random 80 mg/dL (60-115); HDL Cholesterol 66 mg/dL (>40); LDL Cholesterol Calculated 126 mg/dL (<100); Potassium 4.1 mmol/L (3.3-5.1); Sodium 141 mmol/L (135-145); TSH reflex Free T4 30.01 uIU/mL (0.32-4.0); Total Protein 6.7 g/dL (6.5-8.0); Triglycerides 88 mg/dL (<150)
[2024-07-24 12:09] LABS: Vitamin B12 400 pg/mL (200-900)
[2024-07-24 12:37] LABS: Free T4 (Free Thyroxine) 1.08 ng/dL (0.71-1.85)
== END 2024-07-24 09:39 | disposition home or self-care (01) ==
LOC: HO.HHCL 09:38
PROVIDERS: Visit Provider Family Medicine
DX: E04.1 Nontoxic single thyroid nodule (principal); Z98.84 Bariatric surgery status; Z68.37 Body mass index [BMI] 37.0-37.9, adult
CPT/HCPCS: 36415; 80048; 80061; 80076; 82607; 82728; 83036; 84439; 84443; 85025

== ENCOUNTER → 2024-07-27 15:00 | Outpatient (BNV) | payer MEDICAID, SELFPAY | PROVIDERS: PCP Family Medicine; Visit Provider Internal Medicine | DX: Z12.31 Encounter for screening mammogram for malignant neoplasm of breast (principal) | CPT/HCPCS: 77063; 77067 ==

== ENCOUNTER 2024-07-27 15:05 | Outpatient (REF) | payer MEDICAID, SELFPAY ==
--- OUTSIDE RECORDS SUMMARY | 2024-07-27 16:27 | XMS_ITS | Encounter Summary ---
Author Organization [employer] Address [address] [facility] [address] 7t [place] [address] Care Team Providers Care Software Engineering Analyst Name Role Phone Mallory Sprague MD Primary Care Provider [phone] Mahendra Schilling MD Unavailable [phone] Ness Chauhan DO Unavailable [phone] Encounter Details Date Type Department Care Team (Late st Contact Info) Description 07/24/2024 Orders Only [facility] MEDICINE [address] [place] [address] Mallory Sprague MD [address] [place] [address] Social History Tobacco Use Types Packs/Day Years [...] on file documented as of this encounter Procedures Procedure Name Priority Date/Time Associated Diagnosis Comments T4, FREE Routine 07/24/2024 9:42 AM EDT documented in this encounter Results * T4, Free (07/24/2024 9:42 AM EDT) Free T4 (Free Thyroxine) 1.08 0.71 - 1.85 ng/dL [facility] 07/24/2024 9:42 AM EDT 07/24/2024 11:16 AM EDT us Mallory Sprague MD LAB BLOOD ORDERABLES Final Result [facility] [address] [place] [address] [phone] documented in this encounter Visit Diagnoses Not on filedocumented in this encounter Additional Health Concerns Assessment Noted Time PHQ-9 Depression Total Score: 14 025 3:48 PM EST documented as of this encounter Care Teams Software Engineering Analyst Relationship Specialty Start Date End Date Mallory Sprague MD [address] [place] [address] PCP - General Family Medicine 04/25/18 Mahendra Schilling MD [address] [place] [address] Cardiology 05/16/24 Ness Chauhan DO [address] [place] [phone] Orthopaedic Surgery 05/16/24 Dr. Duran [facility] Psychiatry 05/16/24 documented as of this encounter
--- OUTSIDE RECORDS SUMMARY | 2024-07-27 16:27 | XMS_ITS | Encounter Summary ---
Author Organization [employer] Address [address] [facility] [address] 7t [place] [address] Care Team Providers Care Director Clinical Research Name Role Phone [place], Mallory BAILEY Primary Care Provider [phone] Mahendra Schilling MD Unavailable [phone] Ness Chauhan DO Unavailable [phone] Reason for Visit * Reason Onset Date Comments Results 07/25/2024 Encounter Details Date Type Department Care Team ([facility] st Contact Info) Description 07/25/2024 Telephone [facility] MEDICINE [address] [place] [address] Tiffany Stout, ARY Results Social History Tobacco Use Types Packs/Day Years [...] encounter Miscellaneous Notes * Telephone Encounter - Tiffany Stout RN - 07/25/2024 9:26 AM EDT TC placed to pt with BLS translator/interpreter #[id number] to inform of lab results below showing lower thyroid levels. The pt was advised to make sure she is taking this medication at the same time daily on an empty stomach. Pt agreeable to this plan and will have TSHFT4 labs repeated in four weeks time. ----- Message from Mallory Sprague MD sent at 07/24/2024 6:06 PM EDT ----- Please let Tika know her thyroid is very low. Please advise take med daily at same time on empty stomach. Repeat tsh in 4 weeks. Please make sure she is not taking any supplements with biotin that could affect lab result. Thank you. documented in this encounter Plan of Treatment Not on file documented as of this encounter Visit Diagnoses Not on filedocumented in this encounter Additional Health Concerns Assessment Noted Time PHQ-9 Depression Total Score: 14 025 3:48 PM EST documented as of this encounter Care Teams Director Clinical Research Relationship Specialty Start Date End Date Mallory Sprague MD [address] [place] [address] PCP - General Family Medicine 04/25/18 Mahendra Schilling MD [address] [place] [address] Cardiology 05/16/24 Ness Chauhan DO [address] [place] [phone] Orthopaedic Surgery 05/16/24 Dr. Roger Fajardo [facility] Psychiatry 05/16/24 documented as of this encounter
--- OUTSIDE RECORDS SUMMARY | 2024-07-27 16:27 | XMS_ITS | Encounter Summary ---
Author Organization [employer] Address [address] [facility] 7t [place] [address] Care Team Providers Care Switchgear Repairer Name Role Phone Mallory Sprague MD Primary Care Provider [phone] Mahendra Schilling MD Unavailable [phone] Ness Chauhan DO Unavailable [phone] Reason for Visit * Reason Comments Med Refill Encounter Details Date Type Department Care Team (Late st Contact Info) Description 06/19/2024 Refill [facility] MEDICINE [address] [place] [address] Mallory Sprague MD [address] [place], [place] [phone] Other specified hypothyroidism; Chronic constipation Social History [...] documented as of this encounter Care Teams Switchgear Repairer Relationship Specialty Start Date End Date Mallory Sprague MD [address] [place] [address] PCP - General Family Medicine 04/25/18 Mahendra Schilling MD [address] [place] [address] Cardiology 05/16/24 Ness Chauhan DO [address] [place] [phone] Orthopaedic Surgery 05/16/24 Dr. Duran [facility] Psychiatry 05/16/24 documented as of this encounter
--- OUTSIDE RECORDS SUMMARY | 2024-07-27 16:27 | XMS_ITS | Encounter Summary ---
Author Organization [employer] Address 75 [facility] 7t [place] [address] Care Team Providers Care Pearl Diver Name Role Phone Mallory Sprague MD Primary Care Provider [phone] Mahendra Schilling MD Unavailable [phone] Ness Chauhan DO Unavailable [phone] Reason for Visit * Reason Onset Date Comments Med Refill 02/18/2023 Encounter Details Date Type Department Care Team ([facility] st Contact Info) Description 02/18/2023 Telephone [facility] MEDICINE [address] [place], [place] [phone] Mallory Sprague MD [address] [place], [place] [phone] Med Refill Social History Tobacco Use Types [...] pended to provider. * Telephone Encounter - Leandra Segundo - 02/18/2023 10:55 AM EDT Tc [...] documented as of this encounter Care Teams Pearl Diver Relationship Specialty Start Date End Date Mallory Sprague MD [address] [place] [address] PCP - General Family Medicine 04/25/18 Mahendra Schilling MD [address] [place] [address] Cardiology 05/16/24 Ness Chauhan DO [address] [place] [phone] Orthopaedic Surgery 05/16/24 Dr. Duran [facility] Psychiatry 05/16/24 documented as of this encounter
--- OUTSIDE RECORDS SUMMARY | 2024-07-27 16:27 | XMS_ITS | Encounter Summary ---
Author Organization [employer] Address [address] [facility] [address] 7t [place] [address] Care Team Providers Care Forestry Foreman Name Role Phone Mallory Sprague MD Primary Care Provider [phone] Mahendra Schilling MD Unavailable [phone] Ness Chauhan DO Unavailable [phone] Encounter Details Date Type Department Care Team (Late st Contact Info) Description 07/24/2024 Orders Only [facility] MEDICINE [address] [place] [address] Mallory Sprague MD [address] [place] [address] Other specified hypothyroidism (Primary Dx) Social History Tobacco Use Types Packs/Day Years [...] as of this encounter Plan of Treatment Scheduled Orders Name Type Priority Associated Diagnoses Orde r Schedule TSH W/Reflex to FT4 Lab Routine Other specified hypothyroidism Expected: 07/24/2024 (Approximate), Expires: 07/24/2025 documented as of this encounter Visit Diagnoses Diagnosis Other specified hypothyroidism- Primary documented in this encounter Additional Health Concerns Assessment Noted Time PHQ-9 Depression Total Score: 14 025 3:48 PM EST documented as of this encounter Care Teams Forestry Foreman Relationship Specialty Start Date End Date Mallory Sprague MD [address] [place] [address] PCP - General Family Medicine 04/25/18 Mahendra Schilling MD [address] [place] [address] Cardiology 05/16/24 Ness Chauhan DO [address] [place] [phone] Orthopaedic Surgery 05/16/24 Dr. Duran [facility] Psychiatry 05/16/24 documented as of this encounter
--- OUTSIDE RECORDS SUMMARY | 2024-07-27 16:27 | XMS_ITS | Clinical Summary ---
Author Organization [employer] Address [address] [place] [address] [address] [place] [address] Care Team Providers Care News Clerk Name Role Phone Mallory Sprague MD Primary Care Provider [phone] Mahendra Schilling MD Unavailable [phone] Ness Chauhan DO Unavailable [phone] Allergies No known active allergies Medications lidocaine [...] mouth Once per day. Patient followed at [facility] with Dr. Petros Schilling DO. Active aspirin 81 MG EC tabletIndications: History of non-ST elevation myocardial infarction (NSTEMI) Take 81 mg by mouth Once per day. Patient followed at [facility] with Dr. Petros Schilling DO. [...] due after 05/16/25 -eye care facilitated by [facility] seen 07/2022 -[facility] care proxy given and filed 05/16/24 Assessment & Plan (05/16/2024 3:51 PM EST): -next comprehensive annual evaluation due after 05/16/25 -eye care facilitated by [facility] seen 07/2022 -dental home is [facility] care proxy given and filed 05/16/24 Colon [...] 06/08/2022 HEMATOCRIT 30.8 (L) 06/10/2021 -Followed by tip fixer, Dr. Devries -hematology note from 09/23/23 reviewed [...] to loose weight. She is followed by [facility] . Status post left knee surgery 05/24/2022 Assessment & Plan (05/24/2022 12:13 PM EST): Pt had surgery for left knee in [place] 01/2021 Right upper lobe pulmonary infiltrate 05/24/2022 Overview (03/29/2023): Patient reports she had a CT scan of the lungs in [place]. She reports this was done to evaluate for COVID and she was told she has spots on her lungs . The report in [facility] [place] says infiltrate in the posterior upper right [...] a CT scan of the lungs in [place]. She reports this was done to evaluate for COVID and she was told she has spots on her lungs . The report in [facility] [place] says infiltrate in the posterior upper right [...] a CT scan of the lungs in [place]. She reports this was done toe valuate for COVID and she was told she has spots on her lungs . The report in [facility] [place] says infiltrate in the posterior upper right lobe. Will check CT scan to evaluate for nodules. CTA done06/2019 after [place] reported No evidence of pulmonary embolism. Interval resolution of the previously seen airspace opacities within the lower lobes bilaterally. No aortic aneurysm or dissection. Left knee pain 05/24/2022 Overview (05/16/2024): - Pt was seen by [facility] 04/27/2022 for knee pain and she received an injection. -last note reviewed 07/2022 -Seen by [facility] on 02/16/24. Had bilateral knee steroid injections on 01/10/24 and again on 02/16/24. X-rays reviewed. Assessment & Plan (05/16/2024 4:03 PM EST): - Pt was seen by [facility] 04/27/2022 for knee pain and she received an injection. -last note reviewed 07/2022 -Seen by [facility] on 02/16/24. Had bilateral knee steroid injections on 01/10/24 and again on 02/16/24. X-rays reviewed. Assessment & Plan (03/30/2023 9:18 AM EST): - Pt was seen by [facility] 04/27/2022 for knee pain and she [...] with Dr. Chauhan on 08/12/21 -Seen by [facility] on 02/16/24. Underwent midline L5- S1 interlaminar epidural steroid injection on 01/30/24. Continues using Tramadol PRN for pain. Lumbar MRI reviewed. Assessment & Plan (05/16/2024 4:03 PM EST): - Followed by Orthopedics with Dr. Chauhan on 08/12/21 -Seen by [facility] on 02/16/24. Underwent midline L5- S1 [...] hospitalized 05/2011 for chest pain, ruled out MT with enzymes and EKGs, stress test recommended as outpatient. Pt saw Dr. Pardo but did not have stress test. Er precautions given. If concern for cardiac disease, [facility]. - continues on carvedilol and lasix but does not have formal Dx of hypertension - stress test on 04/08/2022 that was unremarkable with an EF of 54%. She was seen by cardiology 04/22/22 and echocardiogram was ordered. -echo 06/2022 unremarkable with EF 55-60% with Dr. Tam -Patient followed at [facility] with Dr. Petros Schilling DO. Note from 09/01/23 reviewed, no changes Assessment & Plan (07/02/2024 12:24 PM EDT): Pt saw Dr. Tam . Although pt is labeled with NSTEMI in 05/2010, coronary angiogram was normal. The rise of troponin, which was intermediate, is unclear. Continue to optimize risk factors. She was hospitalized 05/2011 for chest pain, ruled out MT with enzymes and EKGs, stress test recommended [...] 55-60% with Dr. Tam -Patient followed at [facility] with Dr. Petros Schilling DO. Note from 09/01/23 reviewed, no changes Assessment & Plan (05/16/2024 4:08 PM EST): Pt saw Dr. Tam . Although pt is labeled with NSTEMI in 05/2010, coronary angiogram was normal. The rise of troponin, which was intermediate, is unclear. Continue to optimize risk factors. She was hospitalized 05/2011 for chest pain, ruled out MT with enzymes and EKGs, stress test recommended as outpatient. Pt saw Dr. Pardo but did not have stress test. Er precautions given. If concern for cardiac disease, will refer [facility] for [facility] stress test. - continues on carvedilol and lasix but does not have formal Dx of hypertension - stress test on 04/08/2022 that was unremarkable with an EF of 54%. She was seen by cardiology 04/22/22 and echocardiogram was ordered. -echo 06/2022 unremarkable with EF 55-60% with Dr. Tam -Patient followed at [facility] with Dr. Petros Schilling DO. Note from 09/01/23 reviewed, no changes Assessment & Plan (03/30/2023 9:19 AM EST): Pt saw Dr. Tam . Although pt is labeled with NSTEMI in 05/2010, coronary angiogram was normal. The rise of troponin, which was intermediate, is unclear. Continue to optimize risk factors. She was hospitalized 05/2011 for chest pain, ruled out MT with enzymes and EKGs, stress test recommended as outpatient. Pt saw Dr. Pardo but did not have stress test. Er precautions given. If concern for cardiac disease, will refer [facility] for [facility] stress test. - continues [...] hospitalized 05/2011 for chest pain, ruled out MT with enzymes and EKGs, stress test recommended [...] medication. -denies SI/HI -follows with psychiatrist at [facility] Assessment & Plan (03/30/2023 9:17 AM EST): ->6 months depression with mixed anxiety, continue cymbalta -advised [facility] of medication. -denies SI/HI [facility]. Assessment & Plan (05/24/2022 12:11 PM EST): >6 months depression with mixed anxiety, continue cymbalta advised [facility] of medication. denies SI/HI referred to [facility] for psychotherapy. Fibromyalgia 06/10/2021 Overview [...] Cymbalta -continue exercise as tolerated at her [email or web address] Assessment & Plan (03/30/2023 9:18 AM [...] - continue exercise as tolerated at her [email or web address] Assessment & Plan (05/24/2022 12:12 PM [...] continue exercise as tolerated at her gym, [employer] Cobalamin deficiency 01/13/2012 Dyslipidemia 01/13/2012 Overview (05/16/2024): [...] Encounters Date Type Department Care Team Description 07/25/2024 Telephone [facility] [place] [address] Tiffany Stout, ARY Results 07/24/2024 Orders Only [facility] [place] [address] Mallory Sprague MD Other specified hypothyroidism (Primary Dx) 07/24/2024 Orders Only [facility] [place] [address] Mallory Sprague MD 07/06/2024 Population Health Risk Score [facility] Department [address] [place] [address] Provider, Population Health Generic 07/04/2024 Telephone [facility] [place] [address] Mallory Sprague MD Prior Authorization (MARY KAY FARAH Request: [employer]) 07/02/2024 11:15 AM EDT Telemedicine [facility] [place] [address] Mallory Sprague MD BMI 37.0-37.9, adult (Primary Dx); Dietary counseling; Exercise counseling; History of non-ST elevation myocardial infarction (NSTEMI) 07/02/2024 Travel 06/19/2024 Refill [facility] [address] [place] [phone] Mallory Sprague MD Other specified hypothyroidism; Chronic constipation 05/16/2024 4:00 PM EST Office Visit [facility] [address] [place] [phone] Mallory Sprague MD Fibromyalgia (Primary Dx); Thyroid [...] cancer; Chronic constipation 05/16/2024 Travel 05/15/2024 Telephone [facility] [address] [place] [address] [phone] Lydia Heath MA chartprep 05/01/[address] [address] Mallory Sprague MD Other specified hypothyroidism from [...] T4, FREE Routine 07/24/2024 9:42 AM EDT BASIC METABOLIC PANEL Routine 07/24/2024 9:42 AM EDT History of gastric bypass HEMOGLOBIN A1C Routine 07/24/2024 9:42 AM EDT BMI 37.0-37.9, adult LIPID PANEL, STANDARD Routine 07/24/2024 9:42 AM EDT History of gastric bypass HEPATIC FUNCTION PANEL Routine 07/24/2024 9:42 AM EDT BMI 37.0-37.9, adult History of gastric bypass VITAMIN B12 Routine 07/24/2024 9:42 AM EDT History of gastric bypass TSH W/REFLEX TO FT4 Routine 07/24/2024 9 :42 AM EDT Thyroid nodule FERRITIN Routine 07/24/2024 9:42 AM EDT History of gastric bypass CBC WITH AUTO DIFFERENTIAL Routine 07/24/2024 9:42 AM EDT History of gastric bypass BI US BREAST LIMITED LEFT Routine 01/24/2023 [...] Recently Relevant to Health Maintenance Results * (ABNORMAL) TSH with Reflex to Free T4 (07/24/2024 9:42 AM EDT) TSH reflex Free T4 30.01(H) 0.32 - 4.0 uIU/mL [facility] Blood 07/24/2024 9:42 AM EDT 07/24/2024 11:16 AM EDT us Mallory Sprague MD LAB BLOOD ORDERABLES Final Result [facility] [address], [place] [phone] * (ABNORMAL) CBC auto differential (07/24/2024 9:42 AM EDT) White Blood Count 4.0(L) 4.8 - 10.8 X10*3/uL [facility] Red Blood Count 3.56(L) 4.20 - 5.50 X10*6/uL [facility] Hemoglobin 11.1(L) 12.0 - 16.0 g/dl [facility] Hematocrit 35.7(L) 37.0 - 47.0 % [facility] Mean Corpuscular Volume 100.3(H) 80.0 - 98.0 fL [facility] Mean Corpuscular Hemoglobin 31.2 27.0 - 33.0 pg [facility] Mean Corpuscular HGB Conc 31.1 31.0 - 35.0 g/dl [facility] Red Cell Distribution Width 13.7 11.0 - 16.0 % [facility] Platelet Count 318 160 - 400 X10*3/uL [facility] Mean Platelet Volume 9.8 9.4 - 12.3 fL [facility] Neutrophils Percent Auto 50.1 45 - 73 % [facility] Imm Gran Pct Auto 0.2 0.0 - 0.4 % [facility] Lymphocytes Percent Auto 34.4 20 - 40 % [facility] Monocytes Percent Auto 12.6(H) 2 - 11 % [facility] Eosinophils Percent Auto 1.7 0 - 4 % [facility] Basophils Percent Auto 1.0 0 - 2 % [facility] NRBC Pct Auto 0.0 0.0 - 0.2 /100WBC [facility] Neutrophils Absolute Auto 2.0 2.0 - 8.3 x10*3/uL [facility] Imm Gran Abs Auto 0.01 0.00 - 0.03 X10*3/uL [facility] Lymphocytes Absolute Auto 1.4 1.2 - 4.9 X10*3/uL [facility] Monocytes Absolute Auto 0.5 0.1 - 1.2 X10*3/uL [facility] Eosinophils Absolute Auto 0.1 0.0 - 0.4 X10*3/uL [facility] Basophils Absolute Auto 0.0 0.0 - 0.2 X10*3/uL [facility] NRBC Abs Auto 0.000 0.0 - 0.012 X10*3/uL [facility] Blood Venous blood specimen / Unknown 07/24/2024 9:42 AM EDT 07/24/2024 11:21 AM EDT Mallory Sprague MD LAB BLOOD ORDERABLES Final Result [facility] [address] [place] [phone] * T4, Free (07/24/2024 9:42 AM EDT) Free T4 (Free Thyroxine) 1.08 0.71 - 1.85 ng/dL [facility] 07/24/2024 9:42 AM EDT 07/24/2024 11:16 AM EDT Mallory Sprague MD LAB BLOOD ORDERABLES Final Result [facility] [address] [place] [phone] * Hemoglobin A1c (07/24/2024 9:42 AM EDT) Hemoglobin A1c 4.9 <6.0 % [facility] Comment:Hemoglobin A1C Refer ence Range Adults: 4.8 - 6.0 % Non diabetic: < 6.0 % Goal: < 7.0 %Additional Action Suggested: > 8.0 %Note: Hemoglobin A1c results are invalid for patients with abnormal amounts of HbF. Blood transfusions may impact the HbA1c concentration in the patient sample. Estimated Average Glucose 94 mg/dL [facility] Comment:eAG = Estimated ave rage glucose which is %A1C expressed asaverage glucose, using the formula of the Z0V-KwlrhgaXskiayp Glucose study (ADAG), Diabetes Care, Vol.31,#8,2007 Blood Venous blood specimen / Unknown 07/24/2024 9:42 AM EDT 07/24/2024 11:21 AM EDT Mallory Sprague MD LAB BLOOD ORDERABLES Final Result Performing Organization Address [facility]/ZIP Co de Phone Number [facility] [address] [place] [phone] * Ferritin (07/24/2024 9:42 AM EDT) Ferritin 51 10 - 250 ng/mL [facility] Blood Venous blood specimen / Unknown 07/24/2024 9:42 AM EDT 07/24/2024 11:16 AM EDT Mallory Sprague MD LAB BLOOD ORDERABLES Final Result Performing Organization Address City/[facility]/ZIP Co de Phone Number [facility] [address] [place] [phone] * Vitamin B12 (07/24/2024 9:42 AM EDT) Vitamin B12 400 200 - 900 pg/mL [facility] Comment:NORMAL 200-900 PG/ML INDETERMINATE 160-199 PG/ML DEFICIENT < 160 PG/ML Blood Venous blood specimen / Unknown 07/24/2024 9:42 AM EDT 07/24/2024 11:21 AM EDT Mallory Sprague MD LAB BLOOD ORDERABLES Final Result Performing Organization Address City/[facility]/ZIP Co de Phone Number [facility] [address] [place] [phone] * Hepatic Function Panel (07/24/2024 9:42 AM EDT) Bilirubin, Total 0.3 0.0 - 1.0 mg/dL [facility] Bilirubin, Direct 0.1 0.0 - 0.5 mg/dL [facility] Aspartate Amino Transferase 20 5 - 31 U/L [facility] Alanine Aminotransferase 14 0 - 31 U/L [facility] Total Protein 6.7 6.5 - 8.0 g/dL [facility] Albumin Level 4.2 3.5 - 5.0 g/dL [facility] Alkaline Phosphatase 95 39 - 117 U/L [facility] Blood Venous blood specimen / Unknown 07/24/2024 9:42 AM EDT 07/24/2024 11:16 AM EDT Mallory Sprague MD LAB BLOOD ORDERABLES Final Result Performing Organization Address [facility] Co de Phone Number [facility] [address] [place] [phone] * (ABNORMAL) Lipid Panel, Standard (07/24/2024 9:42 AM EDT) Triglycerides 88 <150 mg/dL [facility] Comment:Desirable Triglyceri de: less than 150 mg/dLBorderline High Triglyceride 150-199 mg/dLHigh Triglyceride: 200-499 mg/dLVery High Triglyceride: greater than or equal to 5OO mg/dL Cholesterol 209(H) <200 mg/dL [facility] Comment:Desirable Cholestero l: less than 200 mg/dLBorderline High Cholesterol: 200-239 mg/dLHigh Cholesterol: greater than 239 mg/dL LDL Cholesterol Calculated 126(H) <100 mg/dL [facility] Comment:Desirable LDL: less than 100 mg/dLNear Optimal/Above Optimal LDL: 110- 129 mg/dLBorderline High LDL: 130-159 mg/dLHigh LDL: 160-189 mg/dLVery High LDL: greater than or equal to 190 mg/dL HDL Cholesterol 66 >40 mg/dL [facility] Comment:Desirable HDL: great er than 40 mg/dL Note: This HDL assay may give artificially low results in patients with liver disease. Blood Venous blood specimen / Unknown 07/24/2024 9:42 AM EDT 07/24/2024 11:16 AM EDT Mallory Sprague MD LAB BLOOD ORDERABLES Final Result [facility] [address] [place] [phone] * (ABNORMAL) Basic Metabolic Panel (07/24/2024 9:42 AM EDT) Sodium 141 135 - 145 mmol/L [facility] Potassium 4.1 3.3 - 5.1 mmol/L [facility] Chloride 113(H) 96 - 108 mmol/L [facility] Carbon Dioxide 23 22 - 29 mmol/L [facility] Anion Gap 9(L) 12 - 20 [facility] Urea Nitrogen (BUN) 15 9 - 16 mg/dL [facility] Creatinine, Serum 0.80 0.5 - 1.4 mg/dL [facility] Estimated Glomerular Filt Rate >60 [facility] Comment:Chronic Kidney Disea se: Estimated GFR < 60 mL/min/1.83o5Gkslrm Kidney Disease: Estimated GFR < 15 mL/min/1.73m2 Glucose 80 60 - 115 mg/dL [facility] Calcium 9.0 8.4 - 10.2 mg/dL [facility] Blood Venous blood specimen / Unknown 07/24/2024 9:42 AM EDT 07/24/2024 11:16 AM EDT Mallory Sprague MD LAB BLOOD ORDERABLES Final Result [facility] [address] [place] [phone] * BI US Breast Limited Left (01/24/2023 3:38 PM EDT) Anatomical Region Laterality Modality Breast Left Ultrasound 01/24/2023 3:38 PM EDT Narrative 01/24/2023 6:26 PM EDT ? [facility] [place] ? [address] ?[place] [phone] ? Ultrasound Report ? Signed ? Patient: Danny Poe,Alice ?MR#: [id number] ?? [id number] ? : 1970 ?Acct:[id number] ? Age/Sex: 52 / F ?ADM Date: 01/24/23 ? Loc: HO.MAMMO ? Attending Dr: Del Devries MD ? Ordering Physician: Del Devries MD ?? Date of Service: 01/24/23 ?? Procedure(s): US breast LT limited mamm only ?? Accession Number(s): [id number] ? cc: Mallory Sprague MD; Del Devries [...] signed by Yoel Bang MD in OV> ?10 1821 ? DD/ 1538 ? TD/TT: ? Bottle And Glass Inspector: ? Procedure Note Donotuseinterpreter, Image - 01/24/2023 [facility] [address] [place] [address] Ultrasound Report Signed Patient: Tika Carcamo LMR#: [id number] : 1970Acct:[id number] Age/Sex: 52 / FADM Date: 01/24/23 Loc: HO.MAMMO Attending Dr: Del Devries MD Ordering Physician: Del Devries MD Date of Service: 01/24/23 Procedure(s): US breast LT limited mamm only Accession Number(s): [id number] cc: Mallory Sprague MD; Del Devries MD [...] in OV> 01/24/23 1821 DD/ 1538 TD/TT: Bottle And Glass Inspector: [facility] External Provider IMG US PROCEDURES Final Result * Hepatitis C Antibody with Reflex to HCV, RNA, Quantitative, Real-Time PCR (06/08/2022 9:50 AM EST) Hepatitis C Antibody NON-REACT YAMILET NON-REACT YAMILET FIGS Index 0.03 <1.00 FIGS Comment: HCV antibody was non-reactive. There is no laboratory evidence of HCV infection. In most cases, no further action is required. However, if recent HCV exposure is suspected, a test for HCV RNA (test code 18676) is suggested. For additional information please refer to http://education.ThromboVision/faq/KLB57q6 (This link is being provided for informational/ educational purposes only.) Blood Venous blood specimen / Unknown 06/08/2022 9:50 AM EST 06/08/2022 9:51 AM EST Narrative [facility] - 06/11/2022 2:03 PM EST FASTING:YES FASTING: YES Result [facility] Mallory Sprague MD LAB BLOOD ORDERABLES Final Result [facility] [address] [facility], [place] [phone] [employer] [place] [employer] [address] [facility], ([address]) [place] [phone] * HIV-1/2 Antigen and Antibodies, Fourth Generation, with Reflexes (06/08/2022 9:50 AM EST) HIV Antigen/Antibody, 4th Generation NON-REAC TIVE NON-REAC TIVE [employer] [place] [employer] Comment: HIV-1 antigen and HIV-1/HIV-2 antibodies were [...] ?? For additional information please refer to http://[employer].ThromboVision/faq/QVR303 (This link is being provided for informational/ educational purposes only.) The performance of this assay has not been clinically validated in patients less than 2 years old. Blood Venous blood specimen / Unknown 06/08/2022 9:50 AM EST 06/08/2022 9:51 AM EST Narrative [facility] - 06/11/2022 2:03 PM EST FASTING:YES FASTING: YES Mallory Sprague MD LAB BLOOD ORDERABLES Final Result [facility] [address], [place] [phone] [employer] [place] [employer] [address] , ([address]) [place] [address] * THINPREP TIS PAP AND HPV mRNA E6/E7, CT/NG, TRICH (07/10/2021 11:50 AM EDT) Chlamydia trachomatis RNA, TMA, Urogenital NOT DETECTED NOT DETECTED [facility] Clinical Information: None given [facility] COMMENT SEE COMMENT [facility] Comment: The analytical performance characteristics of this assay, when used to test SurePath(TM) specimens have been determined by [employer]. The modifications have not been cleared or approved by the FDA. This assay has been validated pursuant to the CLIA regulations and is used for clinical purposes. ?? For additional information, please refer to https://[employer].ThromboVision/faq/EFE663 (This link is being provided for information/ [...] has been evaluated with computer assisted technology. [facility] Connie Cleaner: SEE COMMENT [facility] Comment: CMG, CT(ASCP) CT screening location: [address] ??[phone] HPV nRNA E6/E7 Not Detected Not Detected [facility] Comment: Methodology: [employer]-Mediated Amplification This assay detects E6/E7 viral messenger RNA (mRNA) from 14 high-risk HPV types (16,18,31,33,35,39,45,51,52,56,58,59,66,68). ? The analytical performance characteristics of this assay have been determined by [employer]. The modifications have not been cleared or approved by the FDA. This assay has been validated pursuant to the CLIA regulations and is used for clinical purposes. ?? For additional information, please refer to http://[employer].ThromboVision/faq/DFB593v2 (This link if provided for information/ educational [...] SYSTEM Statement Of Adequacy: SATISFACTORY FOR EVALUATION [facility] Trichomonas vaginalis, QL, TMA, PAP Vial NOT DETECTED NOT DETECTED [facility] Comment: The analytical performance characteristics of this assay have been determined by [employer]. The modifications have not been cleared or approved by the FDA. This assay has been validated pursuant to the CLIA regulations and is used for clinical purposes. ?? For additional information, please refer to http://[employer].ThromboVision/ faq/Trichomonastma (This link is being provided for information/ educational purposes only.) ?? 07/10/2021 11:5 0 AM EDT Mallory Sprageu MD LAB PATHOLOGY ORDERABLES F inal Result Performing Organization Address City/[facility]/ZIP Co de Phone Number [facility] [address] * Pap Smear (07/10/2021 12:00 AM EDT) Swab Historical Provider LAB CYTOLOGY ORDERABLES F inal Result Performing Organization Address City/[facility]/ZIP Co de Phone Number IMAGING * OCCULT BLOOD STOOL (07/12/2019 5:08 AM EDT) OCCULT BLOOD STOOL NEG NEG [facility] 07/12/2019 5:08 AM EDT Historical Provider LAB BODY FLUIDS AND STOOL S ORDERABLES Final Result Performing Organization Address City/[facility]/ZIP Co de Phone Number [facility] [address] from Last 3 Months or Most Recently Relevant to Health Maintenance Insurance [facility] C3 Care Teams News Clerk Relationship Specialty Start Date End Date Celestine, MD Mallory [address] [place] [address] PCP - General Family Medicine 04/25/18 Mahendra Schilling MD [address] [place] [address] Cardiology 05/16/24 Ness Chauhan DO [address] [place] [phone] Orthopaedic Surgery 05/16/24 Dr. Duran [facility] Psychiatry 05/16/24
--- OUTSIDE RECORDS SUMMARY | 2024-07-27 16:27 | XMS_ITS | Encounter Summary ---
Author Organization [employer] [facility] Address [address] [place] [address] 7t [place] [address] Care Team Providers Care Senior Engineering Team Leader Name Role Phone Mallory Sprague MD Primary Care Provider [phone] Mahendra Schilling MD Unavailable [phone] Ness Chauhan DO Unavailable [phone] Reason for Visit * Reason Comments Med Refill Encounter Details Date Type Department Care Team (Late st Contact Info) Description 11/25/2022 Refill [facility] MEDICINE [address] [place] [address] [facility] [address] [place] [address] Social History Tobacco Use Types Packs/Day Years [...] documented as of this encounter Care Teams Senior Engineering Team Leader Relationship Specialty Start Date End Date Mallory Sprague MD [address] [place] [address] PCP - General Family Medicine 04/25/18 Mahendra Schilling MD [address] [place] [address] Cardiology 05/16/24 Ness Chauhan DO [address] [place] [phone] Orthopaedic Surgery 05/16/24 Dr. Duran [facility] Psychiatry 05/16/24 documented as of this encounter
--- OUTSIDE RECORDS SUMMARY | 2024-07-27 16:27 | XMS_ITS | Patient Health Record ---
Author Organization [facility] Address [address] [place] [phone] Care Team Providers Care Mainframe Architect Name Role Phone Mallory Sprague MD Primary [...] Problem Status W/U Status Risk Notes Problem [id number] Iron deficiency anemia, unspecified iron deficiency anemia type (D50.9) Active confirmed Plan Of Treatment Future Test Test Name Order Date UPPER GI ENDOSCOPY 09/25/2021 COLONOSCOPY 09/25/2021 Insurance Providers Payer Name Payer Address Payer Phone Subscriber Number Group Number Insured Name Patient Relationship to Insured Coverage Start Date Coverage End Date [facility] [address] [facility] [place] [phone] [id number] KATHERINE REICH Self - patient is the [...]
--- OUTSIDE RECORDS SUMMARY | 2024-07-27 16:27 | XMS_ITS | Encounter Summary ---
Author Organization [employer] [facility] Address [address] [place] [address] 7t [place] [address] Care Team Providers Care Varitype Operator Name Role Phone Mallory Sprague MD Primary Care Provider [phone] Mahendra Schilling MD Unavailable [phone] Ness Chauhan DO Unavailable [phone] Encounter Details Date Type Department Care Team (Late st Contact Info) Description 06/22/2022 Abstract [facility] MEDICINE [address] [place] [address] Mallory Sprague MD [address] [place] [address] Social History Tobacco Use Types Packs/Day Years [...] documented as of this encounter Care Teams Varitype Operator Relationship Specialty Start Date End Date Mallory Sprague MD [address] [place] [address] PCP - General Family Medicine 04/25/18 Mahendra Schilling MD [address] [place] [address] Cardiology 05/16/24 Ness Chauhan DO [address] [place] [phone] Orthopaedic Surgery 05/16/24 Dr. Roger Fajardo [facility] Psychiatry 05/16/24 documented as of this encounter
== END 2024-07-27 15:06 | disposition home or self-care (01) ==
LOC: HO.MAMMO 15:05
PROVIDERS: PCP Family Medicine; Visit Provider Family Medicine
DX: Z12.31 Encounter for screening mammogram for malignant neoplasm of breast (principal)
CPT/HCPCS: 77063; 77067

== ENCOUNTER 2025-03-14 11:02 | Outpatient (REF) | payer MEDICAID, SELFPAY ==
--- OUTSIDE RECORDS SUMMARY | 2025-03-14 11:15 | XMS_ITS | Encounter Summary ---
Author Organization [employer] Address [address] [place] [address] 7t [place] [address] Care Team Providers Care Hog Ribber Name Role Phone Mallory Sprague MD Primary Care Provider [phone] Mahendra Schilling MD Unavailable [phone] Ness Chauhan DO Unavailable [phone] Desmond Weinstein MD Unavailable Monsonjuly Unavailable Reason for Referral * Consultation (Routine) - Pending Review Specialty Diagnoses / Procedures Referred By Contac t Referred To Contact Dermatology Diagnoses Hyperpigmentation Mallory Sprague MD [address] [place] [address] Phone: tel: fax: Referral ID Status Reason Start Date Expiration Date Visits Requested Visits Authorized [id number] Pending Review Specialty Services Required 5 03/14/2026 1 1 * Consultation (Routine) - Pending Review Specialty Diagnoses / Procedures Referred By Contac t Referred To Contact Neurology Diagnoses Memory deficit Mallory Sprague MD [address] [place] [address] Phone: tel: fax: Referral ID Status Reason Start Date Expiration Date Visits Requested Visits Authorized [id number] Pending Review Specialty Services Required 5 03/14/2026 1 1 * Consultation (Routine) - Pending Review Specialty Diagnoses / Procedures Referred By Lanie angel Referred To Contact Audiology Diagnoses Hearing difficulty of both ears Mallory Sprague MD [address] [place] [address] Phone: tel: fax: Referral ID Status Reason Start Date Expiration Date Visits Requested Visits Authorized [id number] Pending Review Specialty Services Required 5 03/14/2026 1 1 * Consultation (Routine) - Pending Review Specialty Diagnoses / Procedures Referred By Lanie angel Referred To Contact Podiatry Diagnoses Foot pain, bilateral Onychomycosis Mallory Sprague MD [address] [place] [address] Phone: tel: fax: Referral ID Status Reason Start Date Expiration Date Visits Requested Visits Authorized [id number] Pending Review Specialty Services Required 03/14/2026 1 1 Encounter Details Date Type Department Care Team (Latest Contact Info) Description 03/14/2025 11:15 AM EST Office Visit [facility] MEDICINE [address] [place] [address] Mallory Sprague MD [address] [place] [address] Hyperpigmentation (Primary Dx); Foot pain, bilateral; Onychomycosis; Hearing difficulty of both ears; Memory deficit; Encounter for immunization; Menopause Social History Tobacco Use Types Packs/Day Years Used Date Smoking Tobacco: Never Smokeless Tobacco: Never Depression Answer Date Recorded Patient Health Questionnaire-9 Score 7 03/06/2025 Patient Health Questionnaire-9 Score 7 03/06/2025 Last PHQ-9: Questionnaire Data Not on file 1 05/06/2024 Housing Stability Answer Date Recorded What is [...] Answer Date Recorded Patient Health Questionnaire-2 Score 4 03/06/2025 Internet Access Answer Date Recorded Internet Access [...] AM EDT documented as of this encounter Last Filed Vital Signs Vital Sign Reading Time Taken Comments Blood Pressure 122/68 03/14/2025 11:40 AM EST Pulse 85 03/14/2025 11:40 AM EST Temperature 37.2 C (98.9 F) 03/14/2025 11:40 AM EST Respiratory Rate 20 03/14/2025 11:4 0 AM EST Oxygen Saturation 98% 03/14/2025 11: 40 AM EST Inhaled Oxygen Concentration - - Weight 76.6 kg (168 lb 12.8 oz) 025 11:40 AM EST Height - - Body Mass Index 30.87 02/13/2025 3:29 PM EDT documented in this encounter Progress Notes * Mallory Sprague MD - 03/14/2025 11:15 AM EST Subjective Tika is a 54 y.o. adult with PMHx of OA knees, depression, CAD, hypothyroid, anemia, DLD c/o L knee pain and swelling for several years who presents for multiple concerns. Interim history: Last PCP visit 04/2024 for annual exam Then televisit 01/2025 for perimenopausal symptoms Ms. Delgado presents with multiple ongoing concerns and a complex symptom profile. The clinical history is challenging to elucidate, as she reports a long-standing pattern of numerous somatic symptoms affecting multiple organ systems. During the review of systems, she endorses a broad array of symptoms however today she reports she is doing much worse. The breadth of reported symptoms necessitates a careful and empathetic approach focusing on what is most distressing to her which include: Facial changes: She repots several months of facial hyperpigmentation. Denies sun exposure or new creams/serums. She reported yes to most questions on ROS including dizziness, salt craving, nausea, vomiting and fatigue. Urinary symptoms - Reports difficulty with urination, including a sensation of needing to urinate but being unable to do so, especially while at work - Denies pain with urination Skin and nail changes - Reports a fungal infection affecting the great toe on left foot, persistent despite multiple treatments and cleaning efforts Foot pain -Reports bilateral pain at the ends of her toes at night when lying down. Hearing loss - Reports difficulty hearing, especially when watching television or when others are speaking; can hear voices from a distance but cannot understand what is being said Gastrointestinal symptoms and post-surgical history - Reports lifelong episodes of stomach pain, nausea, and vomiting since undergoing a gynecological surgery - States that vomiting and nausea have been persistent since the surgery Colorectal history - History of colon polyp removal many years ago - Has not had a follow-up colonoscopy since the initial polyp removal due to scheduling conflicts related to family travel. I gave her the number again today 03/14/25 and encouraged her to call. Memory concerns - Reports memory problems, including difficulty remembering things and concern about a past episodeof unconsciousness after taking a pill, with worry that this may have affected memory. On multiple occasions she has requested neurology fro memory concern. She has not come in for [place] testing. Mother had dementia. She reports she wants a neurology referral for feeling she losing my mind diffic ulty with memory. Family is telling her her memory is not well. Dizziness - Reports experiencing dizziness Psychiatric history - Reports ongoing treatment with a psychiatrist and therapist, with current use of prescribed psychiatric medications -mother Mar 2024 Perimenopause -perimenopausal symptoms much improved with HRT. She request refill. Misc - Denies any recreational drugs - Denies tobacco use - Reports embarrassment and self-consciousness due to facial skin changes Current Outpatient Medications: amLODIPine (Norvasc) 10 MG tablet, Take by mouth Once per day. Patient followed [facility] with Dr. Petros Schilling DO., Disp: , Rfl: aspirin 81 MG EC tablet, Take 81 mg by mouth Once per day. [facility] Petros Schilling DO., Disp: , Rfl: busPIRone (Buspar) 30 MG tablet, Take 1 tablet by mouth 2 times daily., Disp: , Rfl: carvedilol (Coreg) 6.25 MG tablet, Take 6.25 mg by mouth with breakfast and with evening meal., Disp: , Rfl: DULoxetine (Cymbalta) [address] capsule, Take 20 mg by mouth 2 times daily. Do not crush or chew. Dr. Duran, Disp: , Rfl: estradiol (Climara) 0.05 MG/24HR, Place 1 patch on the skin 1 (one) time per week., Disp: 12 patch,Rfl: 3 furosemide (Lasix) 20 MG tablet, Take by mouth., Disp: , Rfl: isosorbide mononitrate ER (Imdur) 30 MG 24 hr tablet, Take 30 mg by mouth Once per day. Do not crush or chew., Disp: , Rfl: levothyroxine (Synthroid, Levoxyl) 150 MCG tablet, TAKE 1 TABLET BY MOUTH EVERY DAY, Disp: 90 tablet, Rfl: 0 lidocaine (Lidoderm) 5 % patch, Apply 1 patch topically in the morning. Remove & discard patch within 12 hours or as directed by MD., Disp: 30 patch, Rfl: 5 loratadine (Claritin) 10 MG tablet, Take 1 tablet (10 mg) by mouth Once per day., Disp: 30 tablet, Rfl: 11 LORazepam (Ativan) 0.5 MG tablet, Take by mouth., Disp: , Rfl: pregabalin (Lyrica) 150 MG capsule, Take 150 mg by mouth 2 times daily. Per ortho, Disp: , Rfl: traMADol (Ultram) 50 MG tablet, Take by mouth. Per ortho, Disp: , Rfl: No Known Allergies Past Medical History: Diagnosis Date Blurry vision 05/24/2022 Episodic memory loss 03/30/2023 likely sequela of fibromyalgia given severity of symptoms neuro referral placed 03/30/23 Fibromyalgia Headache, frequent episodic tension-type 03/30/2023 likely sequela of fibromyalgia given severity of symptoms neuro referral placed 03/30/23 History of gastric bypass 05/24/2022 History of non-ST elevation myocardial infarction (NSTEMI) 05/24/[address] Tam . Although pt [...] test. Er precautions given. If concern for Hypercholesterolemia 12/12/2024 Hypothyroidism Knee pain 02/03/2012 Moderate major depression (CMS/HCC) ([facility]) NSTEMI (non-ST elevated myocardial infarction) ([facility]) 05/2010 Unstable angina pectoris (CMS/HCC) ([facility]) 12/12/2024 Past Surgical History: Procedure Laterality Date APPENDECTOMY CHOLECYSTECTOMY COSMETIC SURGERY abdominoplasty, breast implants GASTRIC BYPASS HYSTERECTOMY LIPOSUCTION Family History Problem Relation Name Age of Onset Diabetes Mother Objective Visit Vitals BP 122/68 (BP Location: Left arm, Patient Position: Sitting, BP Cuff Size: Adult) Pulse 85 Temp 98.9 ??F (37.2 ??C) (Temporal) Resp 20 Wt 168 lb 12.8 oz (76.6 kg) SpO2 98% BMI 30.87 kg/m?? Smoking Status Never BSA 1.83 m?? Physical Exam Constitutional: Appearance: Normal appearance. HENT: Right Ear: Tympanic membrane normal. Mouth/Throat: Mouth: Mucous membranes are moist. Pharynx: Oropharynx is clear. Eyes: Pupils: Pupils are equal, round, and reactive to light. Cardiovascular: Heart sounds: Normal heart sounds. No murmur heard. Pulmonary: Breath sounds: Normal breath sounds. Abdominal: General: Abdomen is flat. Palpations: Abdomen is soft. Skin: Comments: Hyperpigmentation over cheeks and forehead 54 y.o. adult annual evaluation. Assessment & Plan Hyperpigmentation Although hyperpigmentation is not in the typical distribution for Addion's disease, the constellation of symptoms she has necessitates ruling it out. She Dose not have orthostatic hypotension in the office today. She does answer yestto questions of fatigue, weight loss, nausea, abdominal pain, and salt craving. Her GI symptoms may be attributed to her history of bariatric surgery and recent GLP1 use. She does have facial fat waisting which may be attributable to Addisons vs her weight loss interventions. Laboratory findings frequently include hyponatremia, hyperkalemia, and sometimes anemia or eosinophilia. Labs were drawn today and we await the results. Will check an licensed mental health counselor (8 am) serum cortisol and ACTH measurement but she is traveling today and can't get this done for the next few weeils. A low cortisol (typically <5 g/dL or <138 nmol/L), and elevated ACTH is (often >2 upper limit of normal) would support a diagnosis of Clarke's disease If the morning cortisol is indeterminate (5-15 ??g/dL), a cosyntropin (ACTH stimulation) test can be ordered. Failure of serum cortisol to rise above 18-20 ??g/dL (500-550 nmol/L) at 30 or 60 minutes post-cosyntropin confirms adrenal i nsufficiency. Orders: Referral to Dermatology; Future ACTH, Plasma; Future Cortisol Random; Future Foot pain, bilateral Given multiple foot concerns, referral to podiatry placed. Orders: Referral to Podiatry; Future Onychomycosis Orders: Referral to Podiatry; Future Hearing difficulty of both ears Orders: Referral to Audiology; Future Memory deficit Reporting memory deficit for years. Fmailiy history dementia. Has not come in for MOCA. Awaiting labs including B12, TSH and RPR. -referral to neurology placed 03/14/25 Orders: Referral to Neurology; Future Encounter for immunization Orders: FLU VACCINE TRIVALENT [id number] (Fluarix) 19 yrs + Menopause Final Menstrual Period: circa 2022 Symptoms: controlled after HRT started Risk factors for osteoporosis: none Orders: estradiol (Climara) 0.05 MG/24HR; Place 1 patch on the skin 1 (one) time per week. This note was drafted using Ambient (AI) technology. The patient/patient's guardian has been informed and has consented to the use of this technology: Yes documented in this encounter Miscellaneous Notes * Assessment & Plan Note - Mallory Sprague MD - 03/14/2025 11:15 AM EST Associated Problem(s): Memory deficit Reporting memory deficit for years. Fmailiy history dementia. Has not come in for MOCA. Awaiting labs including B12, TSH and RPR. -referral to neurology placed 03/14/25 Orders: Referral to Neurology; Future * Assessment & Plan Note - Mallory Sprague MD - 03/14/2025 11:15 AM EST Associated Problem(s): Hyperpigmentation Although hyperpigmentation is not in the typical distribution for Addion's disease, the constellation of symptoms she has necessitates ruling it out. She Dose not have orthostatic hypotension in the office today. She does answer yestto questions of fatigue, weight loss, nausea, abdominal pain, and salt craving. Her GI symptoms may be attributed to her history of bariatric surgery and recent GLP1 use. She does have facial fat waisting which may be attributable to Addisons vs her weight loss interventions. Laboratory findings frequently include hyponatremia, hyperkalemia, and sometimes anemia or eosinophilia. Labs were drawn today and we await the results. Will check an licensed mental health counselor (8 am) serum cortisol and ACTH measurement but she is traveling today and can't get this done for the next few weeils. A low cortisol (typically <5 g/dL or <138 nmol/L), and elevated ACTH is (often >2 upper limit of normal) would support a diagnosis of Clarke's disease If the morning cortisol is indeterminate (5-15 ??g/dL), a cosyntropin (ACTH stimulation) test can be ordered. Failure of serum cortisol to rise above 18-20 ??g/dL (500-550 nmol/L) at 30 or 60 minutes post-cosyntropin confirms adrenal i nsufficiency. Orders: Referral to Dermatology; Future ACTH, Plasma; Future Cortisol Random; Future documented in this encounter Plan of Treatment Upcoming Encounters Date Type Department Care Team (Late st Contact Info) Description 04/02/2025 11:30 AM EST Clinical Support [address] [address] 04/29/2025 9:15 AM EST Office Visit [address] [address] Mallory Sprague MD [address] [place] [address] Scheduled Orders Name Type Priority Associated Diagnoses Orde r Schedule ACTH, Plasma Lab Routine Hyperpigmentation Expected: 03/14/2025 (Approximate), Expires: 03/14/2026 Cortisol Random Lab Routine Hyperpigmentation Expected: 03/14/2025 (Approximate), Expires: 03/14/2026 Scheduled Referrals Name Type Priority Associated Diagnoses Order Schedule Referral to Podiatry Outpatient Referral Routine Foot pain, bilateral Onychomycosis Expected: 03/14/2025 (Approximate), Expires: 03/14/2026 Referral to Audiology Outpatient Referral Routine Hearing difficulty of both ears Expected: 03/14/2025 (Approximate), Expires: 03/14/2026 Referral to Neurology Outpatient Referral Routine Memory deficit Expected: 03/14/2025 (Approximate), Expires: 03/14/2026 Referral to Dermatology Outpatient Referral Routine Hyperpigmentation Expected: 03/14/2025 (Approximate), Expires: 03/14/2026 documented as of this encounter Visit Diagnoses Diagnosis Hyperpigmentation- Primary Other dyschromia Foot pain, bilateral Onychomycosis Dermatophytosis of nail Hearing difficulty of both ears Memory deficit Memory loss Encounter for immunization Menopause Symptomatic menopausal or female climacteric states documented in this encounter Additional Health Concerns Assessment Noted Time PHQ-9 Depression Total Score: 7 03/06/20 25 3:55 PM EST documented as of this encounter Care Teams Hog Ribber Relationship Specialty Start Date End Date Mallory Sprague MD [address] [place] [address] PCP - General Family Medicine 04/25/18 Mahendra Schilling MD [address] [place] [address] Cardiology 05/16/24 Ness Chauhan DO [address] [place] [phone] Orthopaedic Surgery 05/16/24 Desmond Weinstein MD [address] [place] [address] [address] [place] [address] Cardiology 11/27/24 Ermias Juli [address] [place] [address] Drive 3rd [place] [address] Gastroenterology 03/06/25 Dr. Duran [facility] Psychiatry 05/16/24 documented as of this encounter
[2025-03-14 12:58] LABS: MANUAL DIFF FLAG NO
[2025-03-14 13:12] LABS: Hematocrit 36.0 % (37.0-47.0); Hemoglobin 11.4 g/dl (12.0-16.0); Imm Gran Abs Auto 0.01 X10*3/uL (0.00-0.03); Imm Gran Pct Auto 0.3 % (0.0-0.4); Lymphocytes Absolute Auto 1.4 X10*3/uL (1.2-4.9); Mean Corpuscular HGB Conc 31.7 g/dl (31.0-35.0); Mean Corpuscular Hemoglobin 31.6 pg (27.0-33.0); Mean Corpuscular Volume 99.7 fL (80.0-98.0); NRBC Abs Auto 0.000 X10*3/uL (0.0-0.012); NRBC Pct Auto 0.0 /100WBC (0.0-0.2); Platelet Count 365 X10*3/uL (160-400); Red Blood Count 3.61 X10*6/uL (4.20-5.50); White Blood Count 3.8 X10*3/uL (4.8-10.8)
[2025-03-14 14:01] LABS: Folate 12.2 ng/mL (> or = 4.0); Vitamin B12 270 pg/mL (200-900)
[2025-03-14 14:13] LABS: Alanine Aminotransferase 14 U/L (0-31); Albumin Level 4.4 g/dL (3.5-5.0); Alkaline Phosphatase 113 U/L (39-117); Anion Gap 10 (12-20); Aspartate Amino Transferase 22 U/L (5-31); Blood Urea Nitrogen 13 mg/dL (9-16); Calcium 9.5 mg/dL (8.4-10.2); Carbon Dioxide 23 mmol/L (22-29); Chloride 113 mmol/L (96-108); Estimated Glomerular Filt Rate > 60; Iron 41 mcg/dL (30-160); Percent Iron Saturation 13 % (15-50); Potassium 4.0 mmol/L (3.3-5.1); Sodium 142 mmol/L (135-145); Total Iron Binding Capacity 305 mcg/dL (228-428); Total Protein 6.8 g/dL (6.5-8.0); Unsaturated Iron Binding 264 ug/dL
[2025-03-14 14:16] LABS: Ferritin 31 ng/mL (10-250)
--- OUTSIDE RECORDS SUMMARY | 2025-03-14 17:02 | XMS_ITS | Encounter Summary ---
Author Organization [employer] Address [address] [facility] 7t [place] [address] Care Team Providers Care Home Care Chaplain Name Role Phone Mallory Sprague MD Primary Care Provider [phone]- [phone] Mahendra Schilling MD Unavailable [phone] Ness Chauhan DO Unavailable [phone] Desmond Weinstein MD Unavailable Monsonjuly Unavailable Encounter Details Date Type Department Care Team (Latest Contact Info) Description 03/14/2025 Travel Social History Tobacco Use Types Packs/Day Years [...] as of this encounter Plan of Treatment Upcoming Encounters Date Type Department Care Team (Late st Contact Info) Description 04/02/2025 11:30 AM EST Clinical Support [address] [address] 04/29/2025 9:15 AM EST Office Visit [address] [address] Mallory Sprague MD [address] [place] [address] documented as of this encounter Visit Diagnoses Not on filedocumented in this encounter Additional Health Concerns Assessment Noted Time PHQ-9 Depression Total Score: 7 03/06/20 25 3:55 PM EST documented as of this encounter Care Teams Home Care Chaplain Relationship Specialty Start Date End Date Mallory Sprague MD [address] [place] [address] PCP - General Family Medicine 04/25/18 Mahendra Schilling MD [address] [place] [address] Cardiology 05/16/24 Ness Chauhan DO [address] [place] [phone] Orthopaedic Surgery 05/16/24 Desmond Weinstein MD [facility] [address] [place] [address] Cardiology 11/27/24Monson, July [address] [place] [address] 3rd [place] [address] Gastroenterology 03/06/25 Dr. Duran [facility] Psychiatry 05/16/24 documented as of this encounter
--- OUTSIDE RECORDS SUMMARY | 2025-03-14 17:02 | XMS_ITS | Clinical Summary ---
Author Organization [facility] Address [address] [address] Phone Care Team Providers Care Marketing Intelligence Manager Name Role Phone Michelle Hurtado MD Primary Care Provider [phone] Social History Tobacco Use Types Packs/Day Years Used Date Smoking Tobacco: Never Assessed Education Answer Date Recorded Are you interested in more education? Not on darline e 08/20/2022 Are you concerned about learning? Not on file 08/20/2022 No 08/20/2022 No 08/20/2022 Digital Access Answer Date Recorded No 09/20/2022 No 09/20/2022 No 09/20/2022 Reliable internet access at home? Not on file 09/20/2022 Device with a working camera? Not on file Comments Unknown Sex and Gender Information Value Date Recorded Sex Assigned at Not on file Legal Sex Female 10:31 PM EDT Gender Identity Not on file Sexual Orientation Not on file Plan of Treatment Not on file Medical Devices Not on file Insurance [facility] NON NSP [facility] PCP [facility] NON NSPG PCP [facility] NON NSPG PCP [facility] NON NSPG PCP [facility] NON NSPG PCP [facility] NON NSPG PCP [facility] NON NSPG PCP [facility] NON NSPG PCP [employer] [employer] Care Teams Marketing Intelligence Manager Relationship Specialty Start Date End Date Michelle Hurtado MD [address] [place] [address] PCP - General 03/28/19 Additional Source Comments The information contained in this document represents components of the legal health record. It is not the complete legal health record.[facility]
--- OUTSIDE RECORDS SUMMARY | 2025-03-14 17:02 | XMS_ITS | Encounter Summary ---
Author Organization [employer] Address [address] [facility] 7t [place] [address] Care Team Providers Care Wood Drilling Machine Operator Name Role Phone Mallory Sprague MD Primary Care Provider +1- [phone] Mahendra Schilling MD Unavailable [phone] Ness Chauhan DO Unavailable [phone] Desmond Weinstein MD Unavailable Monsonjuly Unavailable Encounter Details Date Type Department Care Team (Late st Contact Info) Description 10/10/2024 Orders Only [facility] [address] [place] [address] Provider, MD Daysi Social History Tobacco Use Types Packs/Day Years Used Date Smoking Tobacco: Never Smokeless Tobacco: Never Depression Answer Date Recorded Patient Health Questionnaire-9 Score 14 05/16/2024 Patient Health Questionnaire-9 Score 14 05/16/2024 Last PHQ-9: Questionnaire Data Not on file 0 05/16/2024 Housing Stability Answer Date Recorded What is your housing situation today? I have changpoonam islas 05/16/[address] you [...] Description 04/02/2025 11:30 AM EST Clinical Support [address] [address] 04/29/2025 9:15 AM EST Office Visit [address] [address] Mallory Sprague MD [address] [place] [address] documented as of this encounter Procedures Procedure Name Priority Date/Time Associated Diagnosis Comments STRESS TEST, REGADENOSON WITH MYOCARDIAL PERFUSION SPECT (SINGLE STUDY) Routine 09/25/2024 11:25 AM EDT documented in this encounter Results * Regadenoson stress test with myocardial perfusion SPECT (single study) (09/25/2024 11:25 AM EDT) us Historical Provider CV STRESS PROCEDURES Ava l Result documented in this encounter Visit Diagnoses Not on filedocumented in this encounter Additional Health Concerns Assessment Noted Time PHQ-9 Depression Total Score: 14 025 3:48 PM EST documented as of this encounter Care Teams Wood Drilling Machine Operator Relationship Specialty Start Date End Date Mallory Sprague MD [address] [place] [address] PCP - General Family Medicine 04/25/18 Mahendra Schilling MD [address] [place] [address] Cardiology 05/16/24 Ness Chauhan DO [address] [place] [phone] Orthopaedic Surgery 05/16/24 Desmond Weinstein MD [address] [place] [address] [address] [place] [address] Cardiology 11/27/[address] 3rd [place] [address] Gastroenterology 03/06/25 Dr. Duran [facility] Psychiatry 05/16/24 documented as of this encounter
--- OUTSIDE RECORDS SUMMARY | 2025-03-14 17:02 | XMS_ITS | Encounter Summary ---
Author Organization [employer] Address [address] [place] [address] 7t [place] [address] Care Team Providers Care Mining Captain Name Role Phone Mallory Sprague MD Primary Care Provider + [phone] Mahendra Schilling MD Unavailable [phone] Ness Chauhan DO Unavailable [phone] Desmond Weinstein MD Unavailable Monsonjuly Unavailable Reason for Visit * Reason Onset Date Comments Med Refill 02/18/2023 Encounter Details Date Type Department Care Team (Late st Contact Info) Description 02/18/2023 Telephone [facility] MEDICINE [address] [place], [place] [phone] Mallory Sprague MD [address] [place], [place] [phone] Med Refill Social History Tobacco Use Types Packs/Day Years Used Date Smoking Tobacco: Never Smokeless Tobacco: Never Depression Answer Date Recorded Patient Health Questionnaire-9 Score 0 05/26/2022 Housing Stability Answer Date Recorded What is your housing situation today? I have changpoonam islas 02/16/[address] you [...] Description 04/02/2025 11:30 AM EST Clinical Support [facility] MEDICINE [address] [place] [address] 04/29/2025 9:15 AM EST Office Visit [facility] MEDICINE [address] [place] [address] Mallory Sprague MD [address] [place] [address] documented as of this encounter Visit Diagnoses Not on filedocumented in this encounter Additional Health Concerns Assessment Noted Time PHQ-9 Depression Total Score: 0 05/26/19 23 10:56 AM EST documented as of this encounter Care Teams Mining Captain Relationship Specialty Start Date End Date Mallory Sprague MD [address] [place] [address] PCP - General Family Medicine 04/25/18 Mahendra Schilling MD [address] [place] [address] Cardiology 05/16/24 Ness Chauhan DO [address] [place] [phone] Orthopaedic Surgery 05/16/24 Desmond Weinstein MD [address] [place] [address] [address] [place] [address] Cardiology 11/27/24July [address] [place] [address] 3rd [place] [address] Gastroenterology 03/06/25 Dr. Duran [facility] Psychiatry 05/16/24 documented as of this encounter
--- OUTSIDE RECORDS SUMMARY | 2025-03-14 17:02 | XMS_ITS | Patient Health Record ---
Author Organization [facility] Address [address] [place] [phone] Care Team Providers Care Manager Of Financial Planning Name Role Phone Mallory Sprague MD Primary Care Provider Jim Beavers Jr Unavailable [phone] Allergies No Known Allergies Reason For Referral No Information Medications Medication SIG (Take, Route, Frequency, Duration) Notes Start Date End Date Status GaviLAX 17 GM/SCOOP Powder TAKE 17 GM MT XED IN 8 OUNCES OF WATER, COFFEE OR TEA ONCE DAILY Oral; Duration: 30 Active Docusate Sodium 100 MG Capsule TAKE 2 CAPSULES BY MOUTH EVERY DAY NEEDED FOR CONSTIPATION Oral; Duration: 30 Active Aspirin Low Dose 81 MG Tablet Delayed Release TAKE 1 TABLET BY MOUTH EVERY DAY Oral; Duration: 30 Active B12 5000 MCG Tablet Sublingual as directed Sublingual 09/23/2021 Activ e MiraLax (colon prep) 17 GM/SCOOP Powder mixed with Gatorade or Crystal Light Orally begin at 5:00 p.m. the day before the procedure; Duration: 1 day 09/25/2021 Active Isosorbide Mononitrate ER 30 MG Tablet Extended Release 24 Hour TAKE 1 TABLET BY MOUTH EVERY EVENING Diagnosis Unavailable Oral; Duration: 30 Active amLODIPine Besylate 10 MG Tablet TAKE 1 TABLET BY MOUTH EVERY DAY Oral; Duration: 30 Active Furosemide 20 MG Tablet TAKE 1 TABLET BY MOUTH EVERY DAY Oral; Duration: 30 Active Carvedilol 3.125 MG Tablet TAKE 1 TABLET BY MOUTH TWICE DAILY WITH FOOD Oral; Duration: 90 Active Pantoprazole Sodium 20 MG Tablet Delayed Release TAKE 1 TABLET BY MOUTH TWICE DAILY Oral; Duration: 30 Active Sucralfate 1 GM Tablet TAKE 1 TABLET BY MOUTH FOUR TIMES DAILY, BEFORE MEALS AND AT BEDTIME Oral; Duration: 23 Active Levothyroxine Sodium 150 MCG Tablet TAKE 1 TABLET BY MOUTH EVERY DAY Oral; Duration: 30 Active Immunizations Vaccine Route Administration Date Status Comme nts Influenza Unknown 03/09/2021 Administered Social History Tobacco Use: Social History Observation Description Date Details (start date - stop date) Never Smoker NA - NA Social History Drugs/Alcohol: Social Info Question Answer Notes Alcohol Screen Did you have a drink containing alcohol in the past year? No Points 0 Interpretation Negative Tobacco Use: Social Info Question Answer Notes Tobacco Use/Smoking Patient is a nonsmoker Additional Details Category Social Info Options Details Miscellaneous: Marital status: single Occupation: works full-time Problems Problem Type SNOMED Code ICD Code Onset Dates Problem Status W/U Status Risk Notes Problem Iron deficiency anemia (11772046) Iron deficiency anemia, unspecified iron deficiency anemia type (D50.9) Active confirmed Plan Of Treatment Future Test Test Name Order Date UPPER GI ENDOSCOPY 09/25/2021 COLONOSCOPY 09/25/2021 Insurance Providers Payer Name Payer Address Payer Phone Subscriber Number Group Number Insured Name Patient Relationship to Insured Coverage Start Date Coverage End Date [facility] [facility] [address] [place] [address] [id number] KATHERINE REICH Self - patient is the insured Medical (General) History Medical History History ICD Code Hypertension Hyperlipidemia Chest pain with negative car diac catheterization 05/14, question microvascular disease or coronary spasm Depression Iron deficiency anemia Osteoarthritis EGD 03/12 mild gastritis, no H. pylori, surgical changes from [facility] Surgical History Surgery Date(Month/Year) Appendectomy Tubal ligation Laparoscopic gastric bypass, [facility] 2004 Augmentation mammoplasty Abdominoplasty
--- OUTSIDE RECORDS SUMMARY | 2025-03-14 17:02 | XMS_ITS | Encounter Summary ---
Author Organization [employer] Address [address] [place] [address] 7t [place] [address] Care Team Providers Care Operating Room Registered Nurse Name Role Phone Mallory Sprague MD Primary Care Provider [phone] Mahendra Schilling MD Unavailable [phone] Ness Chauhan DO Unavailable Desmond Weinstein MD Unavailable Monsonjuly Unavailable Reason for Visit * Reason Onset Date Comments chartprep 03/13/2025 Encounter Details Date Type Department Care Team (Late st Contact Info) Description 03/13/2025 Telephone [facility] MEDICINE [address] [place], [place] [phone] Mallory Sprague MD [address] [place], [place] [phone] chartprep Social History Tobacco Use Types Packs/Day Years [...] encounter Miscellaneous Notes * Telephone Encounter - Lydia Heath [place] - 03/13/2025 4:27 PM EST ..Chart Prep Labs: not done I spoke with the pt Images: done Mammo Vaccines due: Covid Due, Flu Due, and RSV in Pharmacy Due Referrals: Not Applicable Screenings: Colonoscopy Overdue care gaps: Sbirt and SDOH documented in this encounter Plan of Treatment Upcoming Encounters Date Type Department Care Team (Late st Contact Info) Description 04/02/2025 11:30 AM EST Clinical Support [facility] MEDICINE [address] [place] [phone] 04/29/2025 9:15 AM EST Office Visit [facility] MEDICINE [address] [place] [address] Mallory Sprague MD [address] [place] [address] documented as of this encounter Visit Diagnoses Not on filedocumented in this encounter Additional Health Concerns Assessment Noted Time PHQ-9 Depression Total Score: 7 03/06/20 3:55 PM EST documented as of this encounter Care Teams Operating Room Registered Nurse Relationship Specialty Start Date End Date Mallory Sprague MD [address] [place] [address] PCP - General Family Medicine 04/25/18 Mahendra Schilling MD [address] [place] [address] Cardiology 05/16/24 Ness Chauhan DO [address] [place] [phone] Orthopaedic Surgery 05/16/24 Desmond Weinstein MD [address] [place] [address] [address] [place] [address] Cardiology 11/27/24July [address] [place] [address] Drive 3rd [place] [address] Gastroenterology 03/06/25 Dr. Duran [facility] Psychiatry 05/16/24 documented as of this encounter
--- OUTSIDE RECORDS SUMMARY | 2025-03-14 17:02 | XMS_ITS | Encounter Summary ---
Author Organization [employer] Address [address] [place] [address] 7t [place] [address] Care Team Providers Care Trauma Nurse Name Role Phone Mallory Sprague MD Primary Care Provider [phone]- [phone] Mahendra Schilling MD Unavailable [phone] Ness Chauhan DO Unavailable Desmond Weinstein MD Unavailable Monsonjuly Unavailable Encounter Details Date Type Department Care Team (Late st Contact Info) Description 06/22/2022 Abstract [facility] MEDICINE [address] [place], [place] [phone] Mallory Sprague MD [address] [place], [place] [phone] Social History Tobacco Use Types Packs/Day Years [...] Description 04/02/2025 11:30 AM EST Clinical Support [address] [address] 04/29/2025 9:15 AM EST Office Visit [address] [address] Mallory Sprague MD [address] [place] [address] documented as of this encounter Visit Diagnoses Not on filedocumented in this encounter Additional Health Concerns Assessment Noted Time PHQ-9 Depression Total Score: 0 05/26/19 10:56 AM EST documented as of this encounter Care Teams Trauma Nurse Relationship Specialty Start Date End Date Mallory Sprague MD [address] [place] [address] PCP - General Family Medicine 04/25/18 Mahendra Schilling MD [address] [place] [address] Cardiology 05/16/24 Ness Chauhan DO [address] [place] [phone] Orthopaedic Surgery 05/16/24 Desmond Weinstein MD [address] [place] [address] Cardiology 11/27/24 Ermias July [address] [place] [address] 3rd [place] [address] Gastroenterology 03/06/25 Dr. Duran [facility] Psychiatry 05/16/24 documented as of this encounter
--- OUTSIDE RECORDS SUMMARY | 2025-03-14 17:03 | XMS_ITS | Encounter Summary ---
Author Organization [employer] Address [address] [place] [address] 7t [place] [address] Care Team Providers Care Web Applications Developer Name Role Phone Mallory Sprague MD Primary Care Provider [phone] Mahendra Schilling MD Unavailable [phone] Ness Chauhan DO Unavailable [phone] Desmond Weinstein MD Unavailable Monsonjuly Unavailable Reason for Visit * Reason Comments Med Refill Encounter Details Date Type Department Care Team (Late st Contact Info) Description 08/31/2024 Refill [facility] MEDICINE [address] [place], [place] [phone] Mallory Sprague MD [address] [place], [place] [phone] BMI 37.0-37.9, adult Social History Tobacco Use Types Packs/Day Years [...] Description 04/02/2025 11:30 AM EST Clinical Support [address] [address] 04/29/2025 9:15 AM EST Office Visit [address] [address] Mallory Sprague MD [address] [place] [address] documented as of this encounter Visit Diagnoses Diagnosis BMI 37.0-37.9, adult documented in this encounter Additional Health Concerns Assessment Noted Time PHQ-9 Depression Total Score: 14 025 3:48 PM EST documented as of this encounter Care Teams Web Applications Developer Relationship Specialty Start Date End Date Mallory Sprague MD [address] [place] [address] PCP - General Family Medicine 04/25/18 Mahendra Schilling MD [address] [place] [address] Cardiology 05/16/24 Ness Chauhan DO [address] [place] [phone] Orthopaedic Surgery 05/16/24 Desmond Weinstein MD [address] [place] [address] [address] [place] [address] Cardiology 11/27/24 MonsonJuly [address] [place] [address] 3rd [place] [address] Gastroenterology 03/06/25 Dr. Roger Fajardo [facility] Psychiatry 05/16/24 documented as of this encounter
--- OUTSIDE RECORDS SUMMARY | 2025-03-14 17:03 | XMS_ITS | Encounter Summary ---
Author Organization [employer] Address [address] [place] [address] 7t [place] [address] Care Team Providers Care Instrument Repair Technician Name Role Phone Mallory Sprague MD Primary Care Provider [phone]- [phone] Mahendra Schilling MD Unavailable [phone] Ness Chauhan DO Unavailable [phone] Desmond Weinstein MD Unavailable Monsonjuly Unavailable Reason for Visit * Reason Comments Med Refill Encounter Details Date Type Department Care Team (Late st Contact Info) Description 06/19/2024 Refill [facility] MEDICINE [address] [place], [place] [phone] Mallory Sprague MD [address] [place], [place] [phone] Other specified hypothyroidism; Chronic constipation Social History [...] Description 04/02/2025 11:30 AM EST Clinical Support [facility] MEDICINE [address] [place] [address] 04/29/2025 9:15 AM EST Office Visit [facility] MEDICINE [address] [place] [address] Mallory Sprague MD [address] [place] [address] documented as of this encounter Visit Diagnoses Diagnosis Other specified hypothyroidism Chronic constipation Unspecified constipation documented in this encounter Additional Health Concerns Assessment Noted Time PHQ-9 Depression Total Score: 14 025 3:48 PM EST documented as of this encounter Care Teams Instrument Repair Technician Relationship Specialty Start Date End Date Mallory Sprague MD [address] [place] [address] PCP - General Family Medicine 04/25/18 Mahendra Schilling MD [address] [place] [address] Cardiology 05/16/24 Ness Chauhan DO [address] [place] [phone] Orthopaedic Surgery 05/16/24 Desmond Weinstein MD [address] [place] [address] [address] [place] [address] Cardiology 11/27/24July [address] [place] [address] 3rd [place] [address] Gastroenterology 03/06/25 Dr. Duran [facility] Psychiatry 05/16/24 documented as of this encounter
--- OUTSIDE RECORDS SUMMARY | 2025-03-14 17:03 | XMS_ITS | Encounter Summary ---
Author Organization [facility] Address [address] [place] [address] Phone Care Team Providers Care Weekend Caregiver Name Role Phone Michelle Hurtado MD Primary Care Provider [phone] Encounter Details Date Type Department Care Team (Latest Contact Info) Description 03/28/2019 Ancillary Orders [facility] [address] [place] [address] [place] [address] Mahendra Schilling DO [address] [place] [address] Chest pain, unspecified type Social History Tobacco Use Types Packs/Day Years Used Date Smoking Tobacco: Never Assessed Comments Unknown Sex and Gender Information Value Date Recorded Sex Assigned at Not on file Legal Sex Female 10:31 PM EDT Gender Identity Not on file Sexual Orientation Not on file documented as of this encounter Plan of Treatment Not on file documented as of this encounter Results * Holter Monitor 24 Hours (03/28/2019 11:52 AM EST) Anatomical Region Laterality Modality Heart Other Narrative 03/28/2019 12:37 PM EST 24-hour monitor: The baseline rhythm is sinus with a minimum heart rate 4, maximum 120, average 75 bpm. There are no long pauses present. Rare PACs and PVCs are present. There is no diary returned. There are no patient event markers. Impression: Normal 24-hour monitor. No diary submitted. Procedure Note Trace Lopez MD - 03/28/2019 24-hour monitor: The baseline rhythm is sinus with a minimum heart rate 4,maximum 120, average 75 bpm. There are no long pauses present. Rare PACsand PVCs are present. There is no diary returned. There are no patientevent markers. Impression: Normal 24-hour monitor. No diary submitted. us Mahendra Schilling DO CV CARDIAC SERVICES ORDERABLE S Final Result documented in this encounter Visit Diagnoses Diagnosis Chest pain, unspecified type Chest pain, unspecified type documented in this encounter Care Teams Weekend Caregiver Relationship Specialty Start Date End Date Michelle Hurtado MD [address] [place] [address] PCP - General 03/28/19 documented as of this encounter Additional Source Comments The information contained in this document represents components of the legal health record. It is not the complete legal health record.[facility]
--- OUTSIDE RECORDS SUMMARY | 2025-03-14 17:03 | XMS_ITS | Clinical Summary ---
Author Organization [employer] Address [address] [facility] [address] [place] [address] Care Team Providers Care Patient Placement Coordinator Name Role Phone Mallory Sprague MD Primary Care Provider [phone]- [phone] Mahendra Schilling MD Unavailable [phone] Ness Chauhan DO Unavailable [phone] Desmond Weinstein MD Unavailable July Unavailable Allergies No known active allergies Medications lidocaine (Lidoderm) 5 % patchIndications :Chronic pain of left knee Apply 1 patch topically in the morning. Remove & discard patch within 12 hours or as directed by MD. 30 patch 5 023 Active traMADol (Ultram) 50 MG tabletIndication s:Left knee pain, unspecified chronicity Take by mouth. Per ortho Active pregabalin (Lyrica) 150 MG capsuleIndicatio ns:Fibromyalgia Take 150 mg by mouth 2 times daily. Per ortho Active loratadine (Claritin) 10 MG tabletIndication s:Seasonal allergies Take 1 tablet (10 mg) by mouth Once per day. 30 tablet 11 03/07/20 25 3:58 PM EST 025 2025 Active busPIRone (Buspar) 30 MG tabletIndication s:Moderate major depression (CMS/HCC) (HCC) Take 1 tablet by mouth 2 times daily. 025 Active carvedilol (Coreg) 6.25 MG tabletIndication s:History of non-ST elevation myocardial infarction (NSTEMI) Take 6.25 mg by mouth with breakfast and with evening meal. 024 Active amLODIPine (Norvasc) 10 MG tabletIndication s:History of non-ST elevation myocardial infarction (NSTEMI) Take by mouth Once per day. Patient followed at [facility] associates with Dr. Petros Schilling DO. Active aspirin 81 MG EC tabletIndication s:History of non-ST elevation myocardial infarction (NSTEMI) Take 81 mg by mouth Once per day. Patient followed at [facility] associates with Dr. Petros Schilling DO. Active DULoxetine (Cymbalta) [address] Nick ns:Moderate major depression (CMS/HCC) (HCC) Take 20 mg by mouth 2 times daily. Do not crush or chew. Dr. Duran Active LORazepam (Ativan) 0.5 MG tabletIndication s:Moderate major depression (CMS/HCC) (HCC) Take by mouth. Active isosorbide mononitrate ER (Imdur) 30 MG 24 hr tabletIndication s:History of non-ST elevation myocardial infarction (NSTEMI) Take 30 mg by mouth Once per day. Do not crush or chew. Active furosemide (Lasix) 20 MG tabletIndication s:History of non-ST elevation myocardial infarction (NSTEMI) Take by mouth. Activ e levothyroxine (Synthroid, Levoxyl) 150 MCG tabletIndication s:Other specified hypothyroidism TAKE 1 TABLET BY MOUTH EVERY DAY 90 tablet 025 Active estradiol (Climara) 0.05 MG/24HRIndicatio ns:Menopause Place 1 patch on the skin 1 (one) time per week. 12 patch 3 025 Active albuterol 108 (90 Base) MCG/ACT inhalerIndicatio ns:COVID-19 Inhale 2 puffs every 6 (six) hours if needed for wheezing. 18 g 11 023 2024 Discontinued pantoprazole (ProtoNix) 20 MG EC tabletIndication s:Dyspepsia Take 1 tablet (20 mg) by mouth 2 times daily. 60 tablet 023 2024 Discontinued polyethylene glycol, PEG, 3350 (GaviLAX) 17 GM/SCOOP powderIndication s:Chronic constipation 17 grams in 8 oz liquid po daily prn constipation 520 g 2 025 2024 Discontinued docusate sodium (Colace) 100 MG capsuleIndicatio ns:Chronic constipation Take 1 tab po bid prn constipation 180 capsule 025 2024 Discontinued Tirzepatide-Weig ht Management (Zepbound) 10 MG/0.5ML solution auto-injectorInd ications:BMI 37.0-37.9, adult Inject 0.5 mL (10 mg) under the skin every 7 (seven) days. 2 mL 11 025 2024 Discontinued estradiol (Climara) 0.05 MG/24HRIndicatio ns:Menopause APPLY 1 PATCH TRANSDERMALLY ONCE WEEKLY 12 patch 3 025 2024 Discontinued(R eorder (will not trigger notification to Pharmacy)) Active Problems Problem Noted Date Diagnosed Date Hyperpigmentation 03/14/2025 Overview (03/14/2025): Although hyperpigmentation is not in the typical [...] we await the results. 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 A low cortisol (typically <5 g/dL or <138 nmol/L), and elevated ACTH is (often >2 upper limit of normal) would support a diagnosis of Sequoyah's disease If the morning cortisol is indeterminate (5-15 g/dL), a cosyntropin (ACTH stimulation) test can be ordered. Failure of serum cortisol to rise above 18-20 g/dL (500-550 nmol/L) at 30 or 60 minutes post-cosyntropin confirms adrenal insufficiency. Assessment & Plan (03/14/2025 12:38 PM EST): Although hyperpigmentation is not in the typical [...] we await the results. 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 A low cortisol (typically <5 g/dL or <138 nmol/L), and elevated ACTH is (often >2 upper limit of normal) would support a diagnosis of Tyrell's disease If the morning cortisol is indeterminate (5-15 g/dL), a cosyntropin (ACTH stimulation) test can be ordered. Failure of serum cortisol to rise above 18-20 g/dL (500-550 nmol/L) at 30 or 60 minutes post-cosyntropin confirms adrenal insufficiency. Orders: Referral to Dermatology; Future ACTH, Plasma; Future Cortisol Random; Future Cyst of breast 12/12/2024 Hypercholesterolemia 12/12/2024 Hypertension 12/12/2024 Menorrhagia 12/12/2024 Morbid obesity (CMS/HCC) 12/12/2024 Unstable angina pectoris (CMS/HCC) 12/12/2024 Uses Macedonian as primary spoken language 12/13/19 25 Uterine leiomyoma 12/12/2024 History of myocardial infarction 12/12/2024 Encounter for screening mamm ogram for malignant [...] 2.5mg q 4 weeks with max 15mg/wk Memory deficit 03/30/2023 Overview (03/30/2023): likely sequela of fibromyalgia given severity of symptoms neuro referral placed 03/30/23 Assessment & Plan (03/14/2025 12:38 PM EST): Reporting memory deficit for years. Fmailiy history dementia. Has not come in for MOCA. Awaiting labs including B12, TSH and RPR. -referral to neurology placed 03/14/25 Orders: Referral to Neurology; Future Assessment & Plan (03/30/2023 10:15 AM EST): likely sequela of fibromyalgia given severity of symptoms neuro referral placed 03/30/23 Perimenopause 03/29/2023 Overview (03/29/2023): -05/2022 pt reported [...] due after 05/16/25 -eye care facilitated by [facility] seen 07/2022 -dental home is [facility] care proxy given and filed 05/16/24 Assessment & Plan (05/16/2024 3:51 PM EST): -next comprehensive annual evaluation due after 05/16/25 -eye care facilitated by [facility] seen 07/2022 -dental home is [facility] care proxy given and filed 05/16/24 Colon [...] screening on 06/10/21 -At visit 08/2021 [place] [facility] report pt had multiple GI concerns and colonoscopy to be discussed at next visit. -GI notes 01/2023 states colonoscopy to be scheduled H/O: hysterectomy 05/26/2022 Iron deficiency anemia 05/26/2022 Overview (05/16/2024): Lab Results Component Value Date HGB 12.3 06/08/2022 HGB 10.4 (L) 06/10/2021 HEMATOCRIT 36.4 06/08/2022 HEMATOCRIT 30.8 (L) 06/10/2021 -Followed by joint setter, Dr. Devries -hematology note from 09/23/23 reviewed Assessment & Plan (03/06/2025 1:07 PM EST): Orders: CBC auto differential; Future Ferritin; Future TSH with Reflex to Free T4; Future Iron And Total Iron Binding Capacity; Future Hepatic Function Panel; Future Assessment & Plan (03/30/2023 9:13 AM EST): [...] to loose weight. She is followed by [place] . Status post left knee surgery 05/24/2022 Assessment & Plan (05/24/2022 12:13 PM EST): Pt had surgery for left knee in [place] 01/2021 Right upper lobe pulmonary infiltrate 05/24/2022 Overview (03/29/2023): Patient reports she had a CT scan of the lungs in [place]. She reports this was done to evaluate for COVID and she was told she has spots on her lungs . The report in [place] says infiltrate in the posterior upper right [...] a CT scan of the lungs in [place]. She reports this was done to evaluate for COVID and she was told she has spots on her lungs . The report in [place] says infiltrate in the posterior upper right [...] a CT scan of the lungs in [place]. She reports this was done toe valuate for COVID and she was told she has spots on her lungs . The report in [place] says infiltrate in the posterior upper right lobe. Will check CT scan to evaluate for nodules. CTA done06/2019 after [place] reported No evidence of pulmonary embolism. Interval resolution of the previously seen airspace opacities within the lower lobes bilaterally. No aortic aneurysm or dissection. Left knee pain 05/24/2022 Overview (05/16/2024): - Pt was seen by [facility] 04/27/2022 for knee pain and she received an injection. -last note reviewed 07/2022 -Seen by [facility] on 02/16/24. Had bilateral knee steroid injections on 01/10/24 and again on 02/16/24. X-rays reviewed. Assessment & Plan (05/16/2024 4:03 PM EST): - Pt was seen by [facility] 04/27/2022 for knee pain and she received an injection. -last note reviewed 07/2022 -Seen by [facility] on 02/16/24. Had bilateral knee steroid injections on 01/10/24 and again on 02/16/24. X-rays reviewed. Assessment & Plan (03/30/2023 9:18 AM EST): - Pt was seen by [facility] 04/27/2022 for knee pain and she [...] with Dr. Chauhan on 08/12/21 -Seen by [facility] on 02/16/24. Underwent midline L5- S1 interlaminar epidural steroid injection on 01/30/24. Continues using Tramadol PRN for pain. Lumbar MRI reviewed. Assessment & Plan (05/16/2024 4:03 PM EST): - Followed by Orthopedics with Dr. Chauhan on 08/12/21 -Seen by [facility] on 02/16/24. Underwent midline L5- S1 interlaminar epidural steroid injection on 01/30/24. Continues using Tramadol PRN for pain. Lumbar MRI reviewed. Assessment & Plan (03/30/2023 9:19 AM EST): - Followed by Orthopedics with Dr. Chauhan on 08/12/21 Family history of malignant neoplasm of breast 0 05/24/2022 History of non-ST elevation myocardial infarctio n (NSTEMI) 05/24/2022 Overview (11/27/2024): Pt saw Dr. Tam . Although pt is labeled with NSTEMI in 05/2010, coronary angiogram was normal. The rise of troponin, which was intermediate, is unclear. Continue to optimize risk factors. She was hospitalized 05/2011 for chest pain, ruled out MA with enzymes and EKGs, stress test recommended as outpatient. Pt saw Dr. Pardo but did not have stress test. Er precautions given. If concern for cardiac disease, [facility] for [facility] test. - continues on carvedilol and lasix but does not have formal Dx of hypertension - stress test on 04/08/2022 that was unremarkable with an EF of 54%. She was seen by cardiology 04/22/22 and echocardiogram was ordered. -echo 06/2022 unremarkable with EF 55-60% with Dr. Tam -Patient followed at [facility] with Dr. Petros Shcilling, DO. Note from 09/06/24 reviewed, stress test ordered (due to reprot of chest pressure) , carotid US ordered (to to repot of facial numbness) -pharmacologic stress test with nuclear imaging done 09/25/2024 negative for evidence of ichemia. EF 51% and post stress test 55% no change compared to study done 04/08/2022 -note from Dr. Schilling 11/01/24 reveiwed recommending copression stocking 20- 30mmhg -seen by Dr. Weinstein at [facility] cardiology 11/28/27, sprionolactione 12.5mg daily started for hypertension but does not have dx with us. Will monitor. Assessment & Plan (07/02/2024 12:24 PM EDT): Pt saw Dr. Tam . Although pt is labeled with NSTEMI in 05/2010, coronary angiogram was normal. The rise of troponin, which was intermediate, is unclear. Continue to optimize risk factors. She was hospitalized 05/2011 for chest pain, ruled out MA with enzymes and EKGs, stress test recommended as outpatient. Pt saw Dr. Pardo but did not have stress test. Er precautions given. If concern for cardiac disease, will refer [facility] for [facility] stress test. - continues on carvedilol and lasix but does not have formal Dx of hypertension - stress test on 04/08/2022 that was unremarkable with an EF of 54%. She was seen by cardiology 04/22/22 and echocardiogram was ordered. -echo 06/2022 unremarkable with EF 55-60% with Dr. Tam -Patient followed at [facility] with Dr. Petros Schilling DO. Note from 09/01/23 reviewed, no changes Assessment & Plan (05/16/2024 4:08 PM EST): Pt saw Dr. Tam . Although pt is labeled with NSTEMI in 05/2010, coronary angiogram was normal. The rise of troponin, which was intermediate, is unclear. Continue to optimize risk factors. She was hospitalized 05/2011 for chest pain, ruled out MA with enzymes and EKGs, stress test recommended as outpatient. Pt saw Dr. Pardo but did not have stress test. Er precautions given. If concern for cardiac disease, will refer to [facility] for possible stress test. - continues on carvedilol and lasix but does not have formal Dx of hypertension - stress test on 04/08/2022 that was unremarkable with an EF of 54%. She was seen by cardiology 04/22/22 and echocardiogram was ordered. -echo 06/2022 unremarkable with EF 55-60% with Dr. Tam -Patient followed at [facility] with Dr. Petros Schilling DO. Note from 09/01/23 reviewed, no changes Assessment & Plan (03/30/2023 9:19 AM EST): Pt saw Dr. Tam . Although pt is labeled with NSTEMI in 05/2010, coronary angiogram was normal. The rise of troponin, which was intermediate, is unclear. Continue to optimize risk factors. She was hospitalized 05/2011 for chest pain, ruled out MA with enzymes and EKGs, stress test recommended as outpatient. Pt saw Dr. Pardo but did not have stress test. Er precautions given. If concern for cardiac disease, will refer to [facility] for possible stress test. - [...] hospitalized 05/2011 for chest pain, ruled out MA with enzymes and EKGs, stress test recommended [...] of breast implant 05/24/2022 Moderate major depression (CMS/HCC) 06/10/2021 Overview (05/16/2024): worsened depression with mixed anxiety after recent passing of her mother 03/2024 -continue cymbalta -advised [facility] of medication. -denies SI/HI -follows with psychiatrist at [facility] Assessment & Plan (03/06/2025 1:07 PM EST): ->6 months depression with mixed anxiety, continue cymbalta -advised [facility] of medication. -denies SI/HI -referred to behavior [facility] for psychotherapy 08/2024 Assessment & Plan (03/30/2023 9:17 AM EST): ->6 months depression with mixed anxiety, continue cymbalta -advised [facility] of medication. -denies SI/HI -referred to behavior health for psychotherapy. Assessment & Plan (05/24/2022 12:11 PM EST): >6 months depression with mixed anxiety, continue cymbalta advised [facility] of medication. denies SI/HI referred to [facility] for psychotherapy. Chronic abdominal pain 06/10/2021 Overview (05/16/2024): Not controlled. Likely exacerbated [...] Cymbalta -continue exercise as tolerated at her gym, [employer] Assessment & Plan (03/30/2023 9:18 AM [...] - continue exercise as tolerated at her [employer] Assessment & Plan (05/24/2022 12:12 PM EST): [...] - continue exercise as tolerated at her [employer] Fibromyalgia 06/10/2021 Overview (12/12/2024): Not controlled. Likely exacerbated by untreated depression [...] - continue exercise as tolerated at her [employer] Cobalamin deficiency 01/13/2012 Assessment & Plan (03/06/2025 1:07 PM EST): Orders: Vitamin B12 (Cobalamin) and Folate Panel, Serum; Future Dyslipidemia 01/13/2012 Overview (12/12/2024): Lab Results Component Value Date TRIG 106 06/08/2022 -continue lifestyle modification -ordered FLP and HFP 05/16/24 Lab Results Component Value Date TRIG 106 06/08/2022 -continue lifestyle modifications Assessment & Plan (05/16/2024 4:22 PM EST): Lab Results Component Value Date TRIG 106 06/08/2022 -continue lifestyle modification -ordered FLP and HFP 05/16/24 Assessment & Plan (03/30/2023 9:12 AM EST): Lab Results Component Value Date TRIG 106 06/08/2022 -continue lifestyle modifications Resolved Problems Problem Noted Date Diagnosed Date Resolved Date Dietary counseling 05/16/2024 Assessment & Plan (05/16/2024 [...] saturated fat, and sodium. Exercise counseling 05/16/2024 11/28/19 Assessment & Plan (05/16/2024 4:02 PM EST): Exercise Recommendations: At least 150 minutes of moderate-intensity physical activity per week, or an equivalent combination of moderate- and vigorous-intensity activity Headache, frequent episodic tension-type 03/30/2023 09/26/2023 Overview [...] vision 05/24/2022 09/26/2023 Depressive disorder 10/14/2014 03/29/20 Knee pain 02/03/2012 09/26/2023 Anemia 01/13/2012 05/16/2024 Acute non-ST segment elevati on myocardial infarction 01/13/2012 03/29/2023 Encounters Date Type Department Care Team Description 03/14/2025 11:15 AM EST Office Visit [address] [phone] Mallory Sprague MD Hyperpigmentation (Primary Dx); Foot pain, bilateral; Onychomycosis; Hearing difficulty of both ears; Memory deficit; Encounter for immunization; Menopause 03/14/2025 Travel 03/13/2025 Telephone [facility] [place] [address] Mallory Sprague MD chartprep 03/06/2025 11:30 AM EST Telemedicine [facility] [place] [address] Mallory Sprague MD Concern about memory (Primary Dx); Moderate major depression (CMS/HCC) (HCC); Cobalamin deficiency; Iron deficiency anemia, unspecified iron deficiency anemia type 03/06/2025 Travel 03/05/2025 Telephone [facility] [place] [address] Mallory Sprague MD chart prep 02/20/2025 Telephone [facility] [place] [address] Mallory Sprague MD chart prep 02/13/2025 3:30 PM EDT Clinical Support [address] [facility] [place] [phone] Caron Umaña, ARY BMI 31.0-31.9,adult 02/13/2025 Travel 01/18/2025 Telephone [facility] [address] [place] [address] [phone] Mallory Sprague MD Nurse Triage 01/18/[address] [phone] Mallory Sprague MD Prior Authorization 01/04/[address] [phone] Mallory Sprague MD Other specified hypothyroidism 12/12/2024 1:00 PM EDT Office Visit [facility] ADULT DENTAL [address] [place] [address] [phone] Nancy Hagen DDS Dental bridge present (Primary Dx) from Last 3 Months Immunizations Immunization Administration Dates Next Due DTaP 03/21/1984, 9,11/10/1978,10/13 Hep B, adult 06/10/2021,01/21/2010,02/22/2000 Influenza injectable quadriv alent IIV4 with preservative 01/23/2018,06/02/2017,04/15/2016 Influenza injectable quadriv alent preservative free 03/30/2023,05/26/2022,02/24/2022,06/10,05/08/2019,01/17/2019,03/07/2017 ,03/27/2015 Influenza, IIV3, injectable 03/09/2021,1 04/30/2013,01/14/2011,06/12 Influenza, Split (incl. heather fied surface antigen) 12/29/2012,01/13/2012 Influenza, seasonal, injecta ble, preservative free 05/16/2024,02/20/2016 MMR 01/21/2010,10/13/1977 Moderna Covid-19 Vaccine 12+ 05/26/2022, 06/23/2021,06/24/2020,07/22 OPV, Trivalent 03/21/1984, 9,11/10/1978,10/13 Pneumococcal Conjugate PCV 20 05/26/2022 Pneumococcal Polysaccharide PPSV23 02/20/2016, TD (adult), 2 Lf tetanus tox oid, [...] 12.8 oz) 025 11:40 AM EST Height 157.5 cm (5' 2 ) 02/13/2025 3:29 PM EDT Body Mass Index 30.87 02/13/2025 3:29 PM EDT Plan of Treatment Upcoming Encounters Date Type Department Care Team (Late st Contact Info) Description 04/02/2025 11:30 AM EST Clinical Support [facility] [address] [place] [phone] 04/29/2025 9:15 AM EST Office Visit [facility] [address] [place] [phone] Mallory Sprague MD [address] [place] [phone] Health Maintenance Due Date Last Done Comments CT Colonography 1972 Colonoscopy 1972 FIT DNA/Cologuard 1972 FIT 1972 Sigmoidoscopy 1972 Dental Oral Exam 06/12/2016 12/10/2015 Dental Prophylaxis 07/22/2016 01/22/2016 Colorectal Cancer Screening 07/11/2020 FOBT 07/11/2020 07/12/2019 RSV Patients and Patients Aged 60 years or older (1 - Risk 50-74 years 1-dose series) 2022 Influenza Vaccine (#1) 2024 , 03/30/2023, 05/26/2022, Additional history exists Alcohol/Substance Use Screening 05/16/2025 05/16/2024 Family Planning (PISQ) 05/16/2025 05/16/2024 SDOH Screening 05/16/2025 05/16/2024 Dental X-Ray: Full Mouth 07/14/2025 07/13/2022, 11/23 Dental X-Ray: Bitewings 12/13/2025 12/12/2024, 12/09 Depression Screening 03/06/2026 03/06/2025, 03/06/20 Disability Screening 03/06/2026 03/06/2025 COVID-19 Vaccine ( season) 2026 05/26/2022, 06/23/2021, 07/22/2020, Additional history exists Postponed from 12/24/2024 (Patient Refused) Tobacco Screening 03/14/2026 03/14/2025 Mammogram 07/27/2026 07/27/2024, 05/2022, 01/24/2023, Additional history exists Lipid Panel 07/24/2029 07/24/2024, 05/26, 06/10/2021 DTaP/Tdap/Td Vaccines (9 - Td or Tdap) 05/16/2034 05/16/2024, 09/11/2013, 01/13/2012, Additional history exists IPV Vaccines Completed 03/21/1984, 12/25, 11/10/1978, Additional history exists Hepatitis B Vaccines Completed 06/10/2021, 01/21/2010, 02/22/2000 Cervical Cancer Screening Discontinued HPV/Cotest Discontinued 07/10/2021, 01/09/2016 Pap Smear Discontinued 07/10/2021, 07/10/2021 Pneumococcal Vaccine: 50+ Years Completed 05/26/2022, 02/20/2016, 06/12/2010 HIV Screening Completed 06/08/2022 Hepatitis C Screening Completed 06/08/2022 Zoster Vaccines Completed 08/05/2023, 04/01/2023 HIB Vaccines Aged Out No longer eligi ble based on patient's age to complete this topic HPV Vaccines Aged Out No longer eligi ble based on patient's age to complete this topic Hepatitis A Vaccines Aged Out No long er eligible based on patient's age to complete this topic Meningococcal B Vaccine Aged Out No l onger eligible based on patient's age to complete [...] Procedure Name Priority Date/Time Associated Diagnosis Comments BASIC METABOLIC PANEL Routine 03/14/2025 11:16 AM EST Concern about memory HEPATIC FUNCTION PANEL Routine 11:16 AM EST Iron deficiency anemia, unspecified iron deficiency anemia type IRON AND TOTAL IRON BINDING CAPACITY Routine 03/14/2025 11:16 AM EST Iron deficiency anemia, unspecified iron deficiency anemia type TSH W/REFLEX TO FT4 Routine 03/14/2025 1 1:16 AM EST Iron deficiency anemia, unspecified iron deficiency anemia type FERRITIN Routine 03/14/2025 11:16 AM EST Iron deficiency anemia, unspecified iron deficiency anemia type CBC WITH AUTO DIFFERENTIAL Routine 03/14/2025 11:16 AM EST Iron deficiency anemia, unspecified iron deficiency anemia type VITAMIN B12/FOLATE, SERUM PANEL Routine 03/14/2025 11:16 AM EST Concern about memory CASE PRESENTATION, DETAILED AND EXTENSIVE TREATMENT PLANNING Routine 12/12/2024 1:00 PM EDT Dental bridge present BITEWING - SINGLE RADIOGRAPHIC IMAGE Routine 12/12/2024 1:00 PM EDT Dental bridge present INTRAORAL - PERIAPICAL FIRST RADIOGRAPHIC IMAGE Routine 12/12/2024 1:00 PM EDT Dental bridge present LIMITED ORAL EVALUATION - PROBLEM FOCUSED Routine 12/12/2024 1:00 PM EDT Dental bridge present BI MAMMOGRAM SCREEN W FINESSE W IMPLANTS SURYA Routine 07/27/2024 3:10 PM EDT LIPID PANEL, STANDARD Routine 07/24/2024 9:42 AM EDT History of gastric bypass HEPATITIS C AB W/REFL TO HCV RNA, QN, PCR Routine 06/08/2022 9:50 AM EST Seasonal allergies HIV 1/2 ANTIGEN/ANTIBODY, FOURTH GENERATION W/RFL Routine 06/08/2022 9:50 AM EST Seasonal allergies THINPREP IMAGING PAP AND HPV MRNA E6/E7, WITH CT/NG, TRICHOMONAS Routine 07/10/2021 11:50 AM EDT PAP SMEAR Routine 07/10/2021 12:00 AM EDT OCCULT BLOOD, FECAL, IMMUNOASSAY Routine 07/12/2019 5:08 AM EDT PROPHYLAXIS - ADULT Routine 01/22/2016 1 2:00 AM EDT INTRAORAL - COMPLETE SERIES OF RADIOGRAPHIC IMAGES Routine 12/10/2015 12:00 AM EDT COMPREHENSIVE ORAL EVALUATION - NEW OR ESTABLISHED PATIENT Routine 12/10/2015 12:00 AM EDT from Last 3 Months or Most Recently Relevant to Health Maintenance Results * Vitamin B12/Folate, Serum Panel (03/14/2025 11:16 AM EST) Vitamin B12 270 200 - 900 pg/mL [facility] Comment:NORMAL 200-900 PG/ML INDETERMINATE 160-199 PG/ML DEFICIENT < 160 PG/ML Folate 12.2 > or = 4.0 ng/mL [facility] Comment:Reference Values:> o r = 4.0 ng/mL< 4.0 ng/mL suggests folate deficiency Methotrexate, aminopterin and folinic acid(leucovorin) are chemotherapeutic agents whose molecularstructures are similar to folate; therefore, the Architectfolate assay cannot be used for patients using these drugs. Blood Venous blood specimen / Unknown 03/14/2025 11:16 AM EST 03/14/2025 12:50 PM EST us Mallory Sprague MD LAB BLOOD ORDERABLES Final Result [facility] [address] [place] [address] [phone] * TSH with Reflex to Free T4 (03/14/2025 11:16 AM EST) Pathologist [facility] TSH reflex Free T4 2.38 0.32 - 4.0 uIU/mL [facility] Blood Venous blood specimen / Unknown 03/14/2025 11:16 AM EST 03/14/2025 12:50 PM EST Mallory Sprague MD LAB BLOOD ORDERABLES Final Result Performing Organization Address City/State/[facility] Co de Phone Number [facility] [address] [place] [address] [phone] * (ABNORMAL) CBC auto differential (03/14/2025 11:16 AM EST) Pathologist [facility] White Blood Count 3.8(L) 4.8 - 10.8 X10*3/uL [facility] Red Blood Count 3.61(L) 4.20 - 5.50 X10*6/uL [facility] Hemoglobin 11.4(L) 12.0 - 16.0 g/dl [facility] Hematocrit 36.0(L) 37.0 - 47.0 % [facility] Mean Corpuscular Volume 99.7(H) 80.0 - 98.0 fL [facility] Mean Corpuscular Hemoglobin 31.6 27.0 - 33.0 pg [facility] Mean Corpuscular HGB Conc 31.7 31.0 - 35.0 g/dl [facility] Red Cell Distribution Width 13.1 11.0 - 16.0 % [facility] Platelet Count 365 160 - 400 X10*3/uL [facility] Mean Platelet Volume 9.6 9.4 - 12.3 fL [facility] Neutrophils Percent Auto 45.5 45 - 73 % [facility] Imm Gran Pct Auto 0.3 0.0 - 0.4 % [facility] Lymphocytes Percent Auto 36.8 20 - 40 % [facility] Monocytes Percent Auto 15.5(H) 2 - 11 % [facility] Eosinophils Percent Auto 1.1 0 - 4 % [facility] Basophils Percent Auto 0.8 0 - 2 % [facility] NRBC Pct Auto 0.0 0.0 - 0.2 /100WBC [facility] Neutrophils Absolute Auto 1.7(L) 2.0 - 8.3 x10*3/uL [facility] Imm Gran Abs Auto 0.01 0.00 - 0.03 X10*3/uL [facility] Lymphocytes Absolute Auto 1.4 1.2 - 4.9 X10*3/uL [facility] Monocytes Absolute Auto 0.6 0.1 - 1.2 X10*3/uL [facility] Eosinophils Absolute Auto 0.0 0.0 - 0.4 X10*3/uL [facility] Basophils Absolute Auto 0.0 0.0 - 0.2 X10*3/uL [facility] NRBC Abs Auto 0.000 0.0 - 0.012 X10*3/uL [facility] Blood Venous blood specimen / Unknown 03/14/2025 11:16 AM EST 03/14/2025 12:50 PM EST Mallory Sprague MD LAB BLOOD ORDERABLES Final Result [facility] [address] [place] [phone] * (ABNORMAL) Iron And Total Iron Binding Capacity (03/14/2025 11:16 AM EST) Iron 41 30 - 160 mcg/dL [facility] Total Iron Binding Capacity 305 228 - 428 mcg/dL [facility] Percent Iron Saturation 13(L) 15 - 50 % [facility] Unsaturated Iron Binding 264 ug/dL [facility] Blood Venous blood specimen / Unknown 03/14/2025 11:16 AM EST 03/14/2025 12:50 PM EST Mallory Sprague MD LAB BLOOD ORDERABLES Final Result [facility] [address] [place] [address] [phone] * Ferritin (03/14/2025 11:16 AM EST) Pathologist [facility] Ferritin 31 10 - 250 ng/mL [facility] Blood Venous blood specimen / Unknown 03/14/2025 11:16 AM EST 03/14/2025 12:50 PM EST Mallory Sprague MD LAB BLOOD ORDERABLES Final Result Performing Organization Address [facility] Co de Phone Number [facility] [address] [place] [address] [phone] * Hepatic Function Panel (03/14/2025 11:16 AM EST) [facility] Bilirubin, Total 0.3 0.0 - 1.0 mg/dL [facility] Bilirubin, Direct 0.1 0.0 - 0.5 mg/dL [facility] Aspartate Amino Transferase 22 5 - 31 U/L [facility] Alanine Aminotransferase 14 0 - 31 U/L [facility] Total Protein 6.8 6.5 - 8.0 g/dL [facility] Albumin Level 4.4 3.5 - 5.0 g/dL [facility] Alkaline Phosphatase 113 39 - 117 U/L [facility] Blood Venous blood specimen / Unknown 03/14/2025 11:16 AM EST 03/14/2025 12:50 PM EST Mallory Sprague MD LAB BLOOD ORDERABLES Final Result Performing Organization Address [facility] Co de Phone Number [facility] [address] [place] [phone] * (ABNORMAL) Basic Metabolic Panel (03/14/2025 11:16 AM EST) [facility] Sodium 142 135 - 145 mmol/L [facility] Potassium 4.0 3.3 - 5.1 mmol/L [facility] Chloride 113(H) 96 - 108 mmol/L [facility] Carbon Dioxide 23 22 - 29 mmol/L [facility] Anion Gap 10(L) 12 - 20 [facility] Urea Nitrogen (BUN) 13 9 - 16 mg/dL [facility] Creatinine, Serum 0.74 0.5 - 1.4 mg/dL [facility] Estimated Glomerular Filt Rate >60 [facility] Comment:Chronic Kidney Disea se: Estimated GFR < 60 mL/min/1.93v4Ifyrwl Kidney Disease: Estimated GFR < 15 mL/min/1.73m2 Glucose 98 60 - 115 mg/dL [facility] Calcium 9.5 8.4 - 10.2 mg/dL [facility] Blood Venous blood specimen / Unknown 03/14/2025 11:16 AM EST 03/14/2025 12:50 PM EST Mallory Sprague MD LAB BLOOD ORDERABLES Final Result Performing Organization Address City/State/[facility] Co de Phone Number [facility] [address] [place] [address] [phone] * BI Mammogram Screen w/ Finesse w/ Implants Surya (07/27/2024 3:10 PM EDT) Anatomical Region Laterality Modality Mammography 07/27/2024 3:10 PM EDT Narrative 08/03/2024 4:53 PM EDT [facility] [address] [place] [address] [place] [address] Mammography Report Signed Patient: Tika Carcamo MR#: [id number] : 1970 Acct:[id number] Age/Sex: 53 / F ADM Date: 07/27/24 Loc: [facility] Attending Dr: Mallory Sprague MD Ordering Physician: Mallory Sprague MD Results: 2B enign Findings Date of Service: 07/27/24 Follow Up: 1 Year From Orig inal Mammogram Procedure(s): MM tomosynthesis screen imp BI Accession Number(s): [id number] cc: Mallory Sprague MD EXAMINATION: MM SCREENING DIGITAL BREAST TOMOSYNTHESIS, BILATERAL CLINICAL INFORMATION: Screening. Asymptomatic. COMPARISON: Mammography: Comparison is made with relevant avialable priors. TECHNIQUE: Digital mammography is performed in craniocaudal and mediolateral oblique views along with computer-aided detection (CAD). Digital breast tomosynthesis is performed in implant-displaced craniocaudal and implant-displaced mediolateral oblique views along with computer-aided detection (CAD). FINDINGS: There are scattered areas of fibroglandular density (ACR BI-RADS breast composition Category b). Bilateral prepectoral silicone implants are stable appearing. There are no significant masses, abnormal calcifications, or other abnormalities. MM/MM tomosynthesis screen imp BI IMPRESSION: There are no significant changes from prior study. ASSESSMENT: BI-RADS BI-RADS 2 - Benign Findings RECOMMENDATION: Routine annual mammography screening. 1 year F/U This patient's information was entered into a reminder system with a target due date for their next mammogram. Electronically signed by: Ruth Nicholas DO 08/03/2024 04:49 PM EDT Dictated By: Ruth Nicholas DO Signed By: <Electronically signed by Ruth Nicholas DO in OV> 08/03/24 1649 DD/ 1510 TD/TT: 07/27/24 1526 Car Dumper: Procedure Note Donotuseinterpreter, Image - 08/03/2024 [facility] [address] [place] [address] Mammography Report Signed Patient: Tika Carcamo LMR#: [id number] : 1970Acct:[id number] Age/Sex: 53 / FADM Date: 07/27/24 Loc: HO.MAMMO Attending Dr: Mallory Sprague MD Ordering Physician: Mallory Sprague MDResults: 2B enign Findings Date of Service: 07/27/24Follow Up: 1 Year From Orig inal Mammogram Procedure(s): MM tomosynthesis screen imp BI Accession Number(s): [id number] cc: Mallory Sprague MD EXAMINATION: MM SCREENING DIGITAL BREAST TOMOSYNTHESIS, BILATERAL CLINICAL INFORMATION: Screening. Asymptomatic. COMPARISON: Mammography: Comparison is made with relevant avialable priors. TECHNIQUE: Digital mammography is performed in craniocaudal and mediolateral oblique views along with computer-aided detection (CAD). Digital breast tomosynthesis is performed in implant-displaced craniocaudal and implant-displaced mediolateral oblique views along with computer-aided detection (CAD). FINDINGS: There are scattered areas of fibroglandular density (ACR BI-RADS breast composition Category b). Bilateral prepectoral silicone implants are stable appearing. There are no significant masses, abnormal calcifications, or other abnormalities. MM/MM tomosynthesis screen imp BI IMPRESSION: There are no significant changes from prior study. ASSESSMENT: BI-RADS BI-RADS 2 - Benign Findings RECOMMENDATION: Routine annual mammography screening. 1 year F/U This patient's information was entered into a reminder system with a target due date for their next mammogram. Electronically signed by: Ruth Nicholas DO 08/03/2024 04:49 PM EDT Dictated By: Ruth Nicholas DO Signed By: <Electronically signed by Ruth Nicholas DO in OV> 08/03/24 1649 DD/ 1510 TD/TT: 07/27/24 1526 Car Dumper: Mallory Sprague MD IMG BI PROCEDURES Final Re sult * (ABNORMAL) Lipid Panel, Standard (07/24/2024 9:42 AM EDT) Triglycerides 88 <150 mg/dL [facility] Comment:Desirable Triglyceri de: less than 150 mg/dLBorderline High Triglyceride 150-199 mg/dLHigh Triglyceride: 200-499 mg/dLVery High Triglyceride: greater than or equal to 5OO mg/dL Cholesterol 209(H) <200 mg/dL [facility] Comment:Desirable Cholestero l: less than 200 mg/dLBorderline High Cholesterol: 200-239 mg/dLHigh Cholesterol: greater than 239 mg/dL LDL Cholesterol Calculated 126(H) <100 mg/dL [facility] Comment:Desirable LDL: less than 100 mg/dLNear Optimal/Above Optimal LDL: 110- 129 mg/dLBorderline High LDL: 130-159 mg/dLHigh LDL: 160-189 mg/dLVery High LDL: greater than or equal to 190 mg/dL HDL Cholesterol 66 >40 mg/dL [facility] Comment:Desirable HDL: great er than 40 mg/dL Note: This HDL assay may give artificially low results in patients with liver disease. Blood Venous blood specimen / Unknown 07/24/2024 9:42 AM EDT 07/24/2024 11:16 AM EDT Mallory Sprague MD LAB BLOOD ORDERABLES Final Result Performing Organization Address City/[facility] Co de Phone Number [facility] [address] [place] [phone] * Hepatitis C Antibody with Reflex to HCV, RNA, Quantitative, Real-Time PCR (06/08/2022 9:50 AM EST) Hepatitis C Antibody NON-REACT YAMILET NON-REACT YAMILET [facility] Index 0.03 <1.00 [facility] Comment: HCV antibody was non-reactive. There is no laboratory evidence of HCV infection. In most cases, no further action is required. However, if recent HCV exposure is suspected, a test for HCV RNA (test code 03782) is suggested. For additional information please refer to http://education.Blu Homes/faq/JKA48i8 (This link is being provided for informational/ educational purposes only.) Blood Venous blood specimen / Unknown 06/08/2022 9:50 AM EST 06/08/2022 9:51 AM EST Narrative [facility] - 06/11/2022 2:03 PM EST FASTING:YES FASTING: YES Mallory Sprague MD LAB BLOOD ORDERABLES Final Result Performing Organization Address City/[facility]/ZIP Co de Phone Number [address], [place] [address] [facility] [address] [facility], ([address]) [place] [address] * HIV-1/2 Antigen and Antibodies, Fourth Generation, with Reflexes (06/08/2022 9:50 AM EST) HIV Antigen/Antibody, 4th Generation NON-REAC TIVE NON-REAC TIVE [facility] [place] [facility] Comment: HIV-1 antigen and HIV-1/HIV-2 antibodies were not detected. There is no laboratory evidence of HIV infection. PLEASE NOTE: This information has been disclosed to you from records whose confidentiality may be protected by state law. If your state requires such protection, then the state law prohibits you from making any further disclosure of the information without the specific written consent of the person to whom it pertains, or as otherwise permitted by law. A general authorization for the release of medical or other information is NOT sufficient for this purpose. For additional information please refer to http://education.Blu Homes/faq/AOA206 (This link is being provided for informational/ educational purposes only.) The performance of this assay has not been clinically validated in patients less than 2 years old. Blood Venous blood specimen / Unknown 06/08/2022 9:50 AM EST 06/08/2022 9:51 AM EST Narrative [facility] - 06/11/2022 2:03 PM EST FASTING:YES FASTING: YES Mallory Sprague MD LAB BLOOD ORDERABLES Final Result [facility] [address] [facility] [place] [address] [facility] [place] [facility] [address] [facility], ([address]) [place] [address] * THINPREP TIS PAP AND HPV mRNA E6/E7, CT/NG, TRICH (07/10/2021 11:50 AM EDT) Chlamydia trachomatis RNA, TMA, Urogenital NOT DETECTED NOT DETECTED [facility] Clinical Information: None given [facility] COMMENT SEE COMMENT [facility] Comment: The analytical performance characteristics of this assay, when used to test SurePath(TM) specimens have been determined by [facility]. The modifications have not been cleared or approved by the FDA. This assay has been validated pursuant to the CLIA regulations and is used for clinical purposes. For additional information, please refer to https://NVoicePay.Blu Homes/faq/WQA513 (This link is being provided for information/ educational purposes only.) COMMENT SEE COMMENT [facility] Comment: EXPLANATORY NOTE: The Pap is a screening test for cervical cancer. It is not a diagnostic test and is subject to false negative and false positive results. It is most reliable when a satisfactory sample, regularly obtained, is submitted with relevant clinical findings and history, and when the Pap result is evaluated along with historic and current clinical information. COMMENT: This Pap test has been evaluated with computer assisted technology. [facility] Tire And Lube Technician: SEE COMMENT [facility] Comment: CMG, CT(ASCP) CT screening location: [place] [address] HPV nRNA E6/E7 Not Detected Not Detected [facility] Comment: Methodology: Optometric Coordinator-Mediated Amplification This assay detects E6/E7 viral messenger RNA (mRNA) from 14 high-risk HPV types (16,18,31,33,35,39,45,51,52,56,58,59,66,68). The analytical performance characteristics of this assay have been determined by [facility]. The modifications have not been cleared or approved by the FDA. This assay has been validated pursuant to the CLIA regulations and is used for clinical purposes. For additional information, please refer to http://NVoicePay.Blu Homes/faq/EYW718a5 (This link if provided for information/ educational purposes only.) Interpretation/Res ult: SEE COMMENT [facility] Comment: Negative for intraepithelial lesion or malignancy. Atrophic pattern; predominantly parabasal cells LMP: NONE GIVEN [facility] Neisseria gonorrhoeae RNA, TMA, Urogenital NOT DETECTED NOT DETECTED [facility] Prev. BX: NONE GIVEN [facility] Prev. PAP: NONE GIVEN [facility] SOURCE: None given [facility] Statement Of Adequacy: SATISFACTORY FOR EVALUATION [facility] Trichomonas vaginalis, QL, TMA, PAP Vial NOT DETECTED NOT DETECTED [facility] Comment: The analytical performance characteristics of this assay have been determined by [facility]. The modifications have not been cleared or approved by the FDA. This assay has been validated pursuant to the CLIA regulations and is used for clinical purposes. For additional information, please refer to http://education.Blu Homes/ faq/Trichomonastma (This link is being provided for information/ educational purposes only.) 07/10/2021 11:5 0 AM EDT Mallory Sprague MD LAB PATHOLOGY ORDERABLES F inal Result Performing Organization Address [facility]/ZIP Co de Phone Number [facility] [address] * Pap Smear (07/10/2021 12:00 AM EDT) Swab Historical Provider LAB CYTOLOGY ORDERABLES F inal Result Performing Organization Address [facility] Co de Phone Number IMAGING * OCCULT BLOOD STOOL (07/12/2019 5:08 AM EDT) OCCULT BLOOD STOOL NEG NEG [facility] 07/12/2019 5:08 AM EDT Historical Provider LAB BODY FLUIDS AND STOOL S ORDERABLES Final Result Performing Organization Address [facility] Co de Phone Number [facility] [address] from Last 3 Months or Most Recently Relevant to Health Maintenance [facility] STAND ADULT Care Teams Patient Placement Coordinator Relationship Specialty Start Date End Date [place], [place] Mallory [address] [place] [phone] PCP - General Family Medicine 04/25/18 Mahendra Schilling MD [address] [place] [address] Cardiology 05/16/24 Ness Chauhan DO [address] [place] [phone] Orthopaedic Surgery 05/16/24 Desmond Weinstein MD [address] [place] [address] [address] [place] [address] Cardiology 11/27/24MonsonJuly [address] [place] [address] 3rd [place] [address] Gastroenterology 03/06/25 [facility] Psychiatry 05/16/24
--- OUTSIDE RECORDS SUMMARY | 2025-03-14 17:03 | XMS_ITS | Encounter Summary ---
Author Organization [facility] Address [address] [place] [address] [address] [place] [address] Care Team Providers Care Matchbook Assembler Name Role Phone Mallory Sprague MD Primary Care Provider [phone] Maehndra Schilling MD Unavailable [phone] Ness Chahuan DO Unavailable [phone] Desmond Weinstein MD Unavailable Monsonjuly Unavailable Reason for Visit * Reason Comments Med Refill Encounter Details Date Type Department Care Team (Late Contact Info) Description 11/25/2022 Refill [facility] [address] [place] [address] [facility] [address] [place] [address] Social History Tobacco Use Types Packs/Day Years [...] Encounters Date Type Department Care Team (Late Contact Info) Description 04/02/2025 11:30 AM EST Clinical Support [facility] [address] [place] [phone] 04/29/2025 9:15 AM EST Office Visit [facility] [address] [place] [phone] Mallory Sprague MD [address] [place] [phone] documented as of this encounter Visit Diagnoses Not on filedocumented in this encounter Additional Health Concerns Assessment Noted Time PHQ-9 Depression Total Score: 0 05/26/19 10:56 AM EST documented as of this encounter Care Teams Matchbook Assembler Relationship Specialty Start Date End Date Mallory Sprague MD [address] [place] [phone] PCP - General Family Medicine 04/25/18 Mahendra Schilling MD [address] [place] [address] Cardiology 05/16/24 Ness Chauhan DO [address] [place] [phone] Orthopaedic Surgery 05/16/24 Desmond Weinstein MD [address] [place] [address] [address] [place] [address] Cardiology 11/27/24July [address] [place] [address] Drive 3rd [place] [address] Gastroenterology 03/06/25 Dr. Duran [facility] Psychiatry 05/16/24 documented as of this encounter
== END 2025-03-14 11:03 | disposition home or self-care (01) ==
LOC: HO.HHCL 11:02
PROVIDERS: PCP Family Medicine; Visit Provider Family Medicine
DX: Z11.3 Encounter for screening for infections with a predominantly sexual mode of transmission (principal); D50.8 Other iron deficiency anemias; R41.89 Other symptoms and signs involving cognitive functions and awareness
CPT/HCPCS: 36415; 80048; 80076; 82607; 82728; 82746; 83540; 84443; 85025; 86592

== ENCOUNTER 2025-04-19 14:09 | Outpatient (REF) | payer MEDICAID, SELFPAY ==
--- OUTSIDE RECORDS SUMMARY | 2025-04-19 14:11 | XMS_ITS | Patient Health Record ---
Author Organization [facility] Address [address] [place] [phone] Care Team Providers Care Midwife Practitioner Name Role Phone Mallory Sprague MD Primary Care Provider Jim Beavers Jr Unavailable Allergies No Known Allergies Reason For Referral No Information Medications Medication SIG (Take, Route, Frequency, Duration) Notes Start Date End Date Status GaviLAX 17 GM/SCOOP Powder TAKE 17 GM AK XED IN 8 OUNCES OF WATER, COFFEE [...] Status Risk Notes Problem Iron deficiency anemia (56053450) Iron deficiency anemia, unspecified iron deficiency anemia type (D50.9) Active confirmed Plan Of Treatment Future Test Test Name Order Date UPPER GI ENDOSCOPY 09/25/2021 COLONOSCOPY 09/25/2021 Insurance Providers Payer Name Payer Address Payer Phone Subscriber Number Group Number Insured Name Patient Relationship to Insured Coverage Start Date Coverage End Date [facility] [address] [place] [phone] [id number] KATHERINE REICH Self - patient is the [...]
--- OUTSIDE RECORDS SUMMARY | 2025-04-19 14:11 | XMS_ITS | Encounter Summary ---
Author Organization [facility] Address [address] [facility] [address] [place] [address] Phone Care Team Providers Care Grocery Checker Name Role Phone Michelle Hurtado MD Primary Care Provider [phone] Encounter Details Date Type Department Care Team (Latest Contact Info) Description 03/28/2019 Ancillary Orders [facility] [address] [place] [address] [place] [address] Mahendra Schilling DO [address] [place] [address] Chest pain, unspecified type Social History Tobacco [...] type documented in this encounter Care Teams Grocery Checker Relationship Specialty Start Date End Date Michelle Hurtado MD [address] [place] [address] PCP - General 03/28/19 documented as of this encounter Additional Source Comments The information contained in this document represents components of the legal health record. It is not the complete legal health record.[facility]
--- OUTSIDE RECORDS SUMMARY | 2025-04-19 14:11 | XMS_ITS | Clinical Summary ---
Author Organization [facility] Address [address] [address] Phone Care Team Providers Care [employer] Operator Name Role Phone Michelle Hurtado MD Primary Care Provider [phone] Social History Tobacco Use Types Packs/Day Years Used Date Smoking Tobacco: Never Assessed Education Answer Date Recorded Are you interested in more education? Not on darlien e 08/20/2022 Are you concerned about learning? [...] file Medical Devices Not on file Insurance [facility] NON NSP PCP [facility] NON NSPG PCP [employer] NON NSPG PCP [employer] NON NSPG PCP [employer] NON NSPG PCP [employer] NON NSPG PCP [employer] NON NSPG PCP [employer] NON NSPG PCP S[employer] CONNE[employer] [facility] NON NSPG PCP [employer] Care Teams [employer] Relationship Specialty Start Date End Date Michelle Hurtado MD [address] [place] [address] PCP - General 03/28/19 Additional Source Comments The information contained in this document represents components of the legal health record. It is not the complete legal health record.[facility]
== END 2025-04-19 14:10 | disposition home or self-care (01) ==
LOC: HO.LAB 14:09
PROVIDERS: PCP Family Medicine; Visit Provider Family Medicine
DX: L81.9 Disorder of pigmentation, unspecified (principal)
CPT/HCPCS: 36415; 82024; 82533